=== PATIENT | female | born 1975 | race Caucasian/White ===

== ENCOUNTER → 2017-10-31 11:37 | Outpatient (CLI) | payer MEDICARE, SELFPAY ==
[2017-10-31 14:36] LABS: Anion Gap 8 (5-15); BUN 17 mg/dL (7-18); BUN/Creat Ratio 19.1 RATIO (10-20); Calcium,Total 8.6 mg/dL (8.5-10.1); Chloride 105 mmol/L (98-107); Creatinine, Serum 0.89 mg/dL (0.55-1.02); EST Glomerular Filtration Rate 73 mL/min (>60); Est Glom Filt Rate - Afr Amer 89 mL/min (>60); Glucose 98 mg/dL (74-106); Sodium Level 139 mmol/L (136-145)
[2017-11-01 08:33] LABS: Vitamin D,25 Hydroxy 52.5 ng/mL (29.95-100.01)
== END ==
PROVIDERS: Family Provider Family Medicine; PCP Family Medicine; Visit Provider Family Medicine
DX: I27.20 Pulmonary hypertension, unspecified (principal); E55.9 Vitamin D deficiency, unspecified
CPT/HCPCS: 36415; 80048; 82306

== ENCOUNTER → 2017-12-23 12:07 | Outpatient (CLI) | payer MEDICARE, SELFPAY ==
--- NOTE | 2017-12-23 09:00 | LES_PTH ---
PATIENT: ZAC LOCKHART LOC: [facility] U#:[id number] AGE/SX: 49/F ROOM: RE12/23/[address]: Dr. Ricky Augustin MD : 1975 BED: DIS: SPEC #: [id number] RECD: 12/23/17 11:50 STATUS: ADIA MIHIR #: [id number] KENZIE: 12/23/17 09:[address]: Ricky Augustin DEPT: SURGICAL PATHOLOGY RECD BY: Vitaliy Farias ENTERED: 12/25/17 10:36 SP TYPE: Lesion OTHR DR: Dr. Ed Barajas MD Tissues: A - Skin of arm B - Skin of arm C - Skin of arm Procedures: Surgery Specimen Level III HEADER OPERATION: Excision of subcutaneous lesions x3 PRE-OP DIAGNOSIS: Lesion of subcutaneous tissue L98.9 TISSUE SUBMITTED: A ? Subcutaneous lesion of right anterior arm, B - Subcutaneous lesion of right elbow, C - Subcutaneous lesion of left elbow MICROSCOPIC DIAGNOSIS A. Subcutaneous lesion, right anterior arm, biopsy: Mature adipose tissue, consistent with lipoma. B. Subcutaneous lesion, right elbow, biopsy: Mature adipose tissue, consistent with lipoma with focal area of angiolipoma and fibrolipoma. C. Subcutaneous lesion, left elbow, biopsy: Mature adipose tissue, consistent with lipoma. SJ:lisseth 12/26/17 MICROSCOPIC DESCRIPTION Slides are reviewed. GROSS DESCRIPTION A - Received in fixative is one container labeled with the patient's name and designated right posterior arm. The specimen consists of an irregular piece of adipose tissue measuring 6 x 5.5 x 3.5 cm. The external surface is inked. Sections reveal yellow adipose cut surfaces without areas of hemorrhage, necrosis or cystic degeneration. Fifth Grade Teacher sections are submitted in four cassettes. B - Received in fixative is one container labeled with the patient's name and designated right elbow. The specimen consists of two pieces of yellow adipose tissue measuring 3.5 x 3 x 2.5 cm and 3.5 x 3 x 2.5 cm. The external surface of one piece is inked black and other piece is inked blue. Sections reveal yellow adipose cut surfaces without areas of hemorrhage, necrosis or cystic degeneration. Fifth Grade Teacher sections are submitted in four cassettes as follows: 1 & 2 ? one piece, 3 & 4 ? second piece. C - Received in fixative is one container labeled with the patient's name and designated left elbow. The specimen consists of two pieces of yellow adipose tissue measuring 4 x 3 x 2 cm and 3.5 x 2.5 x 1.5 cm. The external surface of the larger piece is inked black and the smaller piece is inked blue. Sections reveal yellow adipose cut surfaces without areas of hemorrhage, necrosis or cystic degeneration. Fifth Grade Teacher sections are submitted in four cassettes as follows: 1 & 2 ? largest piece, 3 & 4 ? smaller piece. / SJ:lisseth 12/25/17 TC:1 CPT: 86124 x3
== END ==
PROVIDERS: Family Provider Family Medicine; PCP Family Medicine; Visit Provider Surgery
DX: L98.8 Other specified disorders of the skin and subcutaneous tissue (principal)
CPT/HCPCS: 88304; 88305

== ENCOUNTER → 2017-12-28 12:34 | Outpatient (CLI) | payer MEDICARE, SELFPAY | PROVIDERS: Family Provider Family Medicine; PCP Family Medicine; Visit Provider Nurse Practitioner Adult Health | DX: R10.9 Unspecified abdominal pain (principal) | CPT/HCPCS: 87086 ==

== ENCOUNTER 2019-05-16 05:42 | Day surgery (SDC) | payer MEDICARE, SELFPAY ==
--- NOTE | 2019-05-14 10:54 | HP.PCM_ITS ---
History and Physical Date of Admission: 05/16/19 Catalina Roach Physician ANGIOGRAPHY NURSE H&P Signed Encounter Date: 05/13/2019 Expand All Collapse All Hide copied text Abbi for details Mirta Diamond is a 43 year old female who presents for abnormal uterine bleeding. Patient recently saw me for abnormal uterine bleeding. Patient reports is still having light bleeding since last visit. Has endometrial polyp and submucosal fibroid. We discussed treatment options. Patient declines any hormonal intervention. Patient would like to proceed with a hysteroscopy, D&C, polypectomy and myomectomy with the symphion. Pt denies any chest pain, shortness of breath, dizziness. ? PAST?MEDICAL?HISTORY PAST MEDICAL HISTORY Diagnosis Date ? Abdominal pain, left lower quadrant ? ? Anemia, unspecified ? ? Blood in stool ? ? Depressive disorder, not elsewhere classified ? ? Diarrhea ? ? Fibromyalgia ? ? Hemorrhage of gastrointestinal tract, unspecified ? ? Left ovarian cyst 03/18/2011 ? Lupus erythematosus ? ? PAST?SURGICAL?HISTORY PAST SURGICAL HISTORY Procedure Laterality Date ? BUNIONECTOMY, LAPIDUS-TYPE ? 06/23 ? bilateral ? DELIVERY ONLY ? 1991 ? , low transverse ? COLONOSCOPY W/BX ? 02/21/11 ? LIGATE FALLOPIAN TUBE ? 1998 ? Tubal ligation ? PAST SURGICAL HISTORY OF ? 2007 ? torn patella tendon right knee ? PAST SURGICAL HISTORY OF ? 2008 ? right knee ? REMOVAL GALLBLADDER ? 2004 ? Cholecystectomy ? FAMILY?HISTORY FAMILY HISTORY Problem Relation Age of Onset ? other (Cancer, lung - heavy smoker) Father ? ? lung to brain ( at 68) ? Lipids Mother ? ? No Known Problems Brother ? ? in a car accident ? Diabetes Maternal Grandmother ? ? Colon Cancer Maternal Grandfather ? ? Diabetes Paternal Grandmother ? ? No Known Problems Paternal Grandfather ? ? Hypertension Brother ? ? No Known Problems Daughter ? ? No Known Problems Daughter ? ? No Known Problems Daughter ? ? No Known Problems Son ? ? 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 Social Needs Financial resource strain: Not on file Food insecurity: Worry: Not on file Inability: Not on file Transportation needs: Medical: Not on file Non-medical: Not on file Tobacco Use Smoking status: Former Smoker Smokeless tobacco: Never Used Substance and Sexual Activity Alcohol use: Yes Comment: rarely Drug use: Never Sexual activity: Yes Partners: Male control/protection: Tubal Ligation Lifestyle Physical activity: Days per week: Not on file Minutes per session: Not on file Stress: Not on file Relationships Social connections: Talks on phone: Not on file Gets together: Not on file Attends episcopalian service: Not on file Active member of club or organization: Not on file Attends meetings of clubs or organizations: Not on file Relationship status: Not on file Intimate partner violence: Fear of current or ex partner: Not on file Emotionally abused: Not on file Physically abused: Not on file Forced sexual activity: Not on file Other Topics Concerns: Not on file Social History Narrative Not on file ? CURRENT?MEDICATIONS ? Current Outpatient Medications: L.acidoph-B.lactis-B.longum (FLORAJEN3) 460 mg (7.5-6- 1.5 bill. cell) cap Take 1 capsule by mouth once daily. ranitidine (ZANTAC) 75 mg tablet Take 75 mg by mouth twice daily. METHOCARBAMOL ORAL Take by mouth as needed. PARoxetine (PAXIL) 20 mg tablet Take 20 mg by mouth once daily. gabapentin (NEURONTIN) 300 mg ORAL capsule Take 1 capsule by mouth four times daily. hydroxychloroquine (PLAQUENIL) 200 mg ORAL tablet Take 1 tablet by mouth twice daily. potassium chloride(K-DUR 10 MEQ TAB) Take one(1) tablet daily. FERROUS GLUCONATE 325 MG TAB 1 tab. three times daily ASPIRIN 325 MG TAB Take one(1) tablet daily. furosemide(LASIX 40 MG TAB) Take one(1) tablet daily. oxycodone hcl/acetaminophen(PERCOCET 7.5 MG-325 MG TAB) 1-2 tabs as needed meloxicam(MOBIC 15 MG TAB) Take one(1) tablet daily. multivitamins(DAILY MULTIVITAMIN TAB) Take one(1) tablet daily. mycophenolate mofetil(CELLCEPT 500 MG TAB) 1 tab. twice daily PREDNISONE 10 MG TAB Take one(1) tablet daily. ? No current facility-administered medications for this visit. Allergies As of Date: 05/13/2019 Allergen Noted Reaction CELEBREX [CELECOXIB] 10/28/2008 Swelling RED DYE 10/28/2008 Swelling ? Fully Assessed 05/13/2019 ? ? REVIEW OF SYSTEMS Abdomen: no pain. Bladder: no dysuria.. Expanded ROS: GENERAL: Negative for fever Allergies and current medication updated:Yes ? EXAM: BP 116/80 Ht 5' 1.5 (1.56m) Wt 185 lb (83.9kg) LMP 05/04/2019 BMI 34.39 kg/(m^2). ? GENERAL: pleasant, female in no apparent distress HEENT: Normocephalic and atraumatic NECK: Supple and full range of motion DERMATOLOGY: Normal, without lesions, non-icteric and non-hirsute CARDIAC: regular rate and rhythm CHEST: Clear to auscultation Normal inspiratory effort NEURO: alert and oriented x3,exam grossly non-focal EXTREMITIES: normal ? ASSESSMENT AND PLAN: Encounter Diagnosis ? ? ICD-10-CM ? 1. Abnormal uterine bleeding (AUB) N93.9 ? 2. Endometrial polyp N84.0 ? 3. Submucous uterine fibroid D25.0 ? ? 4. EMB- reviewed benign 5. Pt has been counseled on risks/benefits and alternatives of surgery including but not limited to anesthesia, bleeding, infection, uterine perforation with subsequent injury to pelvic structures including bowel, bladder, and vessels. Pt wishes to proceed with surgery at this time. 6. PRE OP meds reviewed- will take prednisone 7. Post op pain meds- has at home ? ? Catalina Ahn MD ?
[2019-05-16] VITALS (12 sets, daily range): BP systolic 95–134; BP diastolic 64–84; PULSE 51–66; RESP 16; TEMP 36.4–36.9; O2SAT 95–100; BMI 34.9
[2019-05-16 06:04] LABS: Internal QC Validated? YES +Cl - CLEAR BKGD
[2019-05-16 06:05] LABS: Pregnancy, Urine Negative Negative
[2019-05-16 06:10] LABS: Hematocrit 39.8 % (37-47); Hemoglobin 12.8 g/dL (12.0-15.0); Mean Corp Hgb Conc 32.2 g/dL (32-36); Mean Corpuscular Hgb 28.7 pg (27.0-32.0); Mean Corpuscular Volume 89.2 fL (81-99); Mean Platelet Vol. 10.2 fl (6.2-12.0); Platelet Count 386 K/mm3 (150-450); RBC Distribution Width CV 12.9 % (11.6-14.6); RBC Distribution Width SD 41.9 fl (35.1-43.9); Red Blood Count 4.46 M/mm3 (4.2-5.4); White Blood Count 6.9 K/mm3 (4.4-11.0)
[2019-05-16] MEDS: Lactated Ringers 1,000 ML 100 ML IV (06:16)
--- NOTE | 2019-05-16 07:30 | EMB_PTH ---
PATIENT: ZAC LOCKHART [place] [facility] [place][id number] AGE/SX: 43/F ROOM: RE05/16/[address]: Dr. Catalina Ahn, MDDOB: 1975 BED: DIS: 05/16/2019 SPEC #: [id number] RECD: 05/16/19 09:19 STATUS: ADIA MIHIR #: [id number] KENZIE: 05/16/19 07:[address]: Catalina Ahn DEPT: SURGICAL PATHOLOGY RECD BY: Jarrell Thurman ENTERED: 05/16/19 09:33 SP TYPE: ENDOM BX/C OTHR DR: Dr. Ed Barajas MD Tissues: Endometrium, NOS Procedures: Surgery Specimen Level IV HEADER OPERATION: Hysteroscopy, D & C with polypectomy and myomectomy PRE-OP DIAGNOSIS: Abnormal uterine bleeding; endometrial polyp; submucous uterine fibroid TISSUE SUBMITTED: Endometrial curettings, endometrial polyp, endometrial fibroid MICROSCOPIC DIAGNOSIS Endometrial curettings, endometrial polyp and endometrial fibroid, D & C: Dyschronous endometrium predominantly consists of mildly disordered proliferative endometrium with focal area of early secretory endometrium. Fragments of benign endocervical mucosa. Fragments of myometrium. YAZ:lisseth 05/17/19 MICROSCOPIC DESCRIPTION Slides are reviewed. GROSS DESCRIPTION Received in fixative is one container labeled with the patient's name and designated endometrial curettings, polyp and fibroid. The specimen consists of multiple fragments of hannah-pink to hemorrhagic soft tissue that in aggregate measure 5 x 3 x 0.6 cm. The entire specimen is submitted in four cassettes. / YAZ:lisseth 05/16/19 TC:5 CPT: 83612
--- NOTE | 2019-05-16 08:16 | OP.PCM_ITS ---
Problem List (1) Abnormal uterine bleeding (AUB) Status: Acute (2) Endometrial polyp Status: Acute (3) Submucous uterine fibroid Status: Acute Report of Operation Date of Procedure: 05/16/19 Pre-Operative Diagnosis: AUB, Endometrial Polyp, Submucosal fibroid Post-Operative Diagnosis: same Surgery/Procedure Performed:: Hysteroscopy, D&C, polypectomy, myomectomy Description of Surgical Findings:: Uterus sounded to approximately 10 cm. Endometrial cavity with multiple polypoid-like structures and a small submucosal fibroid located on the right lateral fundal aspect. operations lead: barbara RABAGO Type of Anesthesia:: MAC Specimen's removed: Endometrial curettings, Endometrial polyp, submucosal fibroid Drains: none Estimated Blood Loss (mL): 10 Fluids Replaced: 500 Description of Procedure: Informed consent was obtained the patient was taken the operating room she was placed in supine position. She was given anesthesia. She was then placed in the [facility] where she was prepped and draped in the normal sterile fashion. At this time the weighted speculum was placed in the posterior fornix of vagina. Single-tooth tenaculum was used to gently grasp the anterior lip the cervix. Bladder drained with a straight catheter approximately 40 cc of urine expelled. At this time the uterine cavity was sounded to approximately 10 cm. Gentle dilatation was performed once adequate dilatation of the cervix was achieved the hysteroscope using normal saline as a distention medium was placed. Endometrial polyps and submucosal fibroid visualized. Difficult distending the cavity due to size. Pressure of the symphion on infusion was set to 80. Otherwise no gross abnormalities. Resecting device used to remove the endometrial polyps as well as the submucosal fibroid. The fibroid was located on the right lateral fundal aspect of the uterus. Once completed appeared that the cavity was cleared of all tissue. A gentle sharp curettage was complete and minimal tissue obtained. Cavity remained intact. All tissue will be sent to pathology for evaluation. Procedure was deemed complete successful there are no complications. Anticipated normal postoperative course. Instrument lap count correct ?2. Fluid deficit approximately 400cc Vaginal Sweep was negative. Grafts/Implants Used: none - Complications none - Admit VTE Documentation VTE Present on Admission: Yes VTE Mechan Device Prophylaxis: SCD's VTE Pharm Prophylaxis ordered?: No
--- NOTE | 2019-05-16 08:22 | DCINST_ITS ---
Discharge Diet: No Restrictions Discharge Activity: Return to Normal Activity, May Shower, May Take a Tub Bath - in 2 weeks. Allergies/Adverse Reactions: Allergies celecoxib [From Celebrex] Allergy (Verified 05/16/19 06:08) Angioedema red (food color) Allergy (Verified 05/16/19 06:08) Angioedema Medications to take at Discharge aspirin 325 mg tablet 325 mg PO DAILY 11/08/17 ferrous gluconate 324 mg (36 mg iron) tablet 324 mg PO QDAY tab 11/08/17 furosemide 40 mg tablet 80 mg PO ONCE 11/08/17 gabapentin 300 mg capsule 300 mg PO BID 11/08/17 hydroxychloroquine 200 mg tablet 200 mg PO BID 11/08/17 meloxicam 15 mg tablet 15 mg PO QDAY 11/08/17 methocarbamol 750 mg tablet 750 mg PO Q6H 11/08/17 multivitamin tablet 1 tab PO QAM 11/08/17 oxycodone-acetaminophen 5 mg-325 mg tablet 1 tab PO PRN PRN 11/08/17 paroxetine 20 mg tablet 20 mg PO QAM 11/08/17 potassium chloride 20 mEq/15 mL oral liquid 10 meq PO QDAY 11/08/17 prasterone (dhea) 25 mg capsule 25 mg PO QDAY 11/08/17 prednisone 10 mg tablet 10 mg PO QDAY 11/08/17 Mycophenolate Mofetil [Cellcept] 500 mg PO BID 05/15/19 Ranitidine HCl [Acid Control] 75 mg PO DAILY 05/15/19 Primary Care Physician: Manny Barajas MD [Primary Care Provider] - Test Results: Test results from this visit will be discussed in further detail at your follow- up appointment, if applicable. Please Follow Up With: Catalina Ahn MD When: as scheduled
--- NOTE | 2019-05-16 08:32 | EKG12_ITS ---
Test Reason : T WAVE INVERSION Blood Pressure : / mmHG Vent. Rate : 065 BPM Atrial Rate : 065 BPM P-R Int : 142 ms QRS Dur : 090 ms QT Int : 460 ms P-R-T Axes : 015 020 -87 degrees QTc Int : 478 ms Normal sinus rhythm T wave abnormality, consider anterolateral ischemia Prolonged QT Abnormal ECG No previous ECGs available Confirmed by BERHANE TONG ([id number]), research editor IRAM CORDERO ([id number]) on 05/21/2019 1:32:22 PM Referred By: Catalina Ahn Confirmed By:BERHANE TONG
[2019-05-16 09:34] LABS: Anion Gap 7 (5-15); BUN 16 mg/dL (7-18); BUN/Creat Ratio 19.1 RATIO (10-20); Calcium,Total 8.3 mg/dL (8.5-10.1); Chloride 106 mmol/L (98-107); Creatinine, Serum 0.84 mg/dL (0.55-1.02); EST Glomerular Filtration Rate 79 mL/min (>60); Est Glom Filt Rate - Afr Amer 95 mL/min (>60); Estimated Creatinine Clearance 64.49 ml/min; Glucose 99 mg/dL (74-106); Potassium 3.7 mmol/L (3.5-5.1); Sodium Level 142 mmol/L (136-145); Thyroid Stim Hormone (TSH) 1.11 uIU/mL (0.358-3.74)
--- NOTE | 2019-05-16 09:55 | ECHOD_ITS ---
Reason For Study: Abnormal EKG in Surgery Procedure This was a 2D Doppler, Color Flow transthoracic echocardiogram. Exam performed in [employer]. Left Ventricle Normal size and thickness. The estimated ejection fraction is 60 %. No evidence for diastolic dysfunction. No regional wall motion abnormalities noted. Right Ventricle Normal RV size. Normal systolic function. Atria Normal left atrium. Normal right atrium. No doppler evidence for ASD. Mitral Valve There is no mitral valve stenosis. No mitral valve insufficiency. Tricuspid Valve There is no tricuspid stenosis. Unable to estimate RV systolic pressure due to inadequate jet, pulmonary artery pressure probably normal. Aortic Valve Trisinus/trileaflet aortic valve. There is no aortic stenosis. No aortic valve insufficiency. Pulmonic Valve There is no pulmonic valvular stenosis. No pulmonic valve insufficiency. Great Vessels Normal aortic root. Pericardium/Pleural No pericardial effusion. MMode/2D Measurements & Calculations LVIDd: 4.2 cm IVSd: 1.1 cm LA dimension: 2.9 cm LVIDs: 2.8 cm LVPWd: 1.1 cm FS: 33.3 % LAV(MOD-bp): 49.3 ml LA A4 area: 14.6 cm2 RA A4 area: 10.2 cm2 LAV(MOD-bp) Indexed: 26.9 ml/m2 LAV(MOD-sp2): 49.0 ml LAV(MOD-sp4): 38.2 ml Time Measurements MV dec time: 0.20 sec Doppler Measurements & Calculations MV E max jose angel: 82.7 cm/sec Med Peak E' Jose Angel: 9.7 cm/sec MV V2 max: 86.7 cm/sec MV A max jose angel: 60.8 cm/sec E/E' med: 8.5 MV max P.0 mmHg MV E/A: 1.4 MV V2 mean: 52.4 cm/sec MV mean P.2 mmHg MV V2 VTI: 27.9 cm MV P1/2t max jose angel: 84.7 cm/sec Ao V2 max: 103.0 cm/sec LV V1 max: 95.5 cm/sec MV P1/2t: 118.6 msec Ao max P.2 mmHg LV V1 max P.6 mmHg MV dec slope: 209.2 cm/sec2 MVA(P1/2t): 1.9 cm2 PA V2 max: 76.1 cm/sec TR max jose angel: 224.8 cm/sec TR max P.2 mmHg Interpretation Summary The estimated ejection fraction is 60 %. No evidence for diastolic dysfunction. Ordering Physician: Yefri Mcgrath Referring Physician: Catalina Ahn Performed By: Lopez Arvizu RCS
== END 2019-05-16 12:04 | disposition home or self-care (01) ==
LOC: SDC 05:43 → AC 05:44
PROVIDERS: Anesthesiology; Family Provider Family Medicine; PCP Family Medicine; Referring Provider Obstetrics & Gynecology; Visit Provider Obstetrics & Gynecology
PROC: 0UB98ZZ Excision of Uterus, Via Natural or Artificial Opening Endoscopic (ICD-10-PCS; CPT 58558; principal; 2019-05-16 07:15)
DX: N84.0 Polyp of corpus uteri (principal); D25.0 Submucous leiomyoma of uterus; N93.9 Abnormal uterine and vaginal bleeding, unspecified; D64.9 Anemia, unspecified; F32.9 Major depressive disorder, single episode, unspecified; M79.7 Fibromyalgia; K21.9 Gastro-esophageal reflux disease without esophagitis; Z79.52 Long term (current) use of systemic steroids; Z87.891 Personal history of nicotine dependence; Z79.82 Long term (current) use of aspirin; Z79.899 Other long term (current) drug therapy
CPT/HCPCS: 58558; 36415; 80048; 81025; 83735; 84443; 84484; 85027; 88305; 93005; 93306; J7120

== ENCOUNTER 2019-09-28 23:57 | Emergency (ER) | payer MEDICARE, SELFPAY ==
[2019-05-21 14:32] VITALS: BMI 34.5
[2019-09-28 23:58] VITALS: BP 158/93; PULSE 79; RESP 20; TEMP 36.3; O2SAT 95; BMI 35.3
--- NOTE | 2019-09-29 00:34 | RAD_ITS ---
HISTORY: cough; sob ADDITIONAL HISTORY: None provided. COMPARISON: 10/30/2010 TECHNIQUE: Frontal and lateral chest radiographs. Number of images including paperwork: 2 FINDINGS: LUNGS AND PLEURA: Airspace opacities in the right upper lobe and right middle lobe. Blunting of the right costophrenic angle suggesting small pleural effusion. CARDIAC SILHOUETTE: Unremarkable. MEDIASTINUM AND FARHEEN: Unremarkable. UPPER ABDOMEN: Right upper quadrant surgical clips. SKELETON AND SOFT TISSUES: No acute findings. Degenerative changes. OTHER DEVICES AND HARDWARE: None. RAD/Chest PA and Lateral IMPRESSION: Right upper lobe and right middle lobe infiltrates suggestive of pneumonia. at 0113 Reported and signed by: Sabrina Matta MD Electronically Signed: Sabrina Matta MD at 1:13 EST Tel , Service support ,
--- NOTE | 2019-09-29 00:34 | ED.VISSUMM ---
- ER Visit Summary Date of Service: 09/29/19 Chief Complaint: Cough History of Present Illness: The patient is a 44 F who presents with a cough that has been getting progressively worse over the past week. Patient saw her primary care physician earlier this week who prescribed her doxycycline. Patient states she has not had any improvement with this. Patient states her cough is better with a vaporizer and with a hot shower. Patient states she feels like she has tightness and crackling in her chest. Patient admits to some nasal congestion and sinus pressure. Patient also admits to a cough with some blood-tinged sputum. Patient admits to subjective fevers at home earlier this week but denies any fevers today. Physical Examination: Vital signs are stable. Patient is afebrile. Patient is in no acute distress. Oral mucosa is pink and moist. Neck is supple. Trachea is midline. There is no JVD. Heart was regular rate and rhythm. Lungs showed diffuse expiratory wheezing and rhonchi. There is good respiratory effort noted. Abdomen is soft. Bowel sounds are normal. There is no tenderness. Cranial nerves II through XII are intact. There are no focal motor or sensory deficits noted. Test Results: PA and lateral chest x-ray was obtained. There are right upper lobe and right middle lobe infiltrates. This was interpreted by the radiologist and reviewed by myself. Emergency Department Course and Treatment: Patient was given a DuoNeb here. Patient was given her first dose of Levaquin here. Patient was instructed to stop the doxycycline. Patient was given prescriptions for Levaquin and albuterol inhaler. Patient was instructed to follow-up with her primary care physician in 5 to 7 days. Patient understood and was agreeable with the plan. All questions answered. Disposition: Discharge home Impression: Community-acquired pneumonia This note was generated with [employer] dictation software. It may contain incorrect words, spelling, and punctuation that were not noted in review of the chart prior to signing ED Disposition - Plan for ED Patient: Disposition: Home or Assisted Living Diagnosis: Pneumonia Instructions: PNEUMONIA (Adult) Prescriptions: Levofloxacin [Levaquin] 750 mg PO DAILY #6 tab Prescription Printed Albuterol Inhaler [Ventolin Hfa] 1 - 2 puff INHALATION Q4H PRN PRN #1 inhaler PRN Reason: Wheezing Prescription Printed Referrals: Manny Barajas MD [Primary Care Provider] - 5-7 Days
[2019-09-29] MEDS: Ipratropium/Albuterol Sulfate 3 ML AMPUL.NEB INHALATION (00:44)
[2019-09-29 00:48] VITALS: PULSE 63; RESP 18
[2019-09-29 01:24] VITALS: PULSE 77; RESP 15; O2SAT 98
[2019-09-29] MEDS: levoFLOXacin 750 MG Tablet PO (01:29)
[2019-09-29 01:37] VITALS: O2SAT 95
== END 2019-09-29 01:39 | disposition home or self-care (01) ==
PROVIDERS: Emergency Provider Emergency Medicine; PCP Family Medicine
DX: J18.9 Pneumonia, unspecified organism (principal); E66.9 Obesity, unspecified
CPT/HCPCS: 71046; 94640; 99283

== ENCOUNTER → 2019-10-09 10:42 | Outpatient (CLI) | payer MEDICARE, SELFPAY ==
[2019-09-28 23:58] VITALS: BMI 35.3
--- NOTE | 2019-10-09 10:49 | RAD_ITS ---
STUDY: X-RAY CHEST REASON FOR EXAM: Female, 44 years old. Fever and cough TECHNIQUE: PA and lateral views of the chest. COMPARISON: 09/29/2019 FINDINGS: The lungs are clear and expanded. There is no demonstrated pleural abnormality. Normal size heart. Normal mediastinum and dawn. Normal visualized pulmonary arteries. Normal visualized aortic arch and descending thoracic aorta. Normal visualized thoracic spine. Normal visualized ribs, clavicles, and shoulders. There is no demonstrated abnormality of the visualized soft tissue structures of the upper abdomen. RAD/Chest PA and Lateral IMPRESSION: Normal x-ray examination of the chest. Electronically Signed: Joel Stanley MD at 12:59 EST , Service support ,
[2019-10-09 12:19] LABS: Absolute Lymphocyte Count 1.08 X10^3/uL (0.83-4.51); Basophil# 0.05 X10^3/uL; Basophil% 0.6 % (0-1); Eosinophil# 0.04 X10^3/uL; Eosinophils% 0.5 % (0-5); Hematocrit 41.2 % (37-47); Hemoglobin 13.6 g/dL (12.0-15.0); Lymphocyte # 1.08 X10^3/ul (4.0); Lymphocyte % 12.4 % (19-41); Mean Corpuscular Hgb 29.2 pg (27.0-32.0); Mean Corpuscular Volume 88.4 fL (81-99); Mean Platelet Vol. 10.3 fl (6.2-12.0); Monocyte# 0.51 X10^3/uL; Monocyte% 5.8 % (0-10); NRBC Flagged by Analyzer 0 % (0-5); Neutrophil # 6.98 X10^3/uL (2.7-7.7); Neutrophil % 79.8 % (47-70); Platelet Count 488 K/mm3 (150-450); RBC Distribution Width CV 13.4 % (11.6-14.6); RBC Distribution Width SD 43.2 fl (35.1-43.9); Red Blood Count 4.66 M/mm3 (4.2-5.4); White Blood Count 8.7 K/mm3 (4.4-11.0)
== END ==
PROVIDERS: PCP Family Medicine; Referring Provider Family Medicine; Visit Provider Family Medicine
DX: J18.9 Pneumonia, unspecified organism (principal)
CPT/HCPCS: 36415; 71046; 85025

== ENCOUNTER → 2020-01-09 | Outpatient (CLI) | payer MEDICARE, SELFPAY ==
[2019-12-31 10:26] VITALS: BMI 35.3
--- NOTE | 2020-01-09 12:07 | RAD_ITS ---
STUDY: X-RAY CHEST REASON FOR EXAM: Female, 44 years old. COUGH TECHNIQUE: PA and lateral views of the chest. COMPARISON: Comparison is made with prior examination dated October 09, 2019. FINDINGS: The lungs are clear and expanded. There is no demonstrated pleural abnormality. Normal size heart. Normal mediastinum and dawn. Normal visualized pulmonary arteries. Normal visualized aortic arch and descending thoracic aorta. Normal visualized thoracic spine. Normal visualized ribs, clavicles, and shoulders. There is no demonstrated abnormality of the visualized soft tissue structures of the upper abdomen. RAD/Chest PA and Lateral IMPRESSION: Normal x-ray examination of the chest. Electronically Signed: Paxton Hong, at 15:37 EDT , Service support ,
== END | disposition home or self-care (01) ==
LOC: MTLAB 12:04
PROVIDERS: PCP Family Medicine; Referring Provider Family Medicine; Visit Provider Family Medicine
DX: J20.9 Acute bronchitis, unspecified (principal)
CPT/HCPCS: 71046

== ENCOUNTER → 2020-07-16 06:54 | Outpatient (CLI) | payer MEDICARE, SELFPAY ==
[2020-06-29 13:31] VITALS: BMI 36.3
--- NOTE | 2020-07-16 14:58 | STRESSREP ---
Stress Test Report Date: 07/16/2020 Procedure: Exercise tolerance test/imaging study Indications: Chest pain Consent: Per the patient Procedure: The patient exercised on a Blake protocol for 3 minutes achieving a peak heart rate of 153 bpm (87% predicted maximal heart rate) with a peak blood pressure 158/90 mmHg and a peak MET capacity of 4.6 METs. The baseline ECG demonstrated sinus rhythm with nonspecific ST-T changes in the inferior and lateral leads. The peak exercise ECG demonstrated sinus tachycardia with about [address] depressions in the lateral leads and about 1 to 2 mm horizontal to downsloping ST depressions in the inferior leads. EKG during recovery revealed return of ST segments to baseline [There were no cardiac dysrhythmias pretest, during exercise, or recovery]. The functional capacity was considered significantly decreased for age. Patient had chest tightness with exertion that resolved in the recovery period. The examination was discontinued secondary to dyspnea, chest discomfort. Impression: 1. Technically adequate (percent predicted maximal heart rate greater than 85%) exercise tolerance test 2. Stress test is positive for exercise-induced EKG changes of ischemia 3. The test test is positive for exercise-induced chest pain 4. Functional capacity is significantly decreased 5. Nuclear images pending Myocardial perfusion imaging study: Technique: The patient was injected with 11.9 mCi of technetium 99m Cardiolite and subsequently rest SPECT Cardiolite nuclear imaging was obtained in the horizontal long, vertical long, and short axis views. The patient exercised on a Blake protocol. Please see above for details. The patient was injected with 33.3 mCi of technetium 99m Cardiolite and subsequently stress SPECT Cardiolite nuclear imaging was obtained in the horizontal long, vertical long, and short axis views. A gated Cardiolite study at peak stress was obtained. Interpretation: Rest and stress SPECT Cardiolite nuclear imaging status post realignment, normalization, and attenuation correction, demonstrates no evidence of significant ischemia or infarction. The gated Cardiolite study demonstrates no significant regional wall motion abnormalities. The reported LVEF is greater than 70%. Impression: 1. There is no evidence of significant ischemia or infarction on the nuclear portion of the test. Please see above for the EKG portion. 2. The gated Cardiolite study reports an LVEF of greater than 70%. This note was generated with [employer] software. It may contain incorrect words, spelling, and punctuation that were not noted in checking the note before signing.
== END ==
PROVIDERS: PCP Family Medicine; Referring Provider Specialist; Visit Provider Specialist
DX: R07.9 Chest pain, unspecified (principal); R00.2 Palpitations
CPT/HCPCS: 78452; 93017; 93225; 93226; A9500; A4216

== ENCOUNTER 2020-07-30 09:55 | Day surgery (SDC) | payer MEDICARE, SELFPAY ==
[2020-07-23 13:58] VITALS: BMI 36.0
[2020-07-23 15:53] LABS: Absolute Lymphocyte Count 1.67 X10^3/uL (0.83-4.51); Absolute Neutrophil Count 7.1 X10^3/uL (2.0-7.7); Basophil# 0.06 X10^3/uL; Basophil% 0.6 % (0-1); Eosinophil# 0.03 X10^3/uL; Eosinophils% 0.3 % (0-5); Hematocrit 42.8 % (37-47); Hemoglobin 14.2 g/dL (12.0-15.0); Lymphocyte # 1.67 X10^3/ul (4.0); Lymphocyte % 17.4 % (19-41); Mean Corp Hgb Conc 33.2 g/dL (32-36); Mean Corpuscular Hgb 29.6 pg (27.0-32.0); Mean Corpuscular Volume 89.2 fL (81-99); Mean Platelet Vol. 10.5 fl (6.2-12.0); Monocyte# 0.67 X10^3/uL; NRBC Flagged by Analyzer 0 % (0-5); Neutrophil # 7.13 X10^3/uL (2.7-7.7); Neutrophil % 74.4 % (47-70); Platelet Count 420 K/mm3 (150-450); RBC Distribution Width CV 13.1 % (11.6-14.6); RBC Distribution Width SD 42.7 fl (35.1-43.9); White Blood Count 9.6 K/mm3 (4.4-11.0)
[2020-07-23 16:04] LABS: Prothrombin Time (Protime)PT. 12.8 SECONDS (11.7-14.9)
[2020-07-23 16:18] LABS: Anion Gap 9 (5-15); BUN 17 mg/dL (7-18); BUN/Creat Ratio 18.5 RATIO (10-20); Calcium,Total 8.7 mg/dL (8.5-10.1); Chloride 106 mmol/L (98-107); Creatinine, Serum 0.92 mg/dL (0.55-1.02); EST Glomerular Filtration Rate 70 mL/min (>60); Est Glom Filt Rate - Afr Amer 85 mL/min (>60); Glucose 140 mg/dL (74-106); Potassium 3.3 mmol/L (3.5-5.1); Sodium Level 140 mmol/L (136-145)
[2020-07-29 08:12] VITALS: BMI 36.0
--- NOTE | 2020-07-30 06:00 | HP_ITS ---
HPI HPI History of Present Illness Details: 05/21/2019: 43-year-old female referred to our office after she was found to have an abnormal EKG done postoperatively after PULVERIZER TENDER procedure. EKG shows sinus rhythm with T wave inversions in the anterior and lateral leads. Patient does not have significant cardiac complaints. She denies any chest pain, orthopnea, PND, dizziness, syncope. She does have some dyspnea when she climbs stairs. There is is not anything new for her. 07/23/2020: Patient had a Holter which revealed no significant arrhythmias. Stress test revealed abnormal EKG changes and stress images chest pain but the nuclear portion was negative. Patient continues to have occasional chest pain. She has cut down on her caffeine use after the Holter monitoring. 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 Accompanied by: Is patient in pain?: Yes (chest) Pain scale (1-10): 1 Allergies acetaminophen [From Darvocet-N 100] Allergy (Intermediate, Verified 07/23/20 14:01) unknown propoxyphene [From Darvocet-N 100] Allergy (Intermediate, Verified 07/23/20 14:01) unknown celecoxib [From Celebrex] Allergy (Verified 07/23/20 14:01) Angioedema red (food color) Allergy (Verified 07/23/20 14:01) Angioedema Medications aspirin 325 mg tablet 325 mg PO DAILY 11/08/17 [History Confirmed 07/23/20] meloxicam 15 mg tablet 15 mg PO QDAY 11/08/17 [History Confirmed 07/23/20] multivitamin 1 tab PO QAM 11/08/17 [History Confirmed 07/23/20] paroxetine HCl 20 mg tablet 20 mg PO QAM 11/08/17 [History Confirmed 07/23/20] prasterone (dhea) 25 mg capsule 25 mg PO QDAY 11/08/17 [History Confirmed 07/23/20] prednisone 10 mg tablet 10 mg PO QDAY 11/08/17 [History Confirmed 07/23/20] Mycophenolate Mofetil [Cellcept] 500 mg PO BID 05/15/19 [History Confirmed 07/23/20] gabapentin 300 mg capsule 300 mg PO 4X/DAY cap 05/20/19 [History Confirmed 07/23/20] oxycodone-acetaminophen 5 mg-325 mg tablet 1 tab PO Q6H PRN tab 05/20/19 [History Confirmed 07/23/20] ferrous gluconate 324 mg (36 mg iron) tablet 324 mg PO TID tab 05/21/19 [History Confirmed 07/23/20] fluticasone propionate 50 mcg/actuation nasal spray,suspension 2 spray INTRANASAL DAILY PRN 05/21/19 [History Confirmed 07/23/20] methocarbamol 750 mg tablet 750 mg PO 4X/DAY PRN tab 05/21/19 [History Confirmed 07/23/20] potassium chloride 20 mEq tablet,extended release 20 meq PO DAILY 05/21/19 [History Confirmed 07/23/20] Albuterol Inhaler [Ventolin Hfa] 1 - 2 puff INHALATION Q4H PRN PRN #1 inhaler 09/29/19 [Rx Confirmed 07/23/20] esomeprazole magnesium 20 mg capsule,delayed release 20 mg PO DAILY PRN 06/29/20 [History Confirmed 07/23/20] furosemide 40 mg tablet 80 mg PO DAILY tab 06/29/20 [History Confirmed 07/23/20] Ejection fraction %: 60 to 64 PFSH Medical History Abnormal EKG (Acute) Essential hypertension (Chronic) Abnormal uterine bleeding (AUB) (Resolved) Endometrial polyp (Resolved) Submucous uterine fibroid (Resolved) Multiple lipomas (Chronic) Lupus (Chronic) Fibromyalgia (Chronic) Pulmonary hypertension (Chronic) Vitamin D deficiency (Chronic) Anemia (Resolved) Hypokalemia (Resolved) Surgical History History of uterine fibroid (Chronic 05/16/19) History of bilateral tubal ligation (Resolved) History of nasal surgery (Resolved) Previous section (Resolved) S/P bunionectomy (Resolved) S/P laparoscopic cholecystectomy (Resolved) S/P right knee surgery (Resolved) Family History Father Cancer lung Grandmother Diabetes Brother Hypertension Social History (Updated 07/23/20 @ 14:[address] Terra Johnston MD) Smoking Status: Former smoker how long ago did patient quit smokin years ago alcohol intake: never substance use type: does not use caffeine: Yes Type: carbonated beverages, coffee Number of servings: 6 ROS Const Const: Negative for fatigue, weakness, headache(s), frequent falls, difficulty sleeping or excessive sweating Eyes Eyes: Negative for loss of peripheral vision, transient loss of vision, blurry vision, double vision or tunnel vision ENT ENT: Negative for headache(s), dizziness, Nosebleed/epistaxis or balance problems Cardio Chest Pain: Yes Character: sharp, tightness Onset: other (randomly) Location: mid sternal, left chest Duration: brief Palpitations: Yes feels like its: thumping, irregular Edema: Bilateral Muscle aches with walking: None Resp Respiratory: Positive for SOB with activity and SOB at rest (Occasionally); negative for SOB orthopnea\SOB lying down, Cough or paroxysmal nocturnal dyspnea GI GI: Negative nausea, vomiting, heartburn or black,tarry stools : Negative for hematuria Musc Musc: Positive for muscle weakness and joint pain; negative for muscle aches/ myalgia or balance problems Skin Skin: Negative non-healing lesions, rash or unusual bruising Neuro Neuro: Positive for lightheadedness (Occasionally); negative for dizziness, near syncope, syncope, frequent falls, headache(s), weakness, blurry vision, double vision or lack of coordination Mark Hematologic/Lymphatic: Negative for easy bleeding or easy bruising Endo Endo: Negative for fatigue, excessive sweating or increased thirst/drinking Psych Psych: Negative for anxiety or depression Allergy Allergy/Immunology: Negative for hives, Negative for rash Cardiology Exam Const Appearance: cooperative; negative acute distress Nutritional Appearance: well nourished Head Head: normocephalic and atraumatic Ears: hearing grossly normal bilaterally Nose: external nose normal Face and Sinus: face symmetric Mouth: moist mucous membranes Teeth and gingiva: fair dentition Eyes General: appearance normal, both eyes and all related structures Eyelids: eyelids normal Conjunctivae: conjunctivae normal Neck Neck: trachea midline and no JVD Chest Chest inspection: symmetric chest movement; negative pursed lip breathing Auscultation: Bilateral: Clear to Auscultation Cardio Rate: regular rate Rhythm: regular rhythm Heart sounds: S1 normal and S2 normal No Murmurs GI GI: normal to inspection Neuro General: alert, awake and oriented x3 Gait: Negative ataxic Skin Skin: no rashes or lesions noted; negative atrophy or jaundice Extremities Pulses: Normal: Right Posterior Tibial Pulse, Left Posterior Tibial Pulse Lower Extremity Edema: None: Bilateral Musculoskel Musculoskeletal: No joint tenderness Psych Psychological: normal affect Assessment & Plan 1. Chest pain, unspecified type R07.9 Plan Stress test is abnormal. We will proceed with coronary angiography. Risks and benefits explained to the patient and her in detail. Orders Orders: Left Heart Cath/COR/LV Percut Today Basic Metabolic Profile (BMP) Today Prothrombin Time w/INR Today CBC W/Diff, Automated Today 2. Palpitations R00.2 Plan 48-hour Holter did not reveal significant arrhythmias. Patient is cutting down her caffeine intake. 3. Essential hypertension I10 Coding Level of Care Code Off vis,est,level 3 Diagnoses Chest pain, unspecified type R07.9 ??Chest pain type: unspecified Palpitations R00.2 Essential hypertension I10 Coding Level of Care Code Off vis,est,level 3 Diagnoses Chest pain, unspecified type R07.9 ??Chest pain type: unspecified Palpitations R00.2 Essential hypertension I10 Supplemental Info Supplemental Information Labs LDL Cholesterol 97 mg/dL (0-130) 08/30/17 HDL Cholesterol 62 mg/dL (40-) 08/30/17 Triglycerides 128 mg/dL (-199) 08/30/17 VLDL Cholesterol 26 mg/dL (5-40) 08/30/17 Diagnostics Electrocardiogram 05/16/19 Echocardiogram 05/16/19 Stress Test Nuclear Medicine 07/16/20 Stress Test 07/16/20 Chest X-Ray 01/09/20
[2020-07-30 10:19] LABS: Potassium 3.9 mmol/L (3.5-5.1)
[2020-07-30 10:21] LABS: Internal QC Validated? YES +Cl - CLEAR BKGD; Pregnancy, Serum, hCG Quali. NEGATIVE Negative
--- NOTE | 2020-07-31 17:16 | CL.D_ITS ---
Patient Name: ZAC LOCKHART Study Date: 07/30/2020 Performing: Lito Johnston MD Ht: 62 inches 157 cm : 1975 Wt: 196.5 lbs 89 kg Age: 44 Gender: female BSA: 1.89 PROCEDURE(S) PERFORMED [id number]-XPO/COR CLINICAL PROFILE AND INDICATIONS Indications: Worsening Angina Heart Failure: None Stress/Imaging Stress Test w/SPECT MPI: Yes Result: Positive Intermediate RiskStress Test with SP ECT MPI: Positive Intermediate Risk CAD Presentations: Unstable angina. CONCLUSIONS RECOMMENDATIONS No significant CAD. No significant DESCRIPTION OF PROCEDURE The patient arrived to the procedure lab. The risks and benefits of the procedure as well as a full d escription of our services here and current unavailability of surgical backup were fully explained to the patient and/or their significant other prior to the catheterization. The Timeout was completed, verifying the correct patient and procedure. The patient's procedural site was prepped and draped in the usual fashion. Local anesthetic was given subcutaneously to right radial region with Lidocaine 2% . Using a modified Seldinger technique, arterial access was obtained via the right radial artery, a 6 Fr sheath was inserted. Left Coronary Artery selective angiography was performed in multiple views u sing a 5 Fr. JL3.5 catheter. Right Coronary Artery selective angiography was then performed in multip le views using a 5 Fr. JR 4 catheter. Left Ventriculography was performed in CHENG projection using a 5 Fr. JR 4catheter, catheter pulled back to AO. LV to AO pullback pressures were then recorded.The arterial sheath was pulled and a TR Band was applied for hemostasis. 14cc of air CORONARY ANGIOGRAPHY DOMINANCE: Co- Dominant LEFT HEART ASSESSMENT LEFT MAIN: Angiographically normal CIRCUMFLEX ARTERY: Angiographically normal RIGHT CORONARY ARTERY: Angiographically normal VALVE FINDINGS: No Aortic Valve Stenosis COMPLICATIONS No Complications PROCEDURE MEDICATIONS Fentanyl 50 mcg IV Versed 1 mg IV Oxygen: 2 L/min via nasal cannula Heparin given IA 07/30/2020 12:12:02 Verapamil 2.5mg, Ntg 100mcgs, 3000 units of Heparin given IA 07/30/2020 12:12:02 SUMMARY OF HEMODYNAMIC DATA Time AIR REST ECG 10:25:36 AO 105/58 (82) SA 12:15:01 LV 120/6, 33 12:23:09 LV 123/7, 21 12:23:16 Signed By Lito Johnston MD On 07/31/2020 17:15:29 Lito Johnston MD
== END 2020-07-30 14:05 | disposition home or self-care (01) ==
LOC: CLSP 09:56
PROVIDERS: PCP Family Medicine; Referring Provider Specialist; Visit Provider Specialist
DX: I20.0 Unstable angina (principal); R07.9 Chest pain, unspecified; R00.2 Palpitations; I10 Essential (primary) hypertension; R94.31 Abnormal electrocardiogram [ECG] [EKG]; I27.20 Pulmonary hypertension, unspecified; Z79.899 Other long term (current) drug therapy; Z87.891 Personal history of nicotine dependence
CPT/HCPCS: 36415; 80048; 84132; 84703; 85025; 85610; 93454; 99152; 99153; J7040; Q9967; C1769; C1894

== ENCOUNTER → 2020-09-21 10:05 | Outpatient (CLI) | payer MEDICARE, SELFPAY ==
[2020-08-17 13:54] VITALS: BMI 36.6
--- NOTE | 2020-09-21 10:09 | RAD_ITS ---
STUDY: X-RAY CHEST REASON FOR EXAM: Female, 45 years old. Shortness of breath for months. Chest pain on inspiration. History of pneumonia last year. TECHNIQUE: PA and lateral views of the chest. COMPARISON: 01/09/2020. FINDINGS: The lungs are clear and expanded. There is no demonstrated pleural abnormality. Normal size heart. Normal mediastinum and dawn. Normal visualized pulmonary arteries. Normal visualized aortic arch and descending thoracic aorta. Normal visualized thoracic spine. Normal visualized ribs, clavicles, and shoulders. There is no demonstrated abnormality of the visualized soft tissue structures of the upper abdomen. RAD/Chest PA and Lateral IMPRESSION: No acute cardiopulmonary disease or major interval change. Electronically Signed: Willie Arguelles DO at 23:58 EST Tel [phone], Service support ,
[2020-09-21 12:31] LABS: Erythrocyte Sedimentation Rate 15 mm/hr (0-30)
[2020-09-21 12:45] LABS: Vitamin B12 754 pg/mL (211-911); Vitamin D,25 Hydroxy 25.2 ng/mL
[2020-09-21 12:46] LABS: Anion Gap 9 (5-15); BUN 18 mg/dL (7-18); Calcium,Total 8.7 mg/dL (8.5-10.1); Chloride 107 mmol/L (98-107); EST Glomerular Filtration Rate 72 mL/min (>60); Est Glom Filt Rate - Afr Amer 87 mL/min (>60); Glucose 115 mg/dL (74-106); Iron 74 ug/dL (50-170); Potassium 3.8 mmol/L (3.5-5.1); Sodium Level 138 mmol/L (136-145); Thyroid Stim Hormone (TSH) 0.78 uIU/mL (0.358-3.74)
== END ==
PROVIDERS: PCP Family Medicine; Referring Provider Family Medicine; Visit Provider Family Medicine
DX: M79.7 Fibromyalgia (principal); E87.6 Hypokalemia; R53.83 Other fatigue; L93.0 Discoid lupus erythematosus; R06.02 Shortness of breath
CPT/HCPCS: 36415; 71046; 80048; 82306; 82607; 83540; 84443; 85652

== ENCOUNTER → 2020-10-06 06:57 | Outpatient (CLI) | payer MEDICARE, SELFPAY ==
[2020-08-17 13:54] VITALS: BMI 36.6
--- NOTE | 2020-10-07 13:33 | PFT ---
INTRODUCTION: The patient is a 45-year-old female that presents for pulmonary function studies secondary to a diagnosis of pneumonia. Respiratory therapy reports good patient effort. Bronchodilators were used during testing. INTERPRETATION: Forced expiration spirometry demonstrates no evidence of a large airways obstructive ventilatory defect. There was no significant response to aerosolized bronchodilators. Spirograms are of good quality and plateau normally. The respiratory flow volume loop appears normal. Body plethysmography was performed and reveals lung volumes to be within normal limits. Diffusing capacity by single breath CO was also within normal limits. IMPRESSION: Grossly normal pulmonary function studies.
== END ==
PROVIDERS: PCP Family Medicine; Referring Provider Family Medicine; Visit Provider Family Medicine
DX: Z87.01 Personal history of pneumonia (recurrent) (principal)
CPT/HCPCS: 94060; 94726; 94729

== ENCOUNTER → 2020-11-03 10:14 | Outpatient (CLI) | payer MEDICARE, SELFPAY ==
[2020-08-17 13:54] VITALS: BMI 36.6
--- NOTE | 2020-11-03 10:27 | BD_ITS ---
STUDY: DUAL ENERGY X-RAY ABSORPTIOMETRY / DXA REASON FOR EXAM: Female, 45 years old. Z79.52 TECHNIQUE: Bone Mineral Density (BMD) measurements of lumbar spine and bilateral hips were obtained. COMPARISON: Comparison is made with prior study dated 06/27/2017 FINDINGS: Lumbar Spine (L1-L4): g/cm2 (1.061) / T-score (-1.0) / Z-score (-0.9) Findings are suggestive of normal bone density with a low fracture risk. Left Femur Total: g/cm2 (0.952) / T-score (-0.4) / Z-score (-0.1) Left Femoral Neck: g/cm2 (0.922) / T-score (-0.8) / Z-score (-0.2) Right Femur Total: g/cm2 (0.994) / T-score (-0.1) / Z-score (0.2) Right Femoral Neck: g/cm2 (0.928) / T-score (-0.8) / Z-score (-0.2) The T-Scores on the most recent prior examination were: Lumbar Spine (L1-L4): There has been improvement of bone density since the previous examination. Left Femur Total: which represents a worsening of 2.8%. Right Femur Total: which represents a worsening of 1.6%. BD/Dexa Bone Density Study IMPRESSION: The patient is considered normal as outlined below according to World Ayan Organization (WHO) criteria with a low fracture risk. There has been worsening of bone density since the previous examination. Reference Information: The T-score is the number of standard deviations above or below the standard which is normal for young adults at their peak bone mineral density. The World Health Organization (WHO) interprets the T-scores as follows: Above -1 Normal bone density Between -1 and -2.5 Osteopenia Equal to / or below -2.5 Osteoporosis As a practical clinical guideline, osteopenia may be graded as follows: Mild -1 through -1.5 Moderate -1.6 through -2.0 Severe -2.1 through -2.4 The Z-score is the number of standard deviations above or below age-matched controls. A Z-score of less than -1.5 would be considered abnormal. References: 1. NIH Osteoporosis and Related Bone Diseases www osteo.org 2. International Society for Clinical Densitometry www iscd.org 3. National Osteoporosis Foundation www nof.org Electronically Signed: Paxton Hong MD at 14:37 EDT , Service support ,
== END ==
PROVIDERS: PCP Family Medicine; Referring Provider Family Medicine; Visit Provider Family Medicine
DX: L93.0 Discoid lupus erythematosus (principal); Z79.52 Long term (current) use of systemic steroids
CPT/HCPCS: 77080

== ENCOUNTER 2021-03-04 07:54 | Inpatient (IN) | payer MEDICARE, SELFPAY ==
[2020-08-17 13:54] VITALS: BMI 36.6
[2021-03-04 07:56] VITALS: BP 130/75; PULSE 99; RESP 17; TEMP 37.4; O2SAT 99; BMI 34.9
--- NOTE | 2021-03-04 08:24 | CT_ITS ---
STUDY: CT ABDOMEN AND PELVIS WITH CONTRAST REASON FOR EXAM: Female, 45 years old. Diffuse abdominal pain. History of lupus. RADIATION DOSAGE (If Supplied By Facility): CTDIvol = ( 13.97 ) mGy, DLP = ( 1101 ) mGycm TECHNIQUE: Transaxial images were obtained from the dome of the diaphragm to the symphysis pubis without oral contrast. IV 100mL Isovue-300 was administered. Sagittal and coronal images were reconstructed. Individualized dose optimization techniques were used for this CT. COMPARISON: Comparison is made with prior study dated 03/07/2017. FINDINGS: The visualized lung bases are unremarkable. The visualized portions of the heart are within normal limits. There is decreased attenuation of the liver consistent with steatosis. There is a 3 cm x 2.3 cm hypodensity in the tip of the right lobe of the liver. This may represent an hemangioma. This is essentially unchanged. There are surgical clips in the gallbladder fossa consistent with a prior cholecystectomy. Normal spleen. Normal pancreas. Normal bilateral adrenal glands. Normal right kidney. Tiny calculus in the midpole calyx of the left kidney. Normal visualized stomach. Questionable inflammatory changes in the terminal and distal ileum. Normal colon. Mild degree of inflammatory changes are seen in the right lower quadrant and right hemipelvis. Normal abdominal aorta. Normal inferior vena cava. Normal retroperitoneum. Normal urinary bladder. There is a 2 cm x 1.9 cm cyst in the left ovary. Fibroid uterus. There is a small umbilical hernia containing fat. Normal osseous structures. CT/Abdomen/Pelvis W IV Cont ONLY IMPRESSION: Findings suggestive of inflammatory changes in the terminal and distal ileum. The appendix is not identified. Findings suggestive of a 3 cm x 2.3 cm hemangioma at the tip of the right lobe of the liver. Punctate calculus in the left kidney. Electronically Signed: Paxton Hong MD at 10:04 EDT , Service support ,
--- NOTE | 2021-03-04 08:25 | EDS_ITS ---
HPI History of Present Illness Chief Complaint: Abd Pain Narrative Narrative: Patient presents with abdominal pain for the past 3 days, it was gradual onset with decreased stool output. She has nausea but no vomiting. The pain is diffuse throughout the entire abdomen. It is severe. [facility] Medical History (Updated 03/04/21 @ 14:[address] Randy Posadas MD) Abnormal EKG Abnormal uterine bleeding (AUB) Anemia Endometrial polyp Essential hypertension Fibromyalgia Hypokalemia Lupus Multiple lipomas Pulmonary hypertension Submucous uterine fibroid Vitamin D deficiency Home Medications aspirin 325 mg tablet 325 mg PO DAILY 11/08/17 [History Last Taken 07/30/20] meloxicam 15 mg tablet 15 mg PO QDAY 11/08/17 [History Last Taken Unknown] multivitamin 1 tab PO QAM 11/08/17 [History Last Taken Unknown] paroxetine HCl 20 mg tablet 20 mg PO QAM 11/08/17 [History Last Taken Unknown] prasterone (dhea) 25 mg capsule 25 mg PO QDAY 11/08/17 [History Last Taken Unknown] prednisone 10 mg tablet 10 mg PO QDAY 11/08/17 [History Last Taken 07/30/20] mycophenolate mofetil 500 mg PO BID 05/15/19 [History Last Taken 07/30/20] gabapentin 300 mg capsule 300 mg PO 4X/DAY cap 05/20/19 [History Last Taken 07/30/20] oxycodone-acetaminophen 5 mg-325 mg tablet 1 tab PO Q6H PRN tab 05/20/19 [History Last Taken Unknown] ferrous gluconate 324 mg (36 mg iron) tablet 324 mg PO TID tab 05/21/19 [History Last Taken Unknown] fluticasone propionate 50 mcg/actuation nasal spray,suspension 2 spray INTRANASAL DAILY PRN 05/21/19 [History Last Taken Unknown] methocarbamol 750 mg tablet 750 mg PO 4X/DAY PRN tab 05/21/19 [History Last Taken Unknown] albuterol sulfate 1 - 2 puff INHALATION Q4H PRN PRN #1 inhaler 09/29/19 [Rx Last Taken Unknown] esomeprazole magnesium 20 mg capsule,delayed release 20 mg PO DAILY PRN 06/29/20 [History Last Taken Unknown] furosemide 40 mg tablet 80 mg PO DAILY tab 06/29/20 [History Last Taken Unknown] potassium chloride 20 mEq tablet,extended release 40 meq PO DAILY tab 07/24/20 [History Last Taken Unknown] Allergy/AdvReac Type Severity Reaction Status Date / Time acetaminophen Allergy Intermediate unknown Verified 03/04/21 07:55 [From Darvocet-N 100] propoxyphene Allergy Intermediate unknown Verified 03/04/21 07:55 [From Darvocet-N 100] celecoxib [From Celebrex] Allergy Angioedema Verified 03/04/21 07:55 red (food color) Allergy Angioedema Verified 03/04/21 07:55 Family History Father Cancer lung Grandmother Diabetes Brother Hypertension Surgical History History of bilateral tubal ligation History of left heart catheterization (07/30/20) History of nasal surgery History of uterine fibroid (05/16/19) Previous section S/P bunionectomy S/P laparoscopic cholecystectomy S/P right knee surgery Social History (Updated 08/17/20 @ 14:49 by Whitney BARDALES, PA) Smoking Status: Former smoker how long ago did patient quit smokin years ago alcohol intake: never substance use type: does not use caffeine: Yes Type: carbonated beverages and coffee Number of servings: 6 ROS ROS ED ROS Narrative Past medical history: Reviewed, includes fibromyalgia, hypertension, lupus, prior abdominal surgery including section and cholecystectomy. Medications: Reviewed Social history: Noncontributory Review of systems: All systems negative except as indicated General: No fever Eyes: No visual changes ENT: No upper airway congestion, normal voice Neck: No neck pain Cardiovascular: No chest pain Respiratory: No shortness of breath or cough Gastrointestinal: Abdominal pain as in HPI. Decreased BM Genitourinary: No dysuria Musculoskeletal: Denies myalgias no difficulty with ambulation Skin: No rash Neurological: No memory loss, confusion or any focal weakness Psych: No recent behavioral changes Hematologic: No easy bleeding or easy bruising EXAM Physical Exam Narrative Exam Narrative: Physical exam General: Patient appears chronically ill she appears in some distress. Head: Normocephalic, Atraumatic Eyes: Conjunctiva not pale ENT: Slightly dry mucous membranes Neck: Supple, Nontender, No lymphadenopathy Cardiovascular: Regular rate, Regular rhythm Respiratory: No distress, CTA bilaterally Abdomen: Soft, it is quite tender throughout the entire abdomen with some guarding but no rebound. No obvious distention or fluid wave. The pain is not specific to any quadrant and it is diffusely tender. Back: Nontender, Normal Inspection. Negative for: CVA tenderness Extremities: Nontender, No edema Skin: Normal color, No rash Neurological: Alert, Normal Strength, Normal Sensation Psychological: Anxious Const Vital Signs: 03/04/21 07:56 Temperature 99.3 F H Temperature Source Temporal Pulse Rate 99 Respiratory Rate 17 Blood Pressure 130/75 H Blood Pressure Mean 93 Pulse Ox 99 Oxygen Delivery Method Room Air MDM MDM MDM Narrative Medical decision making narrative: CT is consistent with colitis, I discussed with surgery who wanted p.o. contrast, this is concerning for inflammatory bowel disease. I will start the patient on antibiotics, give her steroids. Patient will be admitted. Lab Data Labs: Laboratory Results - last 24 hr 03/04/21 03/04/21 03/04/21 09:00 09:00 09:00 WBC 14.0 H RBC 4.52 Hgb 12.8 Hct 40.3 MCV 89.2 MCH 28.3 MCHC 31.8 L RDW Std Deviation 43.1 RDW Coeff of Kristin 13.1 Plt Count 322 MPV 10.4 Immature Gran % (Auto) 0.500 Neut % (Auto) 88.6 H Lymph % (Auto) 5.7 L [place] % (Auto) 4.8 Eos % (Auto) 0.2 Baso % (Auto) 0.2 Absolute Neuts (auto) 12.4 H Absolute Lymphs (auto) 0.80 L Nucleated RBC % 0 PT 15.7 H INR 1.3 Sodium 139 Potassium 3.1 L Chloride 104 Carbon Dioxide 25.0 Anion Gap 10 BUN 14 Creatinine 0.87 Estim Creat Clear Calc 63.90 Est GFR (MDRD) Af Amer 90 Est GFR (MDRD) Non-Af 75 BUN/Creatinine Ratio 16.1 Glucose 86 Lactic Acid Calcium 8.5 Total Bilirubin 0.70 AST 12 L ALT 21 Alkaline Phosphatase 64 Total Protein 6.9 Albumin 3.1 L Globulin 3.8 Albumin/Globulin Ratio 0.8 L Lipase 48 L Urine Color Urine Clarity Urine pH Ur Specific [place] Urine Protein Urine Glucose (UA) Urine Ketones Urine Occult Blood Urine Nitrite Urine Bilirubin Urine Urobilinogen Ur Leukocyte Esterase Urine RBC Urine WBC Ur Squamous Epith Cells Urine Bacteria Urine Mucus 03/04/21 03/04/21 09:00 11:30 WBC RBC Hgb Hct MCV MCH MCHC RDW Std Deviation RDW Coeff of Kristin Plt Count MPV Immature Gran % (Auto) Neut % (Auto) Lymph % (Auto) [place] % (Auto) Eos % (Auto) Baso % (Auto) Absolute Neuts (auto) Absolute Lymphs (auto) Nucleated RBC % PT INR Sodium Potassium Chloride Carbon Dioxide Anion Gap BUN Creatinine Estim Creat Clear Calc Est GFR (MDRD) Af Amer Est GFR (MDRD) Non-Af BUN/Creatinine Ratio Glucose Lactic Acid 1.0 Calcium Total Bilirubin AST ALT Alkaline Phosphatase Total Protein Albumin Globulin Albumin/Globulin Ratio Lipase Urine Color Yellow Urine Clarity Sl. Cloudy Urine pH 7.0 Ur Specific [place] 1.005 Urine Protein 15 H Urine Glucose (UA) Normal Urine Ketones 50 H Urine Occult Blood 10 H Urine Nitrite Positive H Urine Bilirubin Negative Urine Urobilinogen 1 H Ur Leukocyte Esterase 100 H Urine RBC 0 SEEN Urine WBC 5-10 SEEN Ur Squamous Epith Cells 0-5 SEEN Urine Bacteria 2+ Urine Mucus 0 SEEN Radiography Diagnostic Testing: Radiology Impression Abdomen/Pelvis CT 03/04/21 08:24 IMPRESSION: Findings suggestive of inflammatory changes in the terminal and distal ileum. The appendix is not identified. Findings suggestive of a 3 cm x 2.3 cm hemangioma at the tip of the right lobe of the liver. Punctate calculus in the left kidney. Electronically Signed: Paxton Hong MD at 10:04 EDT , Service support , Abdomen CT 03/04/21 10:43 IMPRESSION: Findings suggestive of inflammatory bowel disease involving the distal and terminal ileum. Findings suggest a phlegmon. Electronically Signed: Paxton Hong MD at 13:26 EDT , Service support , Discharge Plan Triage Chief Complaint: Abd Pain ED Provider: Randy Posadas Dx/Rx/DC Orders Clinical Impression: Colitis Prescriptions: No Action prasterone (dhea) [DHEA] 25 mg capsule 25 mg PO QDAY RF: 0 aspirin 325 mg tablet 325 mg PO DAILY RF: 0 multivitamin tablet 1 tab PO QAM RF: 0 prednisone 10 mg tablet 10 mg PO QDAY RF: 0 meloxicam 15 mg tablet 15 mg PO QDAY RF: 0 paroxetine HCl 20 mg tablet 20 mg PO QAM RF: 0 gabapentin [Neurontin] 300 mg capsule 300 mg PO 4X/DAY RF: 0 oxycodone-acetaminophen 5-325 mg tablet 1 tab PO Q6H PRN (Reason: Pain Score 1-10/10) RF: 0 ferrous gluconate 324 mg (36 mg iron) tablet 324 mg (36 mg iron) tablet 324 mg PO TID RF: 0 methocarbamol 750 mg tablet 750 mg PO 4X/DAY PRN (Reason: Pain/Inflammation) RF: 0 furosemide [Lasix] 40 mg tablet 80 mg PO DAILY RF: 0 esomeprazole magnesium [Nexium 24HR] 20 mg capsule,delayed release(DR/EC) 20 mg PO DAILY PRN (Reason: Heartburn Or Indigestion) RF: 0 fluticasone propionate [Allergy Relief (fluticasone)] 50 mcg/actuation spray,suspension 2 spray INTRANASAL DAILY PRN (Reason: Allergies) RF: 0 mycophenolate mofetil 500 MG tablet 500 mg PO BID RF: 0 albuterol sulfate 1 INHALER inhaler 1 - 2 puff INHALATION Q4H PRN PRN (Reason: Wheezing) Qty: 1 RF: 0 potassium chloride 20 mEq tablet extended release 40 meq PO DAILY RF: 0 Primary Care Provider: Manny Barajas Referrals: Manny Barajas MD [Primary Care Provider] - 2 Days Disposition Disposition: Acute Care Hospital [facility]
[2021-03-04] MEDS: Morphine 4 MG/ML Syringe IV (09:07)
[2021-03-04] MEDS: Ondansetron 4 MG/2 ML Vial IV (09:08)
[2021-03-04 09:12] LABS: Absolute Neutrophil Count 12.4 X10^3/uL (2.0-7.7); Basophil# 0.03 X10^3/uL; Basophil% 0.2 % (0-1); Eosinophil# 0.03 X10^3/uL; Eosinophils% 0.2 % (0-5); Hematocrit 40.3 % (37-47); Hemoglobin 12.8 g/dL (12.0-15.0); Lymphocyte % 5.7 % (19-41); Mean Corp Hgb Conc 31.8 g/dL (32-36); Mean Corpuscular Hgb 28.3 pg (27.0-32.0); Mean Corpuscular Volume 89.2 fL (81-99); Mean Platelet Vol. 10.4 fl (6.2-12.0); Monocyte# 0.67 X10^3/uL; Monocyte% 4.8 % (0-10); NRBC Flagged by Analyzer 0 % (0-5); Neutrophil # 12.41 X10^3/uL (2.7-7.7); Neutrophil % 88.6 % (47-70); Platelet Count 322 K/mm3 (150-450); RBC Distribution Width CV 13.1 % (11.6-14.6); RBC Distribution Width SD 43.1 fl (35.1-43.9); Red Blood Count 4.52 M/mm3 (4.2-5.4)
[2021-03-04 09:24] LABS: ALB/GLOB Ratio 0.8 RATIO (0.9-2.4); AST(SGOT) 12 U/L (15-37); Alanine Aminotransfer ALT/SGPT 21 U/L (13-56); Albumin, Serum 3.1 g/dL (3.2-5.0); Alkaline Phosphatase 64 U/L (45-117); Anion Gap 10 (5-15); BUN 14 mg/dL (7-18); BUN/Creat Ratio 16.1 RATIO (10-20); Calcium,Total 8.5 mg/dL (8.5-10.1); Chloride 104 mmol/L (98-107); Creatinine, Serum 0.87 mg/dL (0.55-1.02); EST Glomerular Filtration Rate 75 mL/min (>60); Est Glom Filt Rate - Afr Amer 90 mL/min (>60); Globulin 3.8 g/dL (2.2-4.2); Glucose 86 mg/dL (74-106); Lipase 48 U/L (73-393); Potassium 3.1 mmol/L (3.5-5.1); Protein, Total 6.9 g/dL (6.4-8.2); Sodium Level 139 mmol/L (136-145)
[2021-03-04 09:26] LABS: International Normalized Ratio 1.3; Prothrombin Time (Protime)PT. 15.7 SECONDS (11.7-14.9)
--- NOTE | 2021-03-04 10:43 | CT_ITS ---
STUDY: CT ABDOMEN AND PELVIS WITHOUT CONTRAST REASON FOR EXAM: Female, 45 years old. Abdominal pain RADIATION DOSAGE (If Supplied By Facility): CTDIvol = ( 14.51 ) mGy, DLP = ( 724.84 ) mGycm TECHNIQUE: Transaxial images were obtained from the dome of the diaphragm to the symphysis pubis without oral contrast, and without intravenous contrast. Sagittal and coronal images were reconstructed. Individualized dose optimization techniques were used for this CT. COMPARISON: Comparison is made with prior examination done earlier in the day. FINDINGS: The visualized lung bases are unremarkable. The visualized portions of the heart are within normal limits. The previously seen hypodensity in the inferior tip of the right lobe of the liver is now isodense with the liver suggestive of a benign hemangioma. Normal gallbladder and extrahepatic biliary system. Normal spleen. Normal pancreas. Normal bilateral adrenal glands. Normal right kidney. Normal left kidney. Normal visualized stomach. Abnormal appearance with soft tissue density and narrowing of the distal and terminal ileum. Inflammatory bowel disease should be ruled out. Normal colon. There is non-visualization of the appendix. Normal abdominal aorta. Normal inferior vena cava. Normal retroperitoneum. Normal urinary bladder. Normal abdominal wall. Normal osseous structures. CT/Abdomen/Pel W ORAL Cont Only IMPRESSION: Findings suggestive of inflammatory bowel disease involving the distal and terminal ileum. Findings suggest a phlegmon. Electronically Signed: Paxton Hong MD at 13:26 EDT , Service support ,
[2021-03-04 11:35] LABS: Mucous, Urine 0 SEEN /hpf (<or=2+); Red Blood Cells-Urine 0 SEEN /hpf (0-5)
[2021-03-04 11:37] LABS: Color, Urine Yellow (Yellow); Glucose, Dipstick Normal (Normal); Ketone-Dipstick 50 mg/dl (Negative); Leukocyte Esterase-Dipstick 100 /ul (Negative); Nitrite-Dipstick Positive (Negative); Occult Blood-Urine 10 /ul (Negative); Protein-Dipstick 15 mg/dl (Negative); Specific Gravity, Urine 1.005 (1.002-1.030); Urine Bilirubin Dipstick Negative (Negative); Urine Clarity Sl. Cloudy (Clear); Urine Urobilinogen 1 mg/dl (Normal)
[2021-03-04 11:44] LABS: Bacteria 2+ /hpf (None Seen); Squamous Epithelial Cells - UA 0-5 SEEN /hpf (5-10); White Blood Cells 5-10 SEEN /hpf (0-5)
[2021-03-04 15:00] VITALS: BP 121/78; PULSE 101; RESP 18; O2SAT 100
[2021-03-04] MEDS: MethylPREDNISolone 125 MG/2 ML Vial IV (15:10)
[2021-03-04] MEDS: metroNIDAZOLE 500 MG/100 ML BAG 100 MG IV (15:10)
[2021-03-04] MEDS: HYDROmorphone 0.5 MG/0.5 ML SYRINGE IV ×2 (15:10→21:27)
[2021-03-04 15:15] VITALS: BP 121/78; PULSE 104; RESP 18; TEMP 37.7; O2SAT 100
[2021-03-04 15:49] VITALS: BMI 35.5
[2021-03-04 15:51] VITALS: BP 120/80; PULSE 105; RESP 18; TEMP 38; O2SAT 98
--- NOTE | 2021-03-04 15:58 | EX.PCM.CON.S ---
Assessment & Plan Assessment/Plan (1) Ileitis: PLAN: Continue sips/ice chips, IVF, IV abx--will plan to advance to clears when pain is improved. d/w pt that would recommend colonoscopy in the future to take a look at the terminal ileum once inflammation has improved. Cherise Horowitz M.D. Pager: [phone] [facility] [address] [place] [address], [facility] [address] [place] [address] Office: [phone] HPI Consult Data Date of Consult: 03/08/21 HPI Narrative HPI Narrative: ZAC LOCKHART, is a 45 F who presents to the ER due to diffuse abdominal pain. Patient states the pain started Monday after lunch continued and patient also admits to having a fever during this time. Patient was able to eat small amounts of chicken noodle soup and an egg and some toast however this time. Patient denies any vomiting did have some nausea due to the increased pain. Patient does also have a history of fibromyalgia as well as lupus. Patient states that her fibromyalgia typically affects more of her neck and not really her abdomen. Patient states maybe about 10 years ago she did have a colonoscopy at [facility] states it was negative unsure who she saw for this. Patient states her last normal bowel movement was on Monday and she has been having a little bit of diarrhea Monday and today and has had some bleeding possibly from hemorrhoids with the stool. Patient CT abdomen pelvis was done which showed some inflammation at the terminal ileum and patient a white blood cell count on admit of 14. Patient is currently on IV antibiotics [facility] Medical History Abnormal EKG Abnormal uterine bleeding (AUB) Anemia Depression Endometrial polyp Essential hypertension Fibromyalgia Hypokalemia Kidney stones Lupus Multiple lipomas Pulmonary hypertension Submucous uterine fibroid Vitamin D deficiency Home Medications multivitamin 1 tab PO DAILY 11/08/17 [History Last Taken 03/03/21] paroxetine HCl 20 mg tablet 20 mg PO DAILY 11/08/17 [History Last Taken 03/03/21] prasterone (dhea) 25 mg capsule 25 mg PO DAILY 11/08/17 [History Last Taken 03/03/21] mycophenolate mofetil 500 mg PO BID 05/15/19 [History Last Taken 03/03/21] gabapentin 300 mg capsule 300 mg PO 4X/DAY cap 05/20/19 [History Last Taken 03/03/21] oxycodone-acetaminophen 5 mg-325 mg tablet 1 tab PO Q6H PRN tab 05/20/19 [History Last Taken 03/02/21] fluticasone propionate 50 mcg/actuation nasal spray,suspension 2 spray INTRANASAL DAILY PRN 05/21/19 [History Last Taken Unknown] methocarbamol 750 mg tablet 750 mg PO 4X/DAY PRN tab 05/21/19 [History Last Taken 03/03/21] albuterol sulfate 1 - 2 puff INHALATION Q4H PRN PRN #1 inhaler 09/29/19 [Rx Last Taken Unknown] esomeprazole magnesium 20 mg capsule,delayed release 20 mg PO DAILY PRN 06/29/20 [History Last Taken Unknown] furosemide 40 mg tablet 80 mg PO DAILY tab 06/29/20 [History Last Taken 03/03/21] potassium chloride 20 mEq tablet,extended release 40 meq PO DAILY tab 07/24/20 [History Last Taken 03/03/21] cholecalciferol (vitamin D3) 50 mcg PO DAILY 03/04/21 [History Last Taken 03/03/21] ferrous gluconate 324 mg PO BID 03/04/21 [History Last Taken 03/03/21] ciprofloxacin HCl [Cipro] 500 mg PO BID #10 tab 03/07/21 [Rx Last Taken Unknown] metronidazole [Flagyl] 500 mg PO TID #15 tab 03/07/21 [Rx Last Taken Unknown] prednisone See Taper PO DAILY #30 tab 03/07/21 [Rx Last Taken Unknown] Allergy/AdvReac Type Severity Reaction Status Date / Time acetaminophen Allergy Intermediate unknown Verified 03/04/21 07:55 [From Darvocet-N 100] propoxyphene Allergy Intermediate unknown Verified 03/04/21 07:55 [From Darvocet-N 100] celecoxib [From Celebrex] Allergy Angioedema Verified 03/04/21 07:55 red (food color) Allergy Angioedema Verified 03/04/21 07:55 Family History Father Cancer lung Grandmother Diabetes Brother Hypertension Surgical History History of bilateral tubal ligation History of left heart catheterization (07/30/20) History of nasal surgery History of uterine fibroid (05/16/19) Previous section S/P bunionectomy S/P laparoscopic cholecystectomy S/P right knee surgery Social History Smoking Status: Former smoker how long ago did patient quit smokin years ago alcohol intake: never substance use type: does not use caffeine: Yes Type: carbonated beverages and coffee Number of servings: 6 ROS Constitutional Constitutional: Reports anorexia, fever(s) and weakness; Denies chills Eyes Eyes: Denies blurry vision ENT HEENT: Denies abnormal hearing Cardiovascular Cardiovascular: Denies chest pain Respiratory/Chest Respiratory/Chest: Denies cough Gastrointestinal Gastrointestinal: Reports abdominal pain, constipation, diarrhea, hematochezia and nausea; Denies melena or vomiting Genitourinary Genitourinary: Reports dysuria Musculoskeletal Musculoskeletal: Reports back pain and joint pain Neurologic Neurologic: Denies abnormal speech Psychiatric Psychiatric: Reports anxiety and depression; Denies suicidal ideation Endocrine Endocrinology: Denies cold intolerance Hematologic/Lymphatic Hematologic/Lymphatic: Denies easy bleeding or easy bruising Allergic/Immunologic Allergic/Immunologic: Denies asthma Physical Exam Const alert and oriented x3 General Appearance: cooperative HEENT normocephalic and head/scalp atraumatic Resp normal respiratory effort Cardio regular rate GI soft to palpation and non-distended Palpation: tender other (diffuse, greatest in RLQ/mid abd, equivol rebound, voluntary guarding); Negative for guarding Extremity no clubbing, cyanosis or edema Neuro CN's II-XII intact bilaterally Psych mental status grossly normal Lab / Micro Data Result Diagrams: 03/07/21 05:57 03/07/21 05:57 Labs: Laboratory Results - last 24 hr 03/04/21 09:00: WBC 14.0 H, RBC 4.52, Hgb 12.8, Hct 40.3, MCV 89.2, MCH 28.3, MCHC 31.8 L, RDW Std Deviation 43.1, RDW Coeff of Kristin 13.1, Plt Count 322, MPV 10.4, Immature Gran % (Auto) 0.500, Neut % (Auto) 88.6 H, Lymph % (Auto) 5.7 L, [place] % (Auto) 4.8, Eos % (Auto) 0.2, Baso % (Auto) 0.2, Absolute Neuts (auto) 12.4 H, Absolute Lymphs (auto) 0.80 L, Nucleated RBC % 0 03/04/21 09:00: PT 15.7 H, INR 1.3 03/04/21 09:00: Sodium 139, Potassium 3.1 L, Chloride 104, Carbon Dioxide 25.0, Anion Gap 10, BUN 14, Creatinine 0.87, Estim Creat Clear Calc 63.90, Est GFR (MDRD) Af Amer 90, Est GFR (MDRD) Non-Af 75, BUN/Creatinine Ratio 16.1, Glucose 86, Calcium 8.5, Total Bilirubin 0.70, AST 12 L, ALT 21, Alkaline Phosphatase 64, Total Protein 6.9, Albumin 3.1 L, Globulin 3.8, Albumin/Globulin Ratio 0.8 L, Lipase 48 L 03/04/21 09:00: Lactic Acid 1.0 03/04/21 11:30: Urine Color Yellow, Urine Clarity Sl. Cloudy, Urine pH 7.0, Ur Specific [place] 1.005, Urine Protein 15 H, Urine Glucose (UA) Normal, Urine Ketones 50 H, Urine Occult Blood 10 H, Urine Nitrite Positive H, Urine Bilirubin Negative, Urine Urobilinogen 1 H, Ur Leukocyte Esterase 100 H, Urine RBC 0 SEEN, Urine WBC 5-10 SEEN, Ur Squamous Epith Cells 0-5 SEEN, Urine Bacteria 2+, Urine Mucus 0 SEEN Radiology Impression Abdomen/Pelvis CT 03/04/21 08:24 IMPRESSION: Findings suggestive of inflammatory changes in the terminal and distal ileum. The appendix is not identified. Findings suggestive of a 3 cm x 2.3 cm hemangioma at the tip of the right lobe of the liver. Punctate calculus in the left kidney. Electronically Signed: Paxton Hong MD at 10:04 EDT , Service support , Abdomen CT 03/04/21 10:43 IMPRESSION: Findings suggestive of inflammatory bowel disease involving the distal and terminal ileum. Findings suggest a phlegmon. Electronically Signed: Paxton Hong MD at 13:26 EDT , Service support , Charges/Coding Visit Charges Inpatient E&M: 32803 Init Hosp L3
--- NOTE | 2021-03-04 16:30 | HP.PCM.HOS_ITS ---
HPI - General General Date of Admission: 03/04/21 Date of Service: 03/04/21 Chief Complaint: Abdominal pain HPI Narrative ZAC LOCKHART, is a 45 F who presented to the emergency department [facility] on 03/04/2021 with persistent abdominal pain. She states her symptoms started at 1 PM on Monday afternoon and she also was noted to have a fever at that time of 102 degrees. She states she took some Tylenol and her fe arden went away but her abdominal pain persisted. She states it is gradually gotten worse. She has had decreased stool output and has nausea but no vomiting. She states the pain is diffuse and nothing makes it better or worse. She states initially thought she was just constipated so she took extra stool softeners. She also had a bout of hematochezia while in the emergency department after drinking her contrast for her CT. She is not had any issues with blood or dark tarry stools at home. She states she is had a colonoscopy at some point time but was unable to remember when, where, or who performed the scope. Show a temperature of 100 degrees, she is tachycardic with a heart rate of 100-110. Her blood pressures are normotensive, her respiratory rate is normal and she satting 98 to 100% on room air. Her CBC shows a leukocytosis with a white count of 14 but is otherwise normal. Her BMP shows hypokalemia with potassium of 3.1, LFTs are within normal limits, alk phos is normal. Her lactic acid was 1.0. Her lipase was 48. A UA was done and shows nitrites, leuk esterase, white cells and 2+ bacteria. Culture was sent. A CT of her abdomen and pelvis was performed and showed distal and terminal ileitis with possible phlegmon. Dr. Rizvi was notified of the case by the emergency department. She was started on Cipro and Flagyl and given 1 dose of 125 mg of Solu-Medrol. She will be admitted to the medical surgical floor for further care. [facility] Medical History Abnormal EKG Abnormal uterine bleeding (AUB) Anemia Depression Endometrial polyp Essential hypertension Fibromyalgia Hypokalemia Kidney stones Lupus Multiple lipomas Pulmonary hypertension Submucous uterine fibroid Vitamin D deficiency Home Medications aspirin 325 mg tablet 325 mg PO DAILY 11/08/17 [History Last Taken 03/03/21] meloxicam 15 mg tablet 15 mg PO DAILY 11/08/17 [History Last Taken 03/03/21] multivitamin 1 tab PO DAILY 11/08/17 [History Last Taken 03/03/21] paroxetine HCl 20 mg tablet 20 mg PO DAILY 11/08/17 [History Last Taken 1] prasterone (dhea) 25 mg capsule 25 mg PO DAILY 11/08/17 [History Last Taken 03/03/21] prednisone 10 mg tablet 10 mg PO DAILY 11/08/17 [History Last Taken 03/03/21] mycophenolate mofetil 500 mg PO BID 05/15/19 [History Last Taken 03/03/21] gabapentin 300 mg capsule 300 mg PO 4X/DAY cap 05/20/19 [History Last Taken 03/03/21] oxycodone-acetaminophen 5 mg-325 mg tablet 1 tab PO Q6H PRN tab 05/20/19 [History Last Taken 03/02/21] fluticasone propionate 50 mcg/actuation nasal spray,suspension 2 spray INTRANASAL DAILY PRN 05/21/19 [History Last Taken Unknown] methocarbamol 750 mg tablet 750 mg PO 4X/DAY PRN tab 05/21/19 [History Last Taken 03/03/21] albuterol sulfate 1 - 2 puff INHALATION Q4H PRN PRN #1 inhaler 09/29/19 [Rx Last Taken Unknown] esomeprazole magnesium 20 mg capsule,delayed release 20 mg PO DAILY PRN 06/29/20 [History Last Taken Unknown] furosemide 40 mg tablet 80 mg PO DAILY tab 06/29/20 [History Last Taken 03/03/21] potassium chloride 20 mEq tablet,extended release 40 meq PO DAILY tab 07/24/20 [History Last Taken 03/03/21] cholecalciferol (vitamin D3) 50 mcg PO DAILY 03/04/21 [History Last Taken 03/03/21] ferrous gluconate 324 mg PO BID 03/04/21 [History Last Taken 03/03/21] Allergy/AdvReac Type Severity Reaction Status Date / Time acetaminophen Allergy Intermediate unknown Verified 03/04/21 07:55 [From Darvocet-N 100] propoxyphene Allergy Intermediate unknown Verified 03/04/21 07:55 [From Darvocet-N 100] celecoxib [From Celebrex] Allergy Angioedema Verified 03/04/21 07:55 red (food color) Allergy Angioedema Verified 03/04/21 07:55 Family History Father Cancer lung Grandmother Diabetes Brother Hypertension Surgical History History of bilateral tubal ligation History of left heart catheterization (07/30/20) History of nasal surgery History of uterine fibroid (05/16/19) Previous section S/P bunionectomy S/P laparoscopic cholecystectomy S/P right knee surgery Social History Smoking Status: Former smoker how long ago did patient quit smokin years ago alcohol intake: never substance use type: does not use caffeine: Yes Type: carbonated beverages and coffee Number of servings: 6 ROS Review of Systems ROS Unobtainable: Denies due to encephalopathy, due to endotracheal tube, due to mental condition, due to mental status or other Constitutional Constitutional: Reports anorexia, fever(s), malaise and weakness; Denies change in weight, chills, fatigue, night sweats or other Eyes Eyes: Denies blurry vision, change in eye color, change in vision, discharge from eye(s), double vision, erythema, eye pain, loss of vision or other ENT HEENT: Denies abnormal hearing, dysphagia, ear pain, epistaxis, headache(s), hearing loss, nasal congestion, nasal discharge, post nasal drip, sinus pressure, sore throat or other Cardiovascular Cardiovascular: Denies chest pain, claudication, dyspnea on exertion, edema, lightheadedness, orthopnea, palpitations, paroxysmal nocturnal dyspnea, rapid heart rate, syncope or other Respiratory/Chest Respiratory/Chest: Denies cough, dyspnea, excessive phlegm production, hemoptysis, productive cough, shortness of breath at rest, shortness of breath with exertion, wheezing or other Gastrointestinal Gastrointestinal: Reports abdominal pain, constipation, diarrhea, hematochezia and nausea; Denies coffee ground emesis, dyspepsia, hematemesis, loose stools, melena or vomiting Genitourinary Genitourinary: Reports burning urination and dysuria; Denies difficulty urinating, hematuria, nocturia, urinary frequency, urinary hesitancy, urinary incontinence, urinary urgency or other Musculoskeletal Musculoskeletal: Reports arthralgias, back pain, joint pain, joint stiffness, joint swelling, myalgias and neck pain Neurologic Neurologic: Denies abnormal gait, abnormal speech, confusion, disequilibrium, dizziness, focal weakness, headache(s), numbness, paresthesias, seizure-like activity, seizures, syncope, tingling, tremor(s) or other Psychiatric Psychiatric: Reports anxiety and depression; Denies homicidal ideation, suicidal ideation or other Endocrine Endocrinology: Denies change in body appearance, cold intolerance, excessive sweating, heat intolerance, polydipsia, polyuria or other Hematologic/Lymphatic Hematologic/Lymphatic: Denies anemia, easy bleeding, easy bruising, lymphadenopathy or other Allergic/Immunologic Allergic/Immunologic: Denies rhinitis, hives, eczemia, asthma or other Vital Signs Vital Signs Vital Signs: 03/04/21 07:56 03/04/21 15:00 03/04/21 15:15 Temperature 99.3 F H 100 F H Temperature Source Temporal Oral Pulse Rate 99 101 H 104 H Respiratory Rate 17 18 18 Respiratory Effort Respiratory Depth Respiratory Pattern Blood Pressure 130/75 H 121/78 H 121/78 H Blood Pressure Mean 93 92 92 Blood Pressure Source Blood Pressure Position Blood Pressure Location Pulse Ox 99 100 100 Oxygen Delivery Method Room Air Room Air Room Air 03/04/21 15:51 Temperature 100.4 F H Temperature Source Oral Pulse Rate 105 H Respiratory Rate 18 Respiratory Effort Normal Respiratory Depth Normal Respiratory Pattern Normal Blood Pressure 120/80 Blood Pressure Mean 93 Blood Pressure Source Monitor Blood Pressure Position Semi-Fowlers Blood Pressure Location Left Arm Pulse Ox 98 Oxygen Delivery Method Room Air Weight Weight: 88.1 kg Body Mass Index (BMI) 35.5 Physical Exam Const alert, oriented x3 and no apparent distress Constitutional Narrative: White, obese, middle-aged female lying in bed, appears nontoxic but uncomfortable General Appearance: cooperative HEENT normocephalic, head/scalp atraumatic and hearing grossly normal bilaterally HEENT Narrative: Dry mucous membranes, no thrush, Mallampati 3 Eyes PERRL, EOMs intact bilaterally and conjunctivae normal Neck no lymphadenopathy, supple, no JVD and no carotid bruits Neck Narrative: Trachea midline Resp normal respiratory effort, no retractions, no use of accessory muscles and clear to auscultation bilaterally Auscultation: Negative for crackles, rales, rhonchi or wheezes Cardio regular rate, regular rhythm, S1 normal heart sound, S2 normal heart sound, no murmurs, no rub, no gallops, no clicks and no JVD GI normal to inspection, nondistended, normoactive bowel sounds, soft to palpation and non-distended Palpation: tender other (Diffuse) and guarding other (Diffuse) Extremity normal to inspection, full ROM and no clubbing, cyanosis or edema Peripheral Pulses: Yes pulses 2+ throughout Skin no rashes or lesions noted, no wounds, skin turgor normal, no jaundice, no petechiae and no mottling Neuro oriented x3, CN's II-XII intact bilaterally, moves all extremities and no focal motor deficits Sensorium / Orientation: awake, alert, oriented to person, oriented to place and oriented to time Speech: speech normal Psych Psych Narrative: Anxious with flat affect Mood & Affect: anxious Results Lab / Micro Data Attestation: I reviewed the patient's lab results. Result Diagrams: 03/04/21 09:00 03/04/21 09:00 Labs: Laboratory Results - last 24 hr 03/04/21 09:00: WBC 14.0 H, RBC 4.52, Hgb 12.8, Hct 40.3, MCV 89.2, MCH 28.3, MCHC 31.8 L, RDW Std Deviation 43.1, RDW Coeff of Kristin 13.1, Plt Count 322, MPV 10.4, Immature Gran % (Auto) 0.500, Neut % (Auto) 88.6 H, Lymph % (Auto) 5.7 L, [place] % (Auto) 4.8, Eos % (Auto) 0.2, Baso % (Auto) 0.2, Absolute Neuts (auto) 12.4 H, Absolute Lymphs (auto) 0.80 L, Nucleated RBC % 0 03/04/21 09:00: PT 15.7 H, INR 1.3 03/04/21 09:00: Sodium 139, Potassium 3.1 L, Chloride 104, Carbon Dioxide 25.0, Anion Gap 10, BUN 14, Creatinine 0.87, Estim Creat Clear Calc 63.90, Est GFR (MDRD) Af Amer 90, Est GFR (MDRD) Non-Af 75, BUN/Creatinine Ratio 16.1, Glucose 86, Calcium 8.5, Total Bilirubin 0.70, AST 12 L, ALT 21, Alkaline Phosphatase 64, Total Protein 6.9, Albumin 3.1 L, Globulin 3.8, Albumin/Globulin Ratio 0.8 L , Lipase 48 L 03/04/21 09:00: Lactic Acid 1.0 03/04/21 11:30: Urine Color Yellow, Urine Clarity Sl. Cloudy, Urine pH 7.0, Ur Specific [place] 1.005, Urine Protein 15 H, Urine Glucose (UA) Normal, Urine Ketones 50 H, Urine Occult Blood 10 H, Urine Nitrite Positive H, Urine Bilirubin Negative, Urine Urobilinogen 1 H, Ur Leukocyte Esterase 100 H, Urine RBC 0 SEEN, Urine WBC 5-10 SEEN, Ur Squamous Epith Cells 0-5 SEEN, Urine Bacteria 2+, Urine Mucus 0 SEEN Radiology Impression Abdomen/Pelvis CT 03/04/21 08:24 IMPRESSION: Findings suggestive of inflammatory changes in the terminal and distal ileum. The appendix is not identified. Findings suggestive of a 3 cm x 2.3 cm hemangioma at the tip of the right lobe of the liver. Punctate calculus in the left kidney. Electronically Signed: Paxton Hong MD at 10:04 EDT , Service support , Abdomen CT 03/04/21 10:43 IMPRESSION: Findings suggestive of inflammatory bowel disease involving the distal and terminal ileum. Findings suggest a phlegmon. Electronically Signed: Paxton Hong MD at 13:26 EDT , Service support , Assessment & Plan Assessment/Plan (1) Colitis: (2) Leukocytosis: (3) Hypokalemia: PLAN: Sepsis secondary to acute ileitis of the distal and terminal ileum -Patient febrile with tachycardia and low-grade temp -CT done on 03/04/2021 notes that this is suggestive of inflammatory bowel disease and findings are suggestive of possible phlegmon -Case discussed by ER with Dr. Rizvi--> consultation to general surgery -Start Cipro/Flagyl -Start Solu-Medrol 60 mg daily -Patient takes prednisone grams daily at baseline -Hold -IV fluids -Hold home Lasix for now -Pain medications -Clear liquid diet -Bowel regimen -will need outpatient colonoscopy with biopsies once clinically improved Hematochezia -Repeat hemoglobin this evening -General surgery is following -Hold home aspirin -Hold meloxicam Leukocytosis -See above -Repeat CBC in a.m. Hypokalemia -Patient is on chronic potassium supplementation at home therefore this is likely acute on chronic -We will give 40 mEq today -Repeat BMP in a.m. Possible UTI -Urinalysis is suggestive of UTI -Urine culture pending -Empiric Cipro Asthma/allergies -Continue home inhalers Lupus -Hold home steroids -Continue CellCept Fibromyalgia -Continue home medication GERD -Continue PPI Depression -Continue paroxetine Obesity -BMI 35.5 -Would recommend weight loss -Complicates treatment, prognosis, outcomes DVT prophylaxis -Heparin 3 times daily -Will discontinue if hemoglobin drops -SCDs CODE STATUS -Full code Charges/Coding Visit Charges Inpatient E&M: 43396 Init Hosp L3
[2021-03-04] MEDS: 0.9% Normal Saline 1,000 ML 125 ML IV (16:51)
[2021-03-04] MEDS: Potassium Chloride Oral Tablet 20 MEQ PO (16:55)
[2021-03-04] MEDS: Ferrous Gluconate 324 MG Tablet PO (16:56)
[2021-03-04] MEDS: Gabapentin 300 MG Capsule PO ×2 (16:56→21:26)
[2021-03-04 17:17] LABS: Hematocrit 37.2 % (37-47); Hemoglobin 12.1 g/dL (12.0-15.0)
[2021-03-04] MEDS: Ciprofloxacin 400 MG/200 ML BAG 200 MG IV (17:28)
[2021-03-04 21:14] VITALS: BP 109/60; PULSE 66; RESP 16; TEMP 37.2; O2SAT 94
[2021-03-04] MEDS: Heparin Injection (Vial) 5,000 UNIT/ML VIAL 5000 UNIT SC (21:27)
[2021-03-04] MEDS: Mycophenolate Mofetil 250 MG Capsule 500 MG PO (21:27)
[2021-03-05] MEDS: 0.9% Normal Saline 1,000 ML 125 ML IV ×3 (01:44→19:57)
--- NOTE | 2021-03-05 02:17 | NURSING ---
Clarified acetaminophen allergy with pt. She states it is the red dye in the lettering on tylenol that she is allergic to, not the acetaminophen itself. Verified with pharmacy that we have acetaminophen tablets without lettering or red dye, pharmacist states this dose comes in 500mg tablets. Obtained order from hospitalist for this medication.
[2021-03-05 02:29] VITALS: BP 104/66; PULSE 65; RESP 15; TEMP 36.5; O2SAT 99
[2021-03-05] MEDS: Acetaminophen 500 MG Tablet PO (02:29)
[2021-03-05] MEDS: Heparin Injection (Vial) 5,000 UNIT/ML VIAL 5000 UNIT SC ×3 (06:44→22:45)
[2021-03-05 06:49] LABS: Absolute Lymphocyte Count 0.41 X10^3/uL (0.83-4.51); Absolute Neutrophil Count 11.9 X10^3/uL (2.0-7.7); Basophil# 0.01 X10^3/uL; Basophil% 0.1 % (0-1); Hematocrit 37.3 % (37-47); Hemoglobin 11.8 g/dL (12.0-15.0); Lymphocyte # 0.41 X10^3/ul (0.83-4.51); Lymphocyte % 3.3 % (19-41); Mean Corp Hgb Conc 31.6 g/dL (32-36); Mean Corpuscular Hgb 28.2 pg (27.0-32.0); Mean Corpuscular Volume 89.2 fL (81-99); Mean Platelet Vol. 10.7 fl (6.2-12.0); Monocyte# 0.21 X10^3/uL; Monocyte% 1.7 % (0-10); NRBC Flagged by Analyzer 0 % (0-5); Neutrophil # 11.88 X10^3/uL (2.7-7.7); Neutrophil % 94.3 % (47-70); POSITIVE DIFFERENTIAL YES; Platelet Count 295 K/mm3 (150-450); RBC Distribution Width CV 13.1 % (11.6-14.6); Red Blood Count 4.18 M/mm3 (4.2-5.4); White Blood Count 12.6 K/mm3 (4.4-11.0)
[2021-03-05 06:55] LABS: Differential Indicated SCAN CRITERIA MET
[2021-03-05 07:13] LABS: Differential Comment SCANNED
[2021-03-05 07:28] LABS: ALB/GLOB Ratio 0.7 RATIO (0.9-2.4); AST(SGOT) 22 U/L (15-37); Alanine Aminotransfer ALT/SGPT 44 U/L (13-56); Albumin, Serum 2.6 g/dL (3.2-5.0); Alkaline Phosphatase 134 U/L (45-117); Anion Gap 11 (5-15); BUN 11 mg/dL (7-18); BUN/Creat Ratio 16.1 RATIO (10-20); Calcium,Total 7.8 mg/dL (8.5-10.1); Chloride 106 mmol/L (98-107); Creatinine, Serum 0.68 mg/dL (0.55-1.02); EST Glomerular Filtration Rate 98 mL/min (>60); Est Glom Filt Rate - Afr Amer 119 mL/min (>60); Estimated Creatinine Clearance 81.76 ml/min; Globulin 3.8 g/dL (2.2-4.2); Glucose 127 mg/dL (74-106); Magnesium 2.3 mg/dL (1.6-2.6); Potassium 3.7 mmol/L (3.5-5.1); Protein, Total 6.4 g/dL (6.4-8.2); Sodium Level 139 mmol/L (136-145); Thyroid Stim Hormone (TSH) 0.31 uIU/mL (0.358-3.74)
[2021-03-05 07:44] LABS: Phosphorus 2.6 mg/dL (2.5-4.9)
[2021-03-05 08:04] VITALS: BP 102/57; PULSE 54; RESP 16; TEMP 36.4; O2SAT 100
[2021-03-05] MEDS: Cholecalciferol (VIT D3) 25 MCG TABLET (1,000 UNITS) 50 MCG PO (08:10)
[2021-03-05] MEDS: Gabapentin 300 MG Capsule PO ×4 (08:10→20:59)
[2021-03-05] MEDS: Potassium Chloride Oral Tablet 20 MEQ 40 MEQ PO (08:10)
[2021-03-05] MEDS: Mycophenolate Mofetil 250 MG Capsule 500 MG PO ×2 (08:10→20:59)
--- NOTE | 2021-03-05 09:34 | PCM.PN.SRG ---
Subjective Subjective Patient states abdominal pain is improved. But still there tolerating clears Objective Data Objective Data Vital Signs: Vital Signs Temp Pulse Resp BP Pulse Ox 97.5 F L 54 L 16 102/57 L 100 03/05/21 08:04 03/05/21 08:04 03/05/21 08:04 03/05/21 08:04 03/05/21 08:04 Oxygen Delivery Method Room Air Weight: 194 lb 3.636 oz Body Mass Index (BMI) 35.5 Intake & Output: Intake and Output for Last 24 Hours 03/03/21 03/04/21 03/05/21 23:59 23:59 23:59 Intake Total 1279.17 / 1279.17 1700 / 1700 Output Total 200 / 200 Balance 1079.17 / 1079.17 1700 / 1700 Lab / Micro Data Result Diagrams: 03/05/21 05:55 03/05/21 05:55 Labs: Laboratory Results - last 24 hr 03/04/21 11:30: Urine Color Yellow, Urine Clarity Sl. Cloudy, Urine pH 7.0, Ur Specific [place] 1.005, Urine Protein 15 H, Urine Glucose (UA) Normal, Urine Ketones 50 H, Urine Occult Blood 10 H, Urine Nitrite Positive H, Urine Bilirubin Negative, Urine Urobilinogen 1 H, Ur Leukocyte Esterase 100 H, Urine RBC 0 SEEN, Urine WBC 5-10 SEEN, Ur Squamous Epith Cells 0-5 SEEN, Urine Bacteria 2+, Urine Mucus 0 SEEN 03/04/21 17:00: Hgb 12.1, Hct 37.2 03/05/21 05:55: WBC 12.6 H, RBC 4.18 L, Hgb 11.8 L, Hct 37.3, MCV 89.2, MCH 28.2, MCHC 31.6 L, RDW Std Deviation 43.0, RDW Coeff of Kristin 13.1, Plt Count 295, MPV 10.7, Immature Gran % (Auto) 0.600, Neut % (Auto) 94.3 H, Lymph % (Auto) 3.3 L, [place] % (Auto) 1.7, Eos % (Auto) 0.0, Baso % (Auto) 0.1, Absolute Neuts (auto) 11.9 H, Absolute Lymphs (auto) 0.41 L, Nucleated RBC % 0, Differential Comment SCANNED 03/05/21 05:55: Sodium 139, Potassium 3.7, Chloride 106, Carbon Dioxide 22.0, Anion Gap 11, BUN 11, Creatinine 0.68, Estim Creat Clear Calc 81.76, Est GFR (MDRD) Af Amer 119, Est GFR (MDRD) Non-Af 98, BUN/Creatinine Ratio 16.1, Glucose 127 H, Calcium 7.8 L, Magnesium 2.3, Total Bilirubin 0.40, AST 22, ALT 44, Alkaline Phosphatase 134 H, Total Protein 6.4, Albumin 2.6 L, Globulin 3.8, Albumin/Globulin Ratio 0.7 L, TSH 0.31 L 03/05/21 05:55: Phosphorus 2.6 Micro: Microbiology 03/04/21 17:45 Stool Stool Lactoferrin - Final Radiography Diagnostic Testing: Radiology Impression Abdomen/Pelvis CT 03/04/21 08:24 IMPRESSION: Findings suggestive of inflammatory changes in the terminal and distal ileum. The appendix is not identified. Findings suggestive of a 3 cm x 2.3 cm hemangioma at the tip of the right lobe of the liver. Punctate calculus in the left kidney. Electronically Signed: Paxton Hong MD at 10:04 EDT , Service support , Abdomen CT 03/04/21 10:43 IMPRESSION: Findings suggestive of inflammatory bowel disease involving the distal and terminal ileum. Findings suggest a phlegmon. Electronically Signed: Paxton Hong MD at 13:26 EDT , Service support , Physical Exam Const alert and oriented x3 General Appearance: cooperative HEENT normocephalic and head/scalp atraumatic Resp normal respiratory effort Cardio regular rate GI soft to palpation and non-distended Palpation: tender epigastric, RUQ and other; Negative for guarding Extremity no clubbing, cyanosis or edema Neuro CN's II-XII intact bilaterally Psych mental status grossly normal Assessment & Plan Assessment/Plan (1) Ileitis: PLAN: Continue clears-advance as abdominal pain improves, IV abx. Recommend outpatient colonoscopy once inflammation has improved in the future. Dr. Augustin will be rounding this weekend Cherise Horowitz M.D. Pager: [phone] [facility] [address] [place] [address], [facility], [address] [place] [address] Office: [phone] Charges/Coding Visit Charges Inpatient E&M: 28112 Subs Hosp L2
[2021-03-05] MEDS: HYDROmorphone 0.5 MG/0.5 ML SYRINGE IV ×3 (09:45→22:45)
[2021-03-05] MEDS: 0.9% Saline Lock 10 ML Syringe IV ×2 (09:45→18:29)
[2021-03-05] MEDS: MethylPREDNISolone 125 MG/2 ML Vial 60 MG IV (09:47)
--- NOTE | 2021-03-05 10:12 | PN.HOSP_ITS ---
Subjective Subjective Patient was seen and examined. She has had multiple bowel movement. Denies fever or chills. Denied any bloody stools. Objective Data Objective Data Vital Signs: Vital Signs Temp Pulse Resp BP Pulse Ox 97.5 F L 54 L 16 102/57 L 100 03/05/21 08:04 03/05/21 08:04 03/05/21 08:04 03/05/21 08:04 03/05/21 08:04 Oxygen Delivery Method Room Air Weight: 88.1 kg Body Mass Index (BMI) 35.5 Intake & Output: Intake and Output for Last 24 Hours 03/03/21 03/04/21 03/05/21 23:59 23:59 23:59 Intake Total 1279.17 / 1279.17 2700 / 2700 Output Total 200 / 200 Balance 1079.17 / 1079.17 2700 / 2700 Lab / Micro Data Result Diagrams: 03/05/21 05:55 03/05/21 05:55 Labs: Laboratory Results - last 24 hr 03/04/21 11:30: Urine Color Yellow, Urine Clarity Sl. Cloudy, Urine pH 7.0, Ur Specific [place] 1.005, Urine Protein 15 H, Urine Glucose (UA) Normal, Urine Ketones 50 H, Urine Occult Blood 10 H, Urine Nitrite Positive H, Urine Bilirubin Negative, Urine Urobilinogen 1 H, Ur Leukocyte Esterase 100 H, Urine RBC 0 SEEN, Urine WBC 5-10 SEEN, Ur Squamous Epith Cells 0-5 SEEN, Urine Bacteria 2+, Urine Mucus 0 SEEN 03/04/21 17:00: Hgb 12.1, Hct 37.2 03/05/21 05:55: WBC 12.6 H, RBC 4.18 L, Hgb 11.8 L, Hct 37.3, MCV 89.2, MCH 28.2, MCHC 31.6 L, RDW Std Deviation 43.0, RDW Coeff of Kristin 13.1, Plt Count 295, MPV 10.7, Immature Gran % (Auto) 0.600, Neut % (Auto) 94.3 H, Lymph % (Auto) 3.3 L, [place] % (Auto) 1.7, Eos % (Auto) 0.0, Baso % (Auto) 0.1, Absolute Neuts (auto) 11.9 H, Absolute Lymphs (auto) 0.41 L, Nucleated RBC % 0, Differential Comment SCANNED 03/05/21 05:55: Sodium 139, Potassium 3.7, Chloride 106, Carbon Dioxide 22.0, Anion Gap 11, BUN 11, Creatinine 0.68, Estim Creat Clear Calc 81.76, Est GFR (MDRD) Af Amer 119, Est GFR (MDRD) Non-Af 98, BUN/Creatinine Ratio 16.1, Glucose 127 H, Calcium 7.8 L, Magnesium 2.3, Total Bilirubin 0.40, AST 22, ALT 44, Alkaline Phosphatase 134 H, Total Protein 6.4, Albumin 2.6 L, Globulin 3.8, Albumin/Globulin Ratio 0.7 L, TSH 0.31 L 03/05/21 05:55: Phosphorus 2.6 Micro: Microbiology 03/04/21 17:45 Stool Stool Lactoferrin - Final Radiography Diagnostic Testing: Radiology Impression Abdomen CT 03/04/21 10:43 IMPRESSION: Findings suggestive of inflammatory bowel disease involving the distal and terminal ileum. Findings suggest a phlegmon. Electronically Signed: Paxton Hong MD at 13:26 EDT , Service support , Physical Exam Narrative Physical exam: General: Alert, Oriented x3, Cooperative, No apparent distress, Well developed, in mild discomfort HEENT: Atraumatic Oral: Moist Mucosa Neck: Supple Lungs: Clear to auscultation Cardiovascular: HS I+II, regular, no murmurs Abdomen: Bowel Sounds Present, Soft, slight generalized tenderness in the epigastric and right lower quadrant, no guarding no rebound tenderness Extremities: No edema Skin: No rashes, No breakdown Neurological: Grossly intact Psych/Mental Status: Appropriate Assessment & Plan Assessment/Plan (1) Ileitis: (2) Colitis: (3) Sepsis: QUALIFIERS: Sepsis type: sepsis due to unspecified organism Sepsis acute organ dysfunction status: without acute organ dysfunction Qualified Code(s): A41.9 - Sepsis, unspecified organism (4) Hypokalemia: PLAN: 1. Sepsis secondary to acute ileitis of the distal and terminal il eum with possible phlegmon, the differential of possible inflammatory bowel disease Patient is improving, continue gentle IV fluids, IV Cipro and Flagyl as well as Solu-Medrol Continue on clear liquid diet, general surgery following 2. Hypokalemia, resolved 3. Asymptomatic bacteriuria, patient denies any acute UTI We will continue to monitor on antibiotics 4. Rest of her chronic medical conditions appear stable Charges/Coding Visit Charges Inpatient E&M: 83624 Subs Hosp L2
--- NOTE | 2021-03-05 10:45 | CASEMGMT ---
JARAD HARVEY Assessment: Face to Face with pt for initial transition planning/care coordination assessment. RN CANDICE introduced self and role at [facility], pt voices understanding and consents to assessment. Pt is A/O x4 and answers all questions appropriately at this time. Pt lying in bed in no distress. Care providers, pharmacy, and demographics verified/updated. Admitting Dx: colitis PCP: Jenn Specialists: Ny, for lupus; Jessica, chiro; Marley, MARKETING SALES MANAGER; Vickie, cardio; Dena, podiatry Preferred [facility]acy: [facility] Insurance: [employer] MCR Prescription Benefit: yes LW/HPOA: Pt denies having LW/DPOA LNOK: Vitaliy Diamond, Living Arrangements: Pt lives in a single story house with with 5 steps to enter with rail. Pt is I in ADL's and denies concerns at home. Transportation: Pt drives self and denies concerns with transportation. DME/HHC/SNF: Pt has a walker and shower chair at home. Denies any hx of HHC or SNF stays. Pt states no concerns with going home at time of dc. Pt states no further concerns/needs. CM to follow. Advised pt to ask CM if any further question/concerns/needs arise, voices understanding. Pt Goal: Home Plan: Home
[2021-03-05] MEDS: Ciprofloxacin 400 MG/200 ML BAG 200 MG IV ×2 (11:12→20:57)
[2021-03-05] MEDS: metroNIDAZOLE 500 MG/100 ML BAG 100 MG IV ×2 (12:19→22:40)
[2021-03-05] MEDS: Ferrous Gluconate 324 MG Tablet PO ×2 (12:20→16:43)
[2021-03-05 14:00] VITALS: BP 107/64; PULSE 58; RESP 16; TEMP 36.4; O2SAT 99
[2021-03-05 20:00] VITALS: BP 108/64; PULSE 61; RESP 16; TEMP 36.5; O2SAT 100
[2021-03-05] MEDS: Paroxetine 20 MG Tablet PO (20:59)
[2021-03-06 02:41] VITALS: BP 104/63; PULSE 61; RESP 16; TEMP 36.6; O2SAT 98
[2021-03-06] MEDS: 0.9% Normal Saline 1,000 ML 125 ML IV (06:07)
[2021-03-06] MEDS: Heparin Injection (Vial) 5,000 UNIT/ML VIAL 5000 UNIT SC ×3 (06:09→21:16)
[2021-03-06] MEDS: metroNIDAZOLE 500 MG/100 ML BAG 100 MG IV ×3 (06:20→22:20)
[2021-03-06] MEDS: Acetaminophen 500 MG Tablet PO ×2 (06:22→13:46)
[2021-03-06] MEDS: Gabapentin 300 MG Capsule PO ×4 (09:46→21:16)
[2021-03-06] MEDS: Ciprofloxacin 400 MG/200 ML BAG 200 MG IV ×2 (09:57→23:54)
[2021-03-06] MEDS: MethylPREDNISolone 125 MG/2 ML Vial 60 MG IV (09:58)
[2021-03-06] MEDS: Cholecalciferol (VIT D3) 25 MCG TABLET (1,000 UNITS) 50 MCG PO (09:58)
[2021-03-06] MEDS: Potassium Chloride Oral Tablet 20 MEQ 40 MEQ PO (09:59)
[2021-03-06] MEDS: Mycophenolate Mofetil 250 MG Capsule 500 MG PO ×2 (09:59→21:16)
[2021-03-06 10:02] VITALS: BP 109/63; PULSE 53; RESP 18; TEMP 36.8; O2SAT 100
--- NOTE | 2021-03-06 10:24 | PCM.PN.SRG ---
Subjective Subjective Patient feels better this morning. Still having loose liquidy stools. Still needed to have IV pain medication yesterday. Objective Data Objective Data Abdomen is soft some slight tenderness in the upper abdomen. No rebound guarding or peritoneal signs are identified Vital Signs: Vital Signs Temp Pulse Resp BP Pulse Ox 98.3 F 53 L 18 109/63 100 03/06/21 10:02 03/06/21 10:02 03/06/21 10:02 03/06/21 10:02 03/06/21 10:02 Oxygen Delivery Method Room Air Weight: 194 lb 3.636 oz Body Mass Index (BMI) 35.5 Intake & Output: Intake and Output for Last 24 Hours 03/04/21 03/05/21 03/06/21 23:59 23:59 23:59 Intake Total 1279.17 / 1279.17 5852.09 / 5852.09 1647.91 / 1647.91 Output Total 200 / 200 1400 / 1400 300 / 300 Balance 1079.17 / 1079.17 4452.09 / 4452.09 1347.91 / 1347.91 Medical Nutrition Assessment Dietitian: Nutrition Therapy Diagnosis Start: 03/05/21 11:14 Freq: Status: Active Protocol: Document 03/05/21 11:27 (Rec: 03/05/21 11:27 [id number]) Nutrition Malnutrition Evidence of Malnutrition Exists No Intake Problem Inadequate Oral Intake Etiology r/t decreased appetite d/t pain, GI dysfunction Signs/Symptoms as evidenced by estimated PO intake meeting <50% of pt's nutritional needs x 3 days Status Active Problem Recommendation Dietitian Recommendations/Changes Recommend advance diet as tolerated to transitional. Recommend Ensure Clear (Apple) if pt to remain on clear liquids over next 24-48 hours and pt is agreeable to supplement. Lab / Micro Data Result Diagrams: 03/05/21 05:55 03/05/21 05:55 Micro: Microbiology 03/04/21 11:30 Urine, Clean Catch Urine Culture - Final Escherichia coli 03/04/21 17:45 Stool Stool Lactoferrin - Final Assessment & Plan Assessment/Plan (1) Ileitis: PLAN: Patient is doing. White count is improving. Discharge per hospitalist
--- NOTE | 2021-03-06 11:43 | PN.HOSP_ITS ---
Subjective Subjective Patient was seen and examined. She feels better. Diarrhea has slowed down; stool are less watery. Denies any fever or chills. Objective Data Objective Data Vital Signs: Vital Signs Temp Pulse Resp BP Pulse Ox 98.3 F 53 L 18 109/63 100 03/06/21 10:02 03/06/21 10:02 03/06/21 10:02 03/06/21 10:02 03/06/21 10:02 Oxygen Delivery Method Room Air Weight: 88.1 kg Body Mass Index (BMI) 35.5 Intake & Output: Intake and Output for Last 24 Hours 03/04/21 03/05/21 03/06/21 23:59 23:59 23:59 Intake Total 1279.17 / 1279.17 5852.09 / 5852.09 1647.91 / 1647.91 Output Total 200 / 200 1400 / 1400 300 / 300 Balance 1079.17 / 1079.17 4452.09 / 4452.09 1347.91 / 1347.91 Medical Nutrition Assessment Dietitian: Nutrition Therapy Diagnosis Start: 03/05/21 11:14 Freq: Status: Active Protocol: Document 03/05/21 11:27 AG (Rec: 03/05/21 11:27 [id number]) Nutrition Malnutrition Evidence of Malnutrition Exists No Intake Problem Inadequate Oral Intake Etiology r/t decreased appetite d/t pain, GI dysfunction Signs/Symptoms as evidenced by estimated PO intake meeting <50% of pt's nutritional needs x 3 days Status Active Problem Recommendation Dietitian Recommendations/Changes Recommend advance diet as tolerated to transitional. Recommend Ensure Clear (Apple) if pt to remain on clear liquids over next 24-48 hours and pt is agreeable to supplement. Lab / Micro Data Result Diagrams: 03/05/21 05:55 03/05/21 05:55 Micro: Microbiology 03/04/21 11:30 Urine, Clean Catch Urine Culture - Final Escherichia coli 03/04/21 17:45 Stool Stool Lactoferrin - Final Physical Exam Narrative Physical exam: General: Alert, Oriented x3, Cooperative, No apparent distress, Well developed HEENT: Atraumatic Oral: Moist Mucosa Neck: Supple Lungs: Clear to auscultation Cardiovascular: HS I+II, regular, no murmurs Abdomen: Bowel Sounds Present, Soft, slight generalized tenderness in the epi gastric and right lower quadrant, no guarding no rebound tenderness Extremities: No edema Skin: No rashes, No breakdown Neurological: Grossly intact Psych/Mental Status: Appropriate Assessment & Plan Assessment/Plan (1) Ileitis: (2) Colitis: (3) Sepsis: QUALIFIERS: Sepsis type: sepsis due to unspecified organism Sepsis acute organ dysfunction status: without acute organ dysfunction Qualified Code(s): A41.9 - Sepsis, unspecified organism (4) Hypokalemia: PLAN: 1. Sepsis secondary to acute ileitis of the distal and terminal ileum with possible phlegmon, the differential of possible inflammatory bowel disease, improving Discontinue IV fluids, Continue IV Cipro and Flagyl as well as Solu-Medrol Continue on clear liquid diet; full liquid diet at dinner General surgery following; needs colonoscopy in outpatient later 2. Hypokalemia, resolved 3. Asymptomatic bacteriuria, patient denies any acute UTI We will continue to monitor on antibiotics 4. Rest of her chronic medical conditions appear stable Disposition; Possible dc in am if she continues to improve Charges/Coding Visit Charges Inpatient E&M: 80476 Subs Hosp L2
[2021-03-06] MEDS: Ferrous Gluconate 324 MG Tablet PO ×2 (13:14→16:49)
[2021-03-06] MEDS: 0.9% Saline Lock 10 ML Syringe IV ×2 (13:52→22:48)
[2021-03-06] MEDS: Methocarbamol 750 MG Tablet PO (13:52)
[2021-03-06 16:45] VITALS: BP 135/80; PULSE 71; RESP 16; TEMP 36.9; O2SAT 100
[2021-03-06] MEDS: Paroxetine 20 MG Tablet PO (21:16)
[2021-03-06 21:23] VITALS: BP 132/77; PULSE 61; RESP 18; TEMP 36.9; O2SAT 98
[2021-03-07 04:10] VITALS: BP 128/67; PULSE 51; RESP 16; TEMP 36.9; O2SAT 98
[2021-03-07] MEDS: metroNIDAZOLE 500 MG/100 ML BAG 100 MG IV (05:56)
[2021-03-07] MEDS: Heparin Injection (Vial) 5,000 UNIT/ML VIAL 5000 UNIT SC (05:56)
[2021-03-07 06:29] LABS: Absolute Neutrophil Count 7.7 X10^3/uL (2.0-7.7); Basophil# 0.01 X10^3/uL; Basophil% 0.1 % (0-1); Hematocrit 36.1 % (37-47); Hemoglobin 11.4 g/dL (12.0-15.0); Lymphocyte % 6.7 % (19-41); Mean Corp Hgb Conc 31.6 g/dL (32-36); Mean Corpuscular Hgb 28.6 pg (27.0-32.0); Mean Corpuscular Volume 90.7 fL (81-99); Mean Platelet Vol. 11.5 fl (6.2-12.0); Monocyte# 0.69 X10^3/uL; Monocyte% 7.6 % (0-10); NRBC Flagged by Analyzer 0 % (0-5); Neutrophil # 7.67 X10^3/uL (2.7-7.7); POSITIVE DIFFERENTIAL YES; Platelet Count 308 K/mm3 (150-450); RBC Distribution Width CV 13.2 % (11.6-14.6); RBC Distribution Width SD 44.4 fl (35.1-43.9); Red Blood Count 3.98 M/mm3 (4.2-5.4)
[2021-03-07 06:30] LABS: Differential Indicated SCAN CRITERIA MET
[2021-03-07 06:54] LABS: Differential Comment SCANNED
[2021-03-07 07:05] LABS: ALB/GLOB Ratio 0.7 RATIO (0.9-2.4); AST(SGOT) 12 U/L (15-37); Alanine Aminotransfer ALT/SGPT 24 U/L (13-56); Albumin, Serum 2.5 g/dL (3.2-5.0); Alkaline Phosphatase 86 U/L (45-117); Anion Gap 7 (5-15); BUN 10 mg/dL (7-18); BUN/Creat Ratio 17.2 RATIO (10-20); Calcium,Total 8.2 mg/dL (8.5-10.1); Chloride 116 mmol/L (98-107); Creatinine, Serum 0.58 mg/dL (0.55-1.02); EST Glomerular Filtration Rate 118 mL/min (>60); Est Glom Filt Rate - Afr Amer 143 mL/min (>60); Estimated Creatinine Clearance 95.86 ml/min; Globulin 3.6 g/dL (2.2-4.2); Glucose 95 mg/dL (74-106); Protein, Total 6.1 g/dL (6.4-8.2); Sodium Level 140 mmol/L (136-145)
--- NOTE | 2021-03-07 07:53 | PN.SURG_ITS ---
Subjective Subjective Patient feels much better today. Pain is significantly improved. Passing flatus. Objective Data Objective Data Abdomen is soft and nontender. Vital Signs: Vital Signs Temp Pulse Resp BP Pulse Ox 98.5 F 51 L 16 128/67 H 98 03/07/21 04:10 03/07/21 04:10 03/07/21 04:10 03/07/21 04:10 03/07/21 04:10 Oxygen Delivery Method Room Air Weight: 194 lb 3.636 oz Body Mass Index (BMI) 35.5 Intake & Output: Intake and Output for Last 24 Hours 03/05/21 03/06/21 03/07/21 23:59 23:59 23:59 Intake Total 5852.09 / 5852.09 3694.66 / 3994.66 1200 / 1200 Output Total 1400 / 1400 1300 / 1300 400 / 400 Balance 4452.09 / 4452.09 2394.66 / 2694.66 800 / 800 Medical Nutrition Assessment Dietitian: Nutrition Therapy Diagnosis Start: 03/05/21 11:14 Freq: Status: Active Protocol: Document 03/05/21 11:27 (Rec: 03/05/21 11:27 [id number]) Nutrition Malnutrition Evidence of Malnutrition Exists No Intake Problem Inadequate Oral Intake Etiology r/t decreased appetite d/t pain, GI dysfunction Signs/Symptoms as evidenced by estimated PO intake meeting <50% of pt's nutritional needs x 3 days Status Active Problem Recommendation Dietitian Recommendations/Changes Recommend advance diet as tolerated to transitional. Recommend Ensure Clear (Apple) if pt to remain on clear liquids over next 24-48 hours and pt is agreeable to supplement. Lab / Micro Data Result Diagrams: 03/07/21 05:57 03/07/21 05:57 Labs: Laboratory Results - last 24 hr 03/07/21 05:57: WBC 9.0, RBC 3.98 L, Hgb 11.4 L, Hct 36.1 L, MCV 90.7, MCH 28.6, MCHC 31.6 L, RDW Std Deviation 44.4 H, RDW Coeff of Kristin 13.2, Plt Count 308, MPV 11.5, Immature Gran % (Auto) 0.600, Neut % (Auto) 85.0 H, Lymph % (Auto) 6.7 L, [place] % (Auto) 7.6, Eos % (Auto) 0.0, Baso % (Auto) 0.1, Absolute Neuts (auto) 7.7, Absolute Lymphs (auto) 0.60 L, Nucleated RBC % 0, Differential Comment SCANNED 03/07/21 05:57: Sodium 140, Potassium 4.0, Chloride 116 H, Carbon Dioxide 17.0 L , Anion Gap 7, BUN 10, Creatinine 0.58, Estim Creat Clear Calc 95.86, Est GFR (MDRD) Af Amer 143, Est GFR (MDRD) Non-Af 118, BUN/Creatinine Ratio 17.2, Glucose 95, Calcium 8.2 L, Total Bilirubin 0.30, AST 12 L, ALT 24, Alkaline Phosphatase 86, Total Protein 6.1 L, Albumin 2.5 L, Globulin 3.6, Albumin/Globulin Ratio 0.7 L Micro: Microbiology 03/04/21 11:30 Urine, Clean Catch Urine Culture - Final Escherichia coli 03/04/21 17:45 Stool Stool Lactoferrin - Final Assessment & Plan Assessment/Plan (1) Ileitis: PLAN: Okay to be discharged and follow-up with Dr. Glasgow in a week.
[2021-03-07 10:00] VITALS: BP 119/72; PULSE 59; RESP 20; TEMP 36.9; O2SAT 98
[2021-03-07] MEDS: Potassium Chloride Oral Tablet 20 MEQ 40 MEQ PO (10:16)
[2021-03-07] MEDS: Mycophenolate Mofetil 250 MG Capsule 500 MG PO (10:16)
[2021-03-07] MEDS: Gabapentin 300 MG Capsule PO ×2 (10:16→12:56)
[2021-03-07] MEDS: Cholecalciferol (VIT D3) 25 MCG TABLET (1,000 UNITS) 50 MCG PO (10:17)
[2021-03-07] MEDS: MethylPREDNISolone 125 MG/2 ML Vial 60 MG IV (10:17)
--- NOTE | 2021-03-07 10:18 | DS.PCM_ITS ---
Providers Date of Admission: 03/04/21 Date of Discharge: 03/07/21 Primary Care Physician: Dr. Manny Barajas MD Consultations 03/04/21 15:42 Consult: General Surgery Routine Consulting Provider: Cherise Horowitz Reason for Consult: GIB/Colitis EMERGENT Consult: No MD Notified: Yes Date Notified: 03/04/21 Time Notified: 15:22 Method of Notification: Verbal Reason For Visit: ACUTE COLITIS Diagnosis Discharge Diagnosis (1) Ileitis: Status: Acute Code(s): K52.9 - Noninfective gastroenteritis and colitis, unspecified (2) Hypokalemia: Status: Resolved Code(s): E87.6 - Hypokalemia (3) Sepsis: Status: Resolved Code(s): A41.9 - Sepsis, unspecified organism Qualifiers: Sepsis type: sepsis due to unspecified organism Sepsis acute organ dysfunction status: without acute organ dysfunction Qualified Code(s): A41.9 - Sepsis, unspecified organism (4) Leukocytosis: Status: Acute Code(s): D72.829 - Elevated white blood cell count, unspecified (5) Essential hypertension: Status: Chronic Code(s): I10 - Essential (primary) hypertension Medications at Discharge Home Medications multivitamin 1 tab PO DAILY 11/08/17 paroxetine HCl 20 mg tablet 20 mg PO DAILY 11/08/17 prasterone (dhea) 25 mg capsule 25 mg PO DAILY 11/08/17 mycophenolate mofetil 500 mg PO BID 05/15/19 gabapentin 300 mg capsule 300 mg PO 4X/DAY cap 05/20/19 oxycodone-acetaminophen 5 mg-325 mg tablet 1 tab PO Q6H PRN tab 05/20/19 fluticasone propionate 50 mcg/actuation nasal spray,suspension 2 spray INTRANASAL DAILY PRN 05/21/19 methocarbamol 750 mg tablet 750 mg PO 4X/DAY PRN tab 05/21/19 albuterol sulfate 1 - 2 puff INHALATION Q4H PRN PRN #1 inhaler 09/29/19 esomeprazole magnesium 20 mg capsule,delayed release 20 mg PO DAILY PRN 06/29/20 furosemide 40 mg tablet 80 mg PO DAILY tab 06/29/20 potassium chloride 20 mEq tablet,extended release 40 meq PO DAILY tab 07/24/20 cholecalciferol (vitamin D3) 50 mcg PO DAILY 03/04/21 ferrous gluconate 324 mg PO BID 03/04/21 ciprofloxacin HCl [Cipro] 500 mg PO BID #10 tab 03/07/21 metronidazole [Flagyl] 500 mg PO TID #15 tab 03/07/21 prednisone See Taper PO DAILY #30 tab 03/07/21 Hospital Course Operations None Procedures None Summary of Care Provided Minutes Spent on Discharge: 40 Hospital Course: 45-year-old female with past medical history of SLE who prese nted with persistent abdominal pain and fever as well as nausea. Patient's work- up in the ED showed hypokalemia with potassium 3.[address] that was replaced[address] Her CT of her abdomen and pelvis showed distal and terminal ileitis with possible phlegmon. Patient was followed by general surgery. Recommended bowel rest, clear liquid diet, IV fluids, IV Cipro and Flagyl as well as IV steroids. Patient would need colonoscopy in the future. She continued to improve and was discharged on 5 more days of Cipro Flagyl to complete 1 week. She was also given prednisone taper. She knows to follow-up with general surgery within 1 week. She will follow up with her primary care doctor. She was asked to continue on full liquid diet and advance her diet as tolerated. Physical Exam Narrative Physical exam: General: Alert, Oriented x3, Cooperative, No apparent distress, Well developed HEENT: Atraumatic Oral: Moist Mucosa Neck: Supple Lungs: Clear to auscultation Cardiovascular: HS I+II, regular, no murmurs Abdomen: Bowel Sounds Present, Soft, slight generalized tenderness in the epigastric and right lower quadrant, no guarding no rebound tenderness Extremities: No edema Skin: No rashes, No breakdown Neurological: Grossly intact Psych/Mental Status: Appropriate Medical Records Data Medical Nutrition Assessment Dietitian: Nutrition Therapy Diagnosis Start: 03/05/21 11:14 Freq: Status: Active Protocol: Document 03/05/21 11:27 (Rec: 03/05/21 11:27 [id number]) Nutrition Malnutrition Evidence of Malnutrition Exists No Intake Problem Inadequate Oral Intake Etiology r/t decreased appetite d/t pain, GI dysfunction Signs/Symptoms as evidenced by estimated PO intake meeting <50% of pt's nutritional needs x 3 days Status Active Problem Recommendation Dietitian Recommendations/Changes Recommend advance diet as tolerated to transitional. Recommend Ensure Clear (Apple) if pt to remain on clear liquids over next 24-48 hours and pt is agreeable to supplement. Weight / BMI Weight Weight: 88.1 kg Body Mass Index (BMI) 35.5 ABG / Lab / Microbiology Data Result Diagrams: 03/07/21 05:57 03/07/21 05:57 Laboratory: Laboratory Results - last 24 hr 03/07/21 05:57: WBC 9.0, RBC 3.98 L, Hgb 11.4 L, Hct 36.1 L, MCV 90.7, MCH 28.6, MCHC 31.6 L, RDW Std Deviation 44.4 H, RDW Coeff of Kristin 13.2, Plt Count 308, MPV 11.5, Immature Gran % (Auto) 0.600, Neut % (Auto) 85.0 H, Lymph % (Auto) 6.7 L, [place] % (Auto) 7.6, Eos % (Auto) 0.0, Baso % (Auto) 0.1, Absolute Neuts (auto) 7.7, Absolute Lymphs (auto) 0.60 L, Nucleated RBC % 0, Differential Comment SCANNED 03/07/21 05:57: Sodium 140, Potassium 4.0, Chloride 116 H, Carbon Dioxide 17.0 L , Anion Gap 7, BUN 10, Creatinine 0.58, Estim Creat Clear Calc 95.86, Est GFR (MDRD) Af Amer 143, Est GFR (MDRD) Non-Af 118, BUN/Creatinine Ratio 17.2, Glucose 95, Calcium 8.2 L, Total Bilirubin 0.30, AST 12 L, ALT 24, Alkaline Phosphatase 86, Total Protein 6.1 L, Albumin 2.5 L, Globulin 3.6, Albumin/Globulin Ratio 0.7 L Microbiology: Microbiology 03/04/21 11:30 Urine, Clean Catch Urine Culture - Final Escherichia coli 03/04/21 17:45 Stool Stool Lactoferrin - Final D/C Instructions Discharge Diet: No restrictions Meaningful Use Info Meaningful Use Diagnoses (Choose all that apply): None applicable Discharge Plan Admission Admit Date/Time: 03/04/21 15:23 Primary Reason for Your Visit: Acute colitis Attending Provider: Lorri Norton Primary Care Provider: Manny Barajas Consulting Providers: Cherise Horowitz Instructions Patient Instructions: ED Chest Pain, Noncardiac Additional Instructions / Restrictions: Complete your antibiotics as prescribed. Continue to keep yourself hydrated. Follow-up with general surgery within a week . Follow-up with your primary care doctor within 1 to 2 weeks. Discharge Orders/Prescriptions Prescriptions: New ciprofloxacin HCl [Cipro] 500 mg tablet 500 mg PO BID Qty: 10 RF: 0 metronidazole [Flagyl] 500 mg tablet 500 mg PO TID Qty: 15 RF: 0 prednisone 10 mg tablet See Taper mg PO DAILY Qty: 30 RF: 0 Continued prasterone (dhea) [DHEA] 25 mg capsule 25 mg PO DAILY RF: 0 multivitamin tablet 1 tab PO DAILY RF: 0 paroxetine HCl 20 mg tablet 20 mg PO DAILY RF: 0 gabapentin [Neurontin] 300 mg capsule 300 mg PO 4X/DAY RF: 0 oxycodone-acetaminophen 5-325 mg tablet 1 tab PO Q6H PRN (Reason: Pain Score 1-10/10) RF: 0 methocarbamol 750 mg tablet 750 mg PO 4X/DAY PRN (Reason: Pain/Inflammation) RF: 0 furosemide [Lasix] 40 mg tablet 80 mg PO DAILY RF: 0 esomeprazole magnesium [Nexium 24HR] 20 mg capsule,delayed release(DR/EC) 20 mg PO DAILY PRN (Reason: Heartburn Or Indigestion) RF: 0 fluticasone propionate [Allergy Relief (fluticasone)] 50 mcg/actuation spray,suspension 2 spray INTRANASAL DAILY PRN (Reason: Allergies) RF: 0 mycophenolate mofetil 500 MG tablet 500 mg PO BID RF: 0 albuterol sulfate 1 INHALER inhaler 1 - 2 puff INHALATION Q4H PRN PRN (Reason: Wheezing) Qty: 1 RF: 0 potassium chloride 20 mEq tablet extended release 40 meq PO DAILY RF: 0 cholecalciferol (vitamin D3) 25 mcg (1,000 unit) Capsule 50 mcg PO DAILY RF: 0 ferrous gluconate 324 mg (38 mg iron) Tablet 324 mg PO BID RF: 0 Discontinued aspirin 325 mg tablet 325 mg PO DAILY RF: 0 prednisone 10 mg tablet 10 mg PO DAILY RF: 0 meloxicam 15 mg tablet 15 mg PO DAILY RF: 0 Referrals / Follow Up: Manny Barajas MD [Primary Care Provider] - 2 Days Cherise Horowitz MD [STAFF PHYSICIAN] - Within 1 Week Disposition Disposition (needs filled in before D/C Order can be placed): Home, Self Care Charges/Coding Visit Charges Inpatient E&M: 07328 Disch Hosp
[2021-03-07] MEDS: Ciprofloxacin 400 MG/200 ML BAG 200 MG IV (11:13)
[2021-03-07] MEDS: Ferrous Gluconate 324 MG Tablet PO (13:00)
[2021-03-07] MEDS: Acetaminophen 500 MG Tablet PO (13:07)
[2021-03-07] MEDS: Methocarbamol 750 MG Tablet PO (13:07)
[2021-03-07 13:14] VITALS: BP 141/75; PULSE 58; RESP 20; TEMP 36.6; O2SAT 100
--- NOTE | 2021-03-08 14:03 | CASEMGMT ---
JARAD HARVEY Discharge Follow Up Phone Call: LIZZY: 11 Strata: 3 Call Date: 03/08/21 Discharge Date: 03/07/21 Time of Call: 1401 Duration: 3 min Admitting Dx: colitis JARAD HARVEY completed follow up phone call after recent hospitalization. Pt states she is doing about the same since dc from the hospital. She was able to black pickler her rx without difficulty. She has an appt scheduled with the surgeon on Apr 09 and her PCP on March 18. Pt denied questions regarding her dc instructions or medications. Pt has no further questions or concerns at this time.
== END 2021-03-07 13:36 | disposition home or self-care (01) | DRG 387 ==
LOC: ED 14:23 → MS3 15:48
PROVIDERS: Admitting Provider Internal Medicine; Emergency Provider Emergency Medicine; PCP Family Medicine; Visit Provider Internal Medicine
DX: K50.00 Crohn's disease of small intestine without complications (principal); E78.6 Lipoprotein deficiency; M32.9 Systemic lupus erythematosus, unspecified; J45.909 Unspecified asthma, uncomplicated; M79.7 Fibromyalgia; K21.9 Gastro-esophageal reflux disease without esophagitis; F32.9 Major depressive disorder, single episode, unspecified; E66.9 Obesity, unspecified; R82.71 Bacteriuria; Z68.35 Body mass index [BMI] 35.0-35.9, adult; Z79.51 Long term (current) use of inhaled steroids; Z87.891 Personal history of nicotine dependence
CPT/HCPCS: 36415; 74176; 74177; 80053; 81001; 83605; 83630; 83690; 83735; 84100; 84443; 85014; 85018; 85025; 85610; 87077; 87086; 87088; 87186; 99251; 99284; Q9967; A4216; G0463; J0744; J2405

== ENCOUNTER 2021-04-12 05:47 | Day surgery (SDC) | payer MEDICARE, SELFPAY ==
[2021-04-12] VITALS (7 sets, daily range): BP systolic 96–119; BP diastolic 56–76; PULSE 61–82; RESP 16–18; TEMP 36.1–36.9; O2SAT 98–100; BMI 33.0
--- NOTE | 2021-04-12 05:52 | HP.PCM_ITS ---
History and Physical Date of Admission: 04/12/21 Date of Service: 04/09/21 MR#:[id number]:[id number]: ZAC LOCKHARTRep #[id number] Provider:Kaylynn Gonzales/Sex: 45/F [facility] Vital Signs 04/09/21 13:02 04/09/21 13:08 Height 5 ft 2 in Weight: 183 lb 8 oz BMI 33.5 35.5 BP 137/83 H Blood Pressure Location Rt brachial Position Sitting Respiration 18 Pulse 79 Pulse Source Monitor Temp 97.8 F Temp Source Temporal Pulse Oximetry (%) 99 Oxygen Delivery Method room air Intake Visit Reasons: 1month f/u ER Acute Colitis Chief Complaint: 1 month f/u ER Acute colitis [employer] Required: No Is patient in pain?: No Allergies acetaminophen [From Darvocet-N 100] Allergy (Intermediate, Verified 04/09/21 13:03) unknown propoxyphene [From Darvocet-N 100] Allergy (Intermediate, Verified 04/09/21 13:03) unknown celecoxib [From Celebrex] Allergy (Verified 04/09/21 13:03) Angioedema red (food color) Allergy (Verified 04/09/21 13:03) Angioedema Medications multivitamin 1 tab PO DAILY 11/08/17 [History Confirmed 04/09/21] paroxetine HCl 20 mg tablet 20 mg PO DAILY 11/08/17 [History Confirmed 04/09/21] prasterone (dhea) 25 mg capsule 25 mg PO DAILY 11/08/17 [History Confirmed 04/09/21] mycophenolate mofetil 500 mg PO BID 05/15/19 [History Confirmed 04/09/21] gabapentin 300 mg capsule 300 mg PO 4X/DAY cap 05/20/19 [History Confirmed 04/09/21] oxycodone-acetaminophen 5 mg-325 mg tablet 1 tab PO Q6H PRN tab 05/20/19 [His tory Confirmed 04/09/21] fluticasone propionate 50 mcg/actuation nasal spray,suspension 2 spray INTRANASAL DAILY PRN 05/21/19 [History Confirmed 04/09/21] methocarbamol 750 mg tablet 750 mg PO 4X/DAY PRN tab 05/21/19 [History Confirmed 04/09/21] albuterol sulfate 1 - 2 puff INHALATION Q4H PRN PRN #1 inhaler 09/29/19 [Rx Confirmed 04/09/21] esomeprazole magnesium 20 mg capsule,delayed release 20 mg PO DAILY PRN 06/29/20 [History Confirmed 04/09/21] furosemide 40 mg tablet 80 mg PO DAILY tab 06/29/20 [History Confirmed 04/09/21] potassium chloride 20 mEq tablet,extended release 40 meq PO DAILY tab 07/24/20 [History Confirmed 04/09/21] prednisone See Taper PO DAILY #30 tab 03/07/21 [Rx Confirmed 04/09/21] aspirin 325 mg tablet 325 mg PO DAILY 04/09/21 [History Confirmed 04/09/21] cholecalciferol (vitamin D3) 25 mcg (1,000 unit) capsule 25 mcg PO DAILY 04/09/21 [History Confirmed 04/09/21] ferrous gluconate 324 mg (38 mg iron) tablet 324 mg PO TID tab 04/09/21 [History Confirmed 04/09/21] meloxicam 15 mg tablet 15 mg PO DAILY 04/09/21 [History Confirmed 04/09/21] [facility] Medical History (Updated 04/09/21 @ 13:[address] Cherise Horowitz MD) Abnormal EKG Abnormal uterine bleeding (AUB) Anemia Chest pain Depression Dyspnea on exertion Endometrial polyp Essential hypertension Fibromyalgia Hypokalemia Ileitis Kidney stones Lupus Multiple lipomas Palpitations Pulmonary hypertension Submucous uterine fibroid Vitamin D deficiency Surgical History History of bilateral tubal ligation History of left heart catheterization (07/30/20) History of nasal surgery History of uterine fibroid (05/16/19) Previous section S/P bunionectomy S/P laparoscopic cholecystectomy S/P right knee surgery Family History (Updated 04/09/21 @ 13:02 by Makayla Fink) Father Cancer lung Grandmother Diabetes Brother Hypertension Mother Hypercholesterolemia Social History Smoking Status: Former smoker how long ago did patient quit smokin years ago alcohol intake: never substance use type: does not use caffeine: Yes Type: carbonated beverages and coffee Number of servings: 6 HPI HPI HPI: ZAC LOCKHART, is a 45 F who presents to the office today for follow-up from hospitalization normal CT scan of the abdomen showing ileitis was discharged 03/07/21. Patient states since then she was able to slowly advance her diet is basically on a normal diet now. Patient states she has bowel moods daily denies any blood in her stool. Patient denies any abdominal pain during this time. Patient thinks her last colonoscopy was maybe ago Joanie. Patient has previously been on ranitidine for years until it was removed and then she has had Nexium 20 mg p.o. daily as needed. Patient states she only takes Nexium when the reflux depends on what she eats. Patient denies any family history of colon cancer. ROS General General: Yes weight change and fatigue; No appetite, colon cancer, breast cancer or weakness HEENT HEENT: No difficulty swallowing, eye injury, eye surgery, swollen glands or hoarseness Endo Endocrine: No thyroid disease, diabetes mellitus, thyroid cancer, Hair loss, heat intolerance or cold intolerance Skin Skin: Yes rash; No changing moles Additional Details: Lupus Breast Breast: No left breast lump, right breast lump, nipple discharge, breast pain, abnormal mammogram, abnormal US or breast enlargement Musc Musculoskeletal: Yes back problems; No arthritis, rheumatoid arthritis, gout or joint pain Cardio Cardiovascular: No murmur, pacemaker, heart disease, atrial fibrillation, high blood pressure, heart attack, heart stent, palpitations, shortness of breat with exertion or chest pain Psych Psychiatric: Yes depression; No anxiety or hearing voices Resp Respiratory: No shortness of breath, No sleep apnea, No cough, No COPD, No asthma, No emphysema and No wheezing Gastro Gastrointestinal: No abdominal pain, No nausea or vomiting, No diarrhea, No cons tipation, No blood in stool, Yes acid reflux, No hemorrhoids, No ulcers, No gallbladder problem and No black,tarry stools Mark Hematologic: Yes blood thinners, Yes blood disorders, No bleeding, Yes anemia and No blood clots Neuro Neurologic: No system reviewed and no additional complaints, except as documented, No as per HPI, No abnormal gait, No abnormal hearing, No abnormal movements, No abnormal speech, No behavioral changes, No burning sensations, No confusion, No convulsions, No disequilibrium, No dizziness, No localized weakness, No frequent falls, No headache(s), No lack of coordination, No loss of vision, No memory loss, No numbness, No other visual disturbances, No radicular pain, No restless legs, No sensory deficit, No syncope, No tingling, No tremor(s), No weakness and No other Exam Const General: cooperative, healthy appearing, comfortable and no acute distress Neck Neck: normal visual inspection Resp Effort & Inspection: normal respiratory effort Cardio Rate: regular rate GI Inspection: non-distended Palpation: soft, no guarding and nontender Skin General: no rashes or lesions noted Neuro General: patient oriented x3 Psych Affect: normal affect COVID (Procedure Consent) Procedure Criteria Procedure Criteria: Yes Elective The surgeon/proceduralist and patient have discussed in detail the risk of exposure to and/or potential harm posed by the COVID-19 virus with having a surgery/procedure at this time versus the risk of delaying the surgery/procedure. It is not possible to know either the risk of delaying the surgery or procedure or chance of getting an infection with perfect accuracy, but a joint decision was made between the patient and the surgeon/proceduralist to proceed at this time with the scheduled surgery/procedure as indicated on the consent form. Assessment and Plan Assessment and Plan (1) Ileitis: Status: Acute (2) Abnormal CT of the abdomen: Status: Acute (3) GERD (gastroesophageal reflux disease): Status: Acute Plan - Dr. Cherise Horowitz MD: Discussed with patient that Nexium does not work well if she does not take it every day. Would recommend Pepcid to be used as needed instead of Nexium as needed. Really depending on what she eats. But she had been on ranitidine years and is never had an EGD. Ileocecal valve as CT was more consistent with ileitis. I have discussed the above with the patient. I have offered the patient EGD and colonoscopy for evaluation. I have explained the risks/benefits of the procedure and described the procedure. I have discussed the risks with the patient, including but not limited to: infection, bleeding, perforation of the GI tract requiring emergency surgery, inability to complete the procedure, injury to any internal organs, complications of anesthesia, etc. - the patient understands and agrees to proceed. I have answered all the patient's questions to the patient's satisfaction and the patient has no further questions. The patient has been given instructions for the colon cleansing preparation. 1 day clears, MiraLAX Dulcolax split prep. Cherise Horowitz M.D. Pager: [phone] [facility] [address] [place] [address], [address] [place] [address] Office: [phone] Plan Details Other Orders: Orders: Colonoscopy Today EGD Today Coding Level of Care Code Off vis,est,level 3 Diagnoses Ileitis K52.[address] of the abdomen R93.5 GERD (gastroesophageal reflux disease) K21.9 04/09/21 1330<Electronically signed by Cherise Horowitz MD>Date Cherise Horowitz MD
--- NOTE | 2021-04-12 07:00 | IMM_PTH ---
PATIENT: ZAC LOCKHART LOC: EN U#:[id number] AGE/SX: 45/F ROOM: RE04/12/[address]: Dr. Cherise Horowitz MD : 1975 BED: DIS: 04/12/2021 SPEC #: [id number] RECD: 04/12/21 14:28 STATUS: ADIA REQ #: [id number] KENZIE: 04/12/21 07:[address]: Cherise Horowitz DEPT: IMMUNOHISTOCHEMISTRY RECD BY: Jyoti Guthrie ENTERED: 04/12/21 14:29 SP TYPE: IMMUNO OTHR DR: Dr. Ed Barajas MD Tissues: A - Stomach, NOS Procedures: H Pylori (initial) PHYSICIAN & INSTITUTION [place] [id number] SPECIMEN INFORMATION: Tissue Source: A ? Antrum biopsy Clinical Info: Ileitis, abnormal CT abdomen, GERD Specimen Number: [id number] CPT code: 79859 METHODOLOGY: Deparaffinized sections of prefer/formalin-fixed tissue or PAP/DQ stained slides are incubated with monoclonal/polyclonal antibodies/oligonucleotide probes. Localization is made via biotin free immunoperoxidase method. Appropriate controls are performed and reacted as expected. Results on target cell population are indicated in the following table: RESULTS: ANTIBODY / CLONE RESULT Block A H Pylori (polyclonal) negative These tests were developed and their performance characteristics determined by [facility]. They may not have been cleared or approved by the U.S. Food and Drug Administration. The FDA has determined that such clearance or approval is not necessary. The above immunohistochemical/dualISH markers are ordered and reviewed by the Pathologist. INTERPRETATION: A. Antrum biopsy: Negative for Helicobacter pylori organisms. YAZ:lisseth 04/13/2021
--- NOTE | 2021-04-12 07:00 | GASB_PTH ---
PATIENT: ZAC LOCKHART LOC: EN U#:[id number] AGE/SX: 45/F ROOM: RE04/12/[address]: Dr. Cherise Horowitz MD : 1975 BED: DIS: 04/12/2021 SPEC #: [id number] RECD: 04/12/21 10:58 STATUS: ADIA REJuan Manuel #: [id number] KENZIE: 04/12/21 07:[address]: Cherise Horowitz DEPT: SURGICAL PATHOLOGY RECD BY: Vitaliy Farias ENTERED: 04/12/21 11:48 SP TYPE: Gastric Bx OT DR: Dr. Ed Barajas MD Tissues: A - Gastric mucous membrane B - Gastric mucous membrane Procedures: Special Stain Group II Surgery Specimen Level IV Alcian Blue/PAS (control) HEADER OPERATION: Colonoscopy, EGD ([facility] [place]) PRE-OP DIAGNOSIS: Ileitis, abnormal CT abdomen, GERD TISSUE SUBMITTED: A ? Antrum biopsy for histo and H. pylori, B ? GE junction biopsy MICROSCOPIC DIAGNOSIS A. Antrum biopsy: Mild gastritis. See microscopic description and comment. B. GE junction, biopsy: A fragments of gastroesophageal mucosa with focal intestinal metaplasia (goblet cell metaplasia) consistent with Almanza?s esophagus. Chronic inflammation. Negative for dysplasia. See comment. SJ:rg 04/13/2021 COMMENT A. The results of immunohistochemistry for Helicobacter pylori will be reported separately ([id number]). B. Alcian blue/PAS stain with matched control is used in the evaluation of the specimen. MICROSCOPIC DESCRIPTION Slides are reviewed. A. The specimen shows fragments of gastric mucosa with chronic inflammatory cell infiltrates in the lamina propria consisting of lymphocytes and plasma cells, consistent with mild chronic gastritis. GROSS DESCRIPTION A - Received in fixative is one container labeled with the patient's name and designated antrum biopsy. The specimen consists of one irregular fragment of light hannah soft tissue that measures 0.3 x 0.3 x 0.1 cm. The specimen is totally submitted in one cassette. B - Received in fixative is one container labeled with the patient's name and designated GE junction biopsy. The specimen consists of one irregular fragment of light hannah soft tissue that measures 0.3 x 0.3 x 0.1 cm. The specimen is totally submitted in one cassette. / YAZ:lisseth 04/12/21 TC:3 CPT: 59099 x2, 41505
--- NOTE | 2021-04-12 07:39 | OP.COLON_ITS ---
Patient Name: Mirta Diamond Procedure Date: 04/12/2021 7:14 AM Date of : 1975 Age: 45 Procedure: Colonoscopy Indications: Abnormal CT of the GI tract Providers: Cherise Horowitz MD Medicines: Monitored Anesthesia Care Patient Profile: This is a 45 year old female. Last Colonoscopy: 10 years ago. Complications: No immediate complications. Procedure: Pre-Anesthesia Assessment: - Prior to the procedure, a History and Physical was performed, and patient medications and allergies were reviewed. The patient's tolerance of previous anesthesia was also reviewed. The risks and benefits of the procedure and the sedation options and risks were discussed with the patient. All questions were answered, and informed consent was obtained. Prior Anticoagulants: The patient has taken no previous anticoagulant or antiplatelet agents. ASA Grade Assessment: Per anesthesia. After reviewing the risks and benefits, the patient was deemed in satisfactory condition to undergo the procedure. After I obtained informed consent, the scope was passed under direct vision. Throughout the procedure, the patient's blood pressure, pulse, and oxygen saturations were monitored continuously. The Colonoscope was introduced through the anus and advanced to the terminal ileum. The colonoscopy was performed without difficulty. The patient tolerated the procedure well. The quality of the bowel preparation was good. Scope In: Scope Withdrawal Time 0 hours 10 minutes 15 seconds Scope Out: 7:30:36 AM Findings: Hemorrhoids were found on perianal exam. Multiple small-mouthed diverticula were found in the sigmoid colon, descending colon and transverse colon. The terminal ileum appeared normal. Non-bleeding internal hemorrhoids were found. The hemorrhoids were Grade I (internal hemorrhoids that do not prolapse). Impression: - Hemorrhoids found on perianal exam. - Diverticulosis in the sigmoid colon, in the descending colon and in the transverse colon. - The examined portion of the ileum was normal. - Non-bleeding internal hemorrhoids. - No specimens collected. Recommendation: - Repeat colonoscopy in 10 years for screening purposes. - Discharge patient to home. - High fiber diet. - Continue present medications. Procedure Code(s): --- Professional --- 61911, Colonoscopy, flexible; diagnostic, including collection of specimen(s) by brushing or washing, when performed (separate procedure) Diagnosis Code(s): --- Professional --- K64.0, First degree hemorrhoids K57.30, Diverticulosis of large intestine without perforation or abscess without bleeding R93.3, Abnormal findings on diagnostic imaging of other parts of digestive tract CPT copyright 2017 [employer]. All rights reserved. The codes documented in this report are preliminary and upon data architect manager review may be revised to meet current compliance requirements. MD Cherise Rosales MD 04/12/2021 7:37:51 AM This report has been signed electronically. Number of Addenda: 0 Note Initiated On: 04/12/2021 7:14 AM
--- NOTE | 2021-04-12 07:39 | OP.CCLET_ITS ---
04/12/2021 Manny Barajas [address] [place] [address] Re : Colonoscopy procedure for Mirta Diamond Dear Dr. Barajas This procedure was performed on Monday, April 12, 2021. My impressions and recommendations are as follows: Impressions : - Hemorrhoids found on perianal exam. - Diverticulosis in the sigmoid colon, in the descending colon and in the transverse colon. - The examined portion of the ileum was normal. - Non-bleeding internal hemorrhoids. - No specimens collected. Recommendations : - Repeat colonoscopy in 10 years for screening purposes. - Discharge patient to home. - High fiber diet. - Continue present medications. My findings are described in the full procedure note, which is enclosed. If I can be of further assistance, please feel free to contact me at Doctor phone number(s): , Work: . Sincerely, MD Cherise Rosales MD 04/12/2021 7:37:51 AM This report has been signed electronically.
--- NOTE | 2021-04-12 07:48 | OP.EGD_ITS ---
Patient Name: Mirta Diamond Procedure Date: 04/12/2021 6:54 AM Date of : 1975 Age: 45 Procedure: Upper GI endoscopy Indications: Esophageal reflux Providers: Cherise Horowitz MD Medicines: Monitored Anesthesia Care Patient Profile: This is a 45 year old female. Complications: No immediate complications. Procedure: Pre-Anesthesia Assessment: - Prior to the procedure, a History and Physical was performed, and patient medications and allergies were reviewed. The patient's tolerance of previous anesthesia was also reviewed. The risks and benefits of the procedure and the sedation options and risks were discussed with the patient. All questions were answered, and informed consent was obtained. Prior Anticoagulants: The patient has taken no previous anticoagulant or antiplatelet agents. ASA Grade Assessment: Per anesthesia. After reviewing the risks and benefits, the patient was deemed in satisfactory condition to undergo the procedure. After obtaining informed consent, the endoscope was passed under direct vision. Throughout the procedure, the patient's blood pressure, pulse, and oxygen saturations were monitored continuously. The gastroscope was introduced through the mouth, and advanced to the second part of duodenum. The upper GI endoscopy was accomplished without difficulty. The patient tolerated the procedure well. Scope In: 7:09:18 AM Scope Out: 7:13:20 AM Total Procedure Duration Time 0 hours 4 minutes 2 seconds Findings: The Z-line was variable and was found 35 cm from the incisors. Biopsies were taken with a cold forceps for histology. Moderately erythematous mucosa without bleeding was found in the gastric antrum. Biopsies were taken with a cold forceps for histology. Biopsies were taken with a cold forceps for Helicobacter pylori cultures. The cardia and gastric fundus were normal on retroflexion. The exam of the esophagus was otherwise normal. The examined duodenum was normal. Impression: - Z-line variable, 35 cm from the incisors. Biopsied. - Erythematous mucosa in the antrum. Biopsied. - Normal examined duodenum. Recommendation: - Await pathology results. - Discharge patient to home. - Resume previous diet [Duration]. - - Use Nexium (esomeprazole) 40 mg PO daily for 1 week--then 20mg PO daily. - Continue present medications. Procedure Code(s): --- Professional --- 74200, Esophagogastroduodenoscopy, flexible, transoral; with biopsy, single or multiple Diagnosis Code(s): --- Professional --- K22.8, Other specified diseases of esophagus K31.89, Other diseases of stomach and duodenum K21.9, Gastro-esophageal reflux disease without esophagitis CPT copyright 2017 [employer]. All rights reserved. The codes documented in this report are preliminary and upon tax revenue officer review may be revised to meet current compliance requirements. MD Cherise Rosales MD 04/12/2021 7:48:21 AM This report has been signed electronically. Number of Addenda: 0 Note Initiated On: 04/12/2021 6:54 AM
--- NOTE | 2021-04-12 07:50 | OP.CCLET_ITS ---
04/12/2021 Manny Barajas [address] [place] [address] Re : Upper GI endoscopy procedure for Mirta Diamond Dear Dr. Barajas This procedure was performed on Monday, April 12, 2021. My impressions and recommendations are as follows: Impressions : - Z-line variable, 35 cm from the incisors. Biopsied. - Erythematous mucosa in the antrum. Biopsied. - Normal examined duodenum. Recommendations : - Await pathology results. - Discharge patient to home. - Resume previous diet [Duration]. - - Use Nexium (esomeprazole) 40 mg PO daily for 1 week--then 20mg PO daily. - Continue present medications. My findings are described in the full procedure note, which is enclosed. If I can be of further assistance, please feel free to contact me at Doctor phone number(s): , Work: . Sincerely, MD Cherise Rosales MD 04/12/2021 7:48:21 AM This report has been signed electronically.
[2021-04-12] MEDS: Lactated Ringers 1,000 ML 100 ML IV (08:10)
== END 2021-04-12 08:37 | disposition home or self-care (01) ==
LOC: EN 05:48 → AC 05:49
PROVIDERS: PCP Family Medicine; Referring Provider Family Medicine; Visit Provider Surgery
PROC: 0DJD8ZZ Inspection of Lower Intestinal Tract, Via Natural or Artificial Opening Endoscopic (ICD-10-PCS; CPT 45378; principal; 2021-04-12 06:55)
DX: K57.30 Diverticulosis of large intestine without perforation or abscess without bleeding (principal); K64.0 First degree hemorrhoids; K21.00 Gastro-esophageal reflux disease with esophagitis, without bleeding; K29.70 Gastritis, unspecified, without bleeding; K22.70 Barrett's esophagus without dysplasia; F32.9 Major depressive disorder, single episode, unspecified; I10 Essential (primary) hypertension; M79.7 Fibromyalgia; Z79.899 Other long term (current) drug therapy; Z87.891 Personal history of nicotine dependence
CPT/HCPCS: 43239; 45378; 88305; 88313; 88342; J7120; J2405

== ENCOUNTER → 2021-04-21 10:31 | Outpatient (CLI) | payer MEDICARE, SELFPAY ==
[2021-04-21 12:31] LABS: T4 Free Direct 0.96 ng/dL (0.76-1.46); Thyroid Stim Hormone (TSH) 0.73 uIU/mL (0.358-3.74)
== END ==
PROVIDERS: PCP Family Medicine; Referring Provider Family Medicine; Visit Provider Family Medicine
DX: I10 Essential (primary) hypertension (principal); R79.89 Other specified abnormal findings of blood chemistry
CPT/HCPCS: 36415; 84439; 84443

== ENCOUNTER 2021-08-19 15:49 | Outpatient (CLI) | payer MEDICARE, SELFPAY | END 2021-08-19 23:59 | disposition short-term general hospital (02) | PROVIDERS: PCP Family Medicine; Visit Provider Nurse Practitioner Family | DX: Z11.52 Encounter for screening for COVID-19 (principal) | CPT/HCPCS: 87635; U0003; U0005 ==

== ENCOUNTER 2021-08-23 13:49 | Outpatient (CLI) | payer MEDICARE, SELFPAY | END 2021-08-23 23:59 | disposition short-term general hospital (02) | LOC: MFPLAB 13:49 | PROVIDERS: PCP Family Medicine; Visit Provider Family Medicine | DX: N39.0 Urinary tract infection, site not specified (principal) | CPT/HCPCS: 87077; 87086; 87088; 87186 ==

== ENCOUNTER 2021-09-13 18:05 | Outpatient (CLI) | payer MEDICARE, SELFPAY | END 2021-09-13 23:59 | disposition short-term general hospital (02) | PROVIDERS: PCP Family Medicine; Visit Provider Family Medicine | DX: Z20.822 Contact with and (suspected) exposure to COVID-19 (principal) | CPT/HCPCS: 87635; U0003; U0005 ==

== ENCOUNTER 2021-09-15 14:27 | Outpatient (CLI) | payer MEDICARE, SELFPAY ==
[2021-09-15 14:55] VITALS: BP 130/84; PULSE 83; RESP 16; TEMP 37.4; O2SAT 97; BMI 35.3
[2021-09-15] MEDS: 0.9% Saline Lock 10 ML Syringe IV (15:06)
[2021-09-15 15:36] VITALS: BP 119/78; PULSE 60; RESP 16; TEMP 37.4; O2SAT 100
[2021-09-15 16:24] VITALS: BP 120/82; PULSE 97; RESP 16; TEMP 37; O2SAT 97
== END 2021-09-15 23:59 | disposition home or self-care (01) ==
LOC: MS3OUT 14:28 → MS3 14:29
PROVIDERS: PCP Family Medicine; Referring Provider Nurse Practitioner Adult Health; Visit Provider Nurse Practitioner Adult Health
DX: Z23 Encounter for immunization (principal); U07.1 COVID-19; I10 Essential (primary) hypertension
CPT/HCPCS: J7050; M0247; A4216; Q0247

== ENCOUNTER 2021-11-02 11:04 | Outpatient (CLI) | payer MEDICARE, SELFPAY ==
--- NOTE | 2021-11-02 11:07 | RAD_ITS ---
EXAM: XR RIGHT WRIST COMPLETE, 3 OR MORE VIEWS CLINICAL INDICATION: WRIST PAIN TECHNIQUE: Frontal, lateral and oblique views of the right wrist. This report was created using [employer] report generation technology. COMPARISON: None. FINDINGS: BONES/JOINTS: Positive ulnar variance with ulnolunate abutment abutment. Moderate degenerative changes at the radiocarpal articulation. No acute or healing fracture or malalignment. No unusual lytic or sclerotic lesions of bone. SOFT TISSUES: No focal soft tissue abnormalities. No soft tissue swelling or gas. No radiopaque foreign body. RAD/Wrist min 3 Views IMPRESSION: Positive ulnar variance with ulnolunate abutment abutment. Electronically Signed: Adam Naranjo MD at 0:18 EDT ,
== END 2021-11-02 23:59 | disposition home or self-care (01) ==
LOC: MTRAD 11:06
PROVIDERS: PCP Family Medicine; Referring Provider Family Medicine; Visit Provider Family Medicine
DX: M25.531 Pain in right wrist (principal)
CPT/HCPCS: 73110

== ENCOUNTER 2021-11-03 10:32 | Outpatient (CLI) | payer MEDICARE, SELFPAY ==
[2021-11-03 12:20] LABS: Hematocrit 41.8 % (37-47); Hemoglobin 13.8 g/dL (12.0-15.0); Mean Corpuscular Hgb 29.6 pg (27.0-32.0); Mean Corpuscular Volume 89.5 fL (81-99); Platelet Count 405 K/mm3 (150-450); RBC Distribution Width CV 13.6 % (11.6-14.6); RBC Distribution Width SD 44.7 fl (35.1-43.9); Red Blood Count 4.67 M/mm3 (4.2-5.4); White Blood Count 6.8 K/mm3 (4.4-11.0)
[2021-11-03 13:15] LABS: Anion Gap 9 (5-15); BUN 18 mg/dL (7-18); Calcium,Total 8.5 mg/dL (8.5-10.1); Chloride 106 mmol/L (98-107); Cholesterol 207 mg/dL (200); Creatinine, Serum 0.86 mg/dL (0.55-1.02); EST Glomerular Filtration Rate 75 mL/min (>60); Est Glom Filt Rate - Afr Amer 91 mL/min (>60); Ferritin 31 ng/mL (8-252); Glucose 96 mg/dL (74-106); High Density Lipoprotein 59 mg/dL; Iron 154 ug/dL (50-170); Potassium 3.5 mmol/L (3.5-5.1); Sodium Level 140 mmol/L (136-145); Thyroid Stim Hormone (TSH) 1.68 uIU/mL (0.358-3.74); Triglycerides 131 mg/dL; Very Low Density Lipoprotein 26 mg/dL (5-40)
== END 2021-11-03 23:59 | disposition home or self-care (01) ==
LOC: MFPLAB 10:32
PROVIDERS: PCP Family Medicine; Referring Provider Family Medicine; Visit Provider Family Medicine
DX: I10 Essential (primary) hypertension (principal); M79.7 Fibromyalgia; D64.9 Anemia, unspecified
CPT/HCPCS: 36415; 80048; 80061; 82306; 82728; 83540; 84443; 85027

== ENCOUNTER 2022-02-22 09:33 | Emergency (ER) | payer MEDICARE, SELFPAY ==
[2022-02-22 09:34] VITALS: BP 133/92; PULSE 75; RESP 16; TEMP 36.2; O2SAT 99; BMI 31.6
--- NOTE | 2022-02-22 09:44 | EDS_ITS ---
HPI History of Present Illness Chief Complaint: Laceration Detail of Chief Complaint: Laceration of left middle finger Informant: patient Narrative Narrative: Patient presents the emergency department after sustaining a laceration to her left middle finger. Patient states that she was breaking up some glass in a box and she brushed her hand against a piece of glass sustaining a laceration. Patient unsure of her last tetanus. Patient is left-hand dominant. Tetanus Immunization: Unknown Prior similar symptoms: No PFSH PFSH Medical History (Updated 02/22/22 @ 10:[address] Renetta Rasmussen, DO) Abnormal EKG Abnormal uterine bleeding (AUB) Alcohol use Anemia Anemia Back pain Cardiology follow-up encounter Chest pain Depression Dyspnea on exertion Easy bruising Endometrial polyp Essential hypertension Fibromyalgia Former smoker Gastric reflux History of echocardiogram History of edema History of irregular heartbeat History of steroid therapy History of stress test Hypokalemia Ileitis Kidney stones Loss of hearing Lupus Multiple lipomas Palpitations Pulmonary hypertension Rash Shortness of breath on exertion Submucous uterine fibroid Syncope Vitamin D deficiency Wears glasses Home Medications multivitamin 1 tab PO DAILY 11/08/17 [History Last Taken 03/03/21] paroxetine HCl 20 mg tablet 20 mg PO DAILY 11/08/17 [History Last Taken 03/03/21] prasterone (dhea) 25 mg capsule (DHEA) 25 mg PO DAILY 11/08/17 [History Last Taken 03/03/21] mycophenolate mofetil 500 mg tablet 500 mg PO BID 05/15/19 [History Last Taken 03/03/21] gabapentin 300 mg capsule (Neurontin) 300 mg PO 4X/DAY 05/20/19 [History Last Taken 04/12/21] oxycodone-acetaminophen 5 mg-325 mg tablet 1 tab PO Q6H PRN Pain Score 1-05/2305/20/19 [History Last Taken 03/02/21] fluticasone propionate 50 mcg/actuation nasal spray,suspension (Allergy Relief (fluticasone)) 2 spray intranasal DAILY PRN Allergies 05/21/19 [History Last Taken Unknown] methocarbamol 750 mg tablet 750 mg PO 4X/DAY PRN Pain/Inflammation 05/21/19 [History Last Taken 03/03/21] albuterol sulfate 90 mcg/actuation aerosol inhaler 1 - 2 puff inhalation Q4H PRN PRN Wheezing ##1 09/29/19 [Rx Last Taken Unknown] furosemide 40 mg tablet (Lasix) 80 mg PO DAILY 06/29/20 [History Last Taken 03/03/21] potassium chloride 20 mEq tablet,extended release 40 meq PO DAILY 07/24/20 [History Last Taken 03/03/21] aspirin 325 mg tablet 325 mg PO DAILY 04/09/21 [History Last Taken Unknown] cholecalciferol (vitamin D3) 25 mcg (1,000 unit) capsule 25 mcg PO DAILY 04/09/21 [History Last Taken Unknown] ferrous gluconate 324 mg (38 mg iron) tablet 324 mg PO TID 04/09/21 [History Last Taken Unknown] meloxicam 15 mg tablet 15 mg PO DAILY 04/09/21 [History Last Taken Unknown] prednisone 10 mg tablet 10 mg PO DAILY 04/09/21 [History Last Taken 04/12/21] Allergy/AdvReac Type Severity Reaction Status Date / Time propoxyphene Allergy Intermediate unknown Verified 02/22/22 09:34 [From Darvocet-N 100] celecoxib [From Celebrex] Allergy Angioedema Verified 02/22/22 09:34 red (food color) Allergy Angioedema Verified 02/22/22 09:34 Family History (Updated 04/09/21 @ 13:02 by Makayla Fink) Father Cancer lung Grandmother Diabetes Brother Hypertension Mother Hypercholesterolemia Surgical History History of bilateral tubal ligation History of cardiac catheterization History of hysteroscopy History of left heart catheterization (07/30/20) History of nasal surgery History of uterine fibroid (05/16/19) Previous section S/P bunionectomy S/P laparoscopic cholecystectomy S/P right knee surgery Social History Smoking Status: Former smoker how long ago did patient quit smokin years ago alcohol intake: never substance use type: does not use caffeine: Yes Type: carbonated beverages and coffee Number of servings: 6 ROS ROS ED Constitutional Constitutional ED: Reports systems reviewed and no addt'l complaints, except as documented; Denies body ache(s), change in weight or chills Eyes Eyes: Denies acute decrease in peripheral vision, change in vision, double vision or loss of vision ENT ENT ED: Reports none; Denies ear pain, lip swelling, loss taste/smell, neck pain, otalgia or sore throat Cardiovascular Cardiovascular: Reports none; Denies abdominal pain, chest pain with activity, leg edema, lightheadedness, palpitations, rapid heart rate or syncope Respiratory/Chest Respiratory/Chest: Reports none; Denies change in mental status, dry cough, dyspnea, hemoptysis, shortness of breath at rest or shortness of breath with exertion Gastrointestinal Gastrointestinal: Reports none; Denies abdominal pain, change in stool characte r, diarrhea, hematemesis, hematochezia, melena, rectal bleeding or vomiting Genitourinary Genitourinary ED: Reports none; Denies abdominal discomfort, anuria, dysuria, genital pain or polyuria Musculoskeletal Musculoskeletal: Reports none and other Details: Laceration left middle finger ; Denies arthralgias, back pain, difficulty walking, extremity pain, muscle weakness or myalgias Integumentary Reports none; Denies abscess or rash Neurologic Neurologic: Reports none; Denies abnormal gait, confusion, focal weakness, frequent falls, headache(s), loss of vision, numbness, paresthesias, radicular pain, vertigo or weakness Psychiatric Psychiatric: Reports systems reviewed and no addt'l complaints, except as documented and none; Denies behavioral changes, confusion, difficulty concentrating, hallucinations, suicidal ideation, tactile hallucinations or visual hallucinations Endocrine Endocrinology: Denies none, cold intolerance, excessive sweating, fatigue or heat intolerance Hematologic/Lymphatic Hematologic/Lymphatic: Reports none; Denies anemia, easy bleeding or easy bruising Allergic/Immunologic Allergic/Immunologic ED: Denies as per HPI, none, lip swelling, mouth swelling, throat swelling, tongue swelling or hives EXAM Physical Exam Const Vital Signs: 02/22/22 09:34 Temperature 97.2 F L Temperature Source Temporal Pulse Rate 75 Respiratory Rate 16 Blood Pressure 133/92 H Blood Pressure Mean 105 Pulse Ox 99 Oxygen Delivery Method Room Air Positive well nourished and well developed General Appearance ED: well developed and NAD HEENT Reports TM's clear and moist mucous membranes normocephalic and atraumatic; Negative for trauma or tenderness Tympanic Membrane ED: Yes TM's clear Eyes PERRL and EOMs intact bilaterally General Eye ED: Negative for pale conjunctiva or scleral icterus Neck no lymphadenopathy, supple and no JVD General: Negative for tenderness Chest Wall inspection of chest normal and palpation of chest normal Chest: Negative for tenderness Resp normal respiratory effort and clear to auscultation bilaterally Effort and Inspection: Negative for respiratory distress or pain with movement Auscultation: Negative for rhonchi, wheezes or diminished lung sounds Cardio regular rate, regular rhythm, S1 normal heart sound, S2 normal heart sound and no murmurs Peripheral Pulses: pulses 2+ throughout GI normal to inspection, nondistended, normoactive bowel sounds, soft to palpation, non-tender, non-distended and no masses Back/Spine no CVA tenderness and no thoracic nor lumbar tenderness Extremity Extremity Narrative: Evaluation of the left middle finger does reveal a oblique laceration to the dorsal aspect of the proximal phalanx and middle phalanx traversing the PIP joint. Patient has normal flexion extension of the digit. She is able to extend the digit against resistance. Neurovascularly intact distally. Laceration length is 3 cm. General Extremety ED: Negative for edema General Extremity: Negative for edema Neuro oriented x3, CN's II-XII intact bilaterally, no sensory deficits noted and gait normal Sensorium / Orientation: awake, alert, oriented to person, oriented to place and oriented to time Motor Exam: strength 5/5 throughout and strength abnormal Psych mental status grossly normal Skin no rashes or lesions noted and no wounds MDM MDM MDM Narrative Medical decision making narrative: Patient was offered suture repair to which she agreed. See procedure note. Patient had a clean dressing applied after the laceration was sutured. Patient advised to follow-up with her primary care physician in 10 days for suture removal. Patient to return if increasing pain, redness, swelling, purulent drainage, or condition worsen anyway. Procedures Lacerations Finger laceration: Length: 1.18 in Depth: Sub Q Shape: Linear Prep: Sterile Conditions and Shure-Clens Laceration repair: Digital block, Lidocaine and Skin sutures Irrigated (ml): 50 Number of Sutures/Roro: 6 Suture Information: Ethilon, Simple and 5-0 Comment: Wound was inspected through range of motion of flexion extension of the digit. I am able to visualize the extensor tendon and do not appreciate any lacerations in the tendon itself. Wound was irrigated with copious saline and using 5-0 nylon a total of 6 simple interrupted sutures placed with good wound edge approximation. Patient tolerated procedure well. Discharge Plan Triage Chief Complaint: Laceration ED Provider: Renetta Rasmussen Dx/Rx/DC Orders Clinical Impression: Finger laceration Instructions: ED Laceration, Hand: All Closures Prescriptions: No Action prasterone (dhea) [DHEA] 25 mg capsule 25 mg PO DAILY multivitamin tablet 1 tab PO DAILY paroxetine HCl 20 mg tablet 20 mg PO DAILY gabapentin [Neurontin] 300 mg capsule 300 mg PO 4X/DAY oxycodone-acetaminophen 5-325 mg tablet 1 tab PO Q6H PRN (Reason: Pain Score 1-10/10) methocarbamol 750 mg tablet 750 mg PO 4X/DAY PRN (Reason: Pain/Inflammation) furosemide [Lasix] 40 mg tablet 80 mg PO DAILY fluticasone propionate [Allergy Relief (fluticasone)] 50 mcg/actuation spray,suspension 2 spray INTRANASAL DAILY PRN (Reason: Allergies) meloxicam 15 mg tablet 15 mg PO DAILY aspirin 325 mg tablet 325 mg PO DAILY cholecalciferol (vitamin D3) 25 mcg (1,000 unit) capsule 25 mcg PO DAILY mycophenolate mofetil 500 MG tablet 500 mg PO BID albuterol sulfate 1 INHALER inhaler 1 - 2 puff INHALATION Q4H PRN PRN (Reason: Wheezing) Qty: 1 0RF potassium chloride 20 mEq tablet extended release 40 meq PO DAILY ferrous gluconate 324 mg (38 mg iron) tablet 324 mg PO TID prednisone 10 mg tablet 10 mg PO DAILY Taper: Prednisone Taper 40 mg WITH BREAKFAST for 3 Days and 0 Hour 30 mg WITH BREAKFAST for 3 Days and 0 Hour 20 mg WITH BREAKFAST for 3 Days and 0 Hour 10 mg WITH BREAKFAST for 3 Days and 0 Hour Primary Care Provider: Manny Barajas Referrals: Manny Barajas MD [Primary Care Provider] - 10 Day for suture removal Disposition Disposition: Home, Self Care
[2022-02-22] MEDS: Diphth,Pertuss(Acell),Tet Vac 0.5 ML Vial IM (09:49)
[2022-02-22] MEDS: Lidocaine 1% (20 ml mdv) 20 ML Vial 6 ML INFILT (09:55)
== END 2022-02-22 10:24 | disposition home or self-care (01) ==
PROVIDERS: Emergency Provider Emergency Medicine; PCP Family Medicine; Visit Provider Emergency Medicine
DX: S61.213A Laceration without foreign body of left middle finger without damage to nail, initial encounter (principal); I27.20 Pulmonary hypertension, unspecified; I10 Essential (primary) hypertension; W25.XXXA Contact with sharp glass, initial encounter; Z87.891 Personal history of nicotine dependence; F32.A Depression, unspecified; M79.7 Fibromyalgia; K21.9 Gastro-esophageal reflux disease without esophagitis; Z87.442 Personal history of urinary calculi; E55.9 Vitamin D deficiency, unspecified; Z79.899 Other long term (current) drug therapy; Z79.82 Long term (current) use of aspirin; Z23 Encounter for immunization
CPT/HCPCS: 12002; 90471; 90715; 99284

== ENCOUNTER → 2023-03-02 | Outpatient (CLI) | payer MEDICARE, SELFPAY ==
--- NOTE | 2023-03-02 14:30 | BD_ITS ---
STUDY: DUAL ENERGY X-RAY ABSORPTIOMETRY / DXA REASON FOR EXAM: Female, 47 years old. Z79.52 TECHNIQUE: Bone Mineral Density (BMD) measurements of lumbar spine and bilateral hips were obtained. COMPARISON: Comparison is made with prior study November 03, 2020. FINDINGS: Lumbar Spine (L1-L4): g/cm2 (0.941) / T-score (-1.0) / Z-score (-0.3) Findings are suggestive of normal bone density with a low fracture risk. Left Femur Total: g/cm2 (0.860) / T-score (-0.7) / Z-score (-0.3) Left Femoral Neck: g/cm2 (0.694) / T-score (-1.4) / Z-score (-0.8) Right Femur Total: g/cm2 (0.849) / T-score (-0.8) / Z-score (-0.4) Right Femoral Neck: g/cm2 (0.709) / T-score (-1.3) / Z-score (-0.6) The T-Scores on the most recent prior examination were: Lumbar Spine (L1-L4): There has been improvement of bone density since the previous examination. Left Femur Total: which represents a worsening of 3.1%. Right Femur Total: which represents a worsening of 8.5%. BD/Dexa Bone Density Study IMPRESSION: The patient is considered osteopenic as outlined below according to World Ayan Organization (WHO) criteria with a low fracture risk. There has been worsening of bone density since the previous examination. Reference Information: The T-score is the number of standard deviations above or below the standard which is normal for young adults at their peak bone mineral density. The World Health Organization (WHO) interprets the T-scores as follows: Above -1 Normal bone density Between -1 and -2.5 Osteopenia Equal to / or below -2.5 Osteoporosis As a practical clinical guideline, osteopenia may be graded as follows: Mild -1 through -1.5 Moderate -1.6 through -2.0 Severe -2.1 through -2.4 The Z-score is the number of standard deviations above or below age-matched controls. A Z-score of less than -1.5 would be considered abnormal. References: 1. NIH Osteoporosis and Related Bone Diseases www osteo.org 2. International Society for Clinical Densitometry www iscd.org 3. National Osteoporosis Foundation www nof.org Electronically Signed: Paxton Hong MD at 12:30 EDT ,
== END | disposition home or self-care (01) ==
LOC: OPBD 14:22
PROVIDERS: PCP Family Medicine; Referring Provider Family Medicine; Visit Provider Family Medicine
DX: M32.9 Systemic lupus erythematosus, unspecified (principal); Z79.52 Long term (current) use of systemic steroids
CPT/HCPCS: 77080

== ENCOUNTER → 2023-03-07 | Outpatient (CLI) | payer MEDICARE, SELFPAY ==
[2023-03-07 15:31] LABS: Hematocrit 42.9 % (37-47); Hemoglobin 13.3 g/dL (12.0-15.0); Mean Corpuscular Volume 93.5 fL (81-99); Mean Platelet Vol. 11.3 fl (6.2-12.0); Platelet Count 354 K/mm3 (150-450); RBC Distribution Width CV 13.2 % (11.6-14.6); RBC Distribution Width SD 45.2 fl (35.1-43.9); Red Blood Count 4.59 M/mm3 (4.2-5.4); White Blood Count 6.2 K/mm3 (4.4-11.0)
[2023-03-07 15:58] LABS: Vitamin B12 435 pg/mL (211-911); Vitamin D,25 Hydroxy 45.2 ng/mL
[2023-03-07 16:06] LABS: ALB/GLOB Ratio 1.2 RATIO (0.9-2.4); AST(SGOT) 17 U/L (15-37); Alanine Aminotransfer ALT/SGPT 17 U/L (13-56); Albumin, Serum 3.7 g/dL (3.2-5.0); Alkaline Phosphatase 48 U/L (45-117); Anion Gap 6 (5-15); BUN 19 mg/dL (7-18); BUN/Creat Ratio 21.3 RATIO (10-20); CRP 5.03 mg/L (0.0-3.0); Calcium,Total 8.2 mg/dL (8.5-10.1); Chloride 107 mmol/L (98-107); Cholesterol 212 mg/dL (200); Creatinine, Serum 0.89 mg/dL (0.55-1.02); EST Glomerular Filtration Rate 72 mL/min (>60); Est Glom Filt Rate - Afr Amer 87 mL/min (>60); Ferritin 43 ng/mL (8-252); Globulin 3.1 g/dL (2.2-4.2); Glucose 71 mg/dL (74-106); High Density Lipoprotein 55 mg/dL; Iron 53 ug/dL (50-170); Protein, Total 6.8 g/dL (6.4-8.2); Sodium Level 141 mmol/L (136-145); Thyroid Stim Hormone (TSH) 1.71 uIU/mL (0.358-3.74); Triglycerides 124 mg/dL; Very Low Density Lipoprotein 25 mg/dL (5-40)
[2023-03-07 16:36] LABS: Erythrocyte Sedimentation Rate 8 mm/hr (0-30)
[2023-03-09 05:28] LABS: Complement C3 134 mg/dL (82-167)
[2023-03-09 15:08] LABS: Anti-dsDNA Ab 1 IU/mL (0-9)
== END | disposition home or self-care (01) ==
LOC: MFPLAB 09:09
PROVIDERS: PCP Family Medicine; Visit Provider Family Medicine
DX: M32.9 Systemic lupus erythematosus, unspecified (principal); D64.9 Anemia, unspecified; I10 Essential (primary) hypertension; M79.7 Fibromyalgia
CPT/HCPCS: 36415; 80053; 80061; 82306; 82607; 82728; 83540; 84443; 85027; 85652; 86140; 86160; 86225

== ENCOUNTER → 2023-03-16 | Outpatient (CLI) | payer MEDICARE, SELFPAY ==
[2023-03-16 15:45] LABS: Potassium 3.8 mmol/L (3.5-5.1)
[2023-03-16 15:48] LABS: PTHIN 75.9 pg/mL (18.4-80.1)
== END | disposition home or self-care (01) ==
LOC: MFPLAB 14:25
PROVIDERS: PCP Family Medicine; Visit Provider Family Medicine
DX: E83.51 Hypocalcemia (principal); E87.6 Hypokalemia
CPT/HCPCS: 36415; 83970; 84132

== ENCOUNTER 2023-05-10 09:20 | Day surgery (SDC) | payer MEDICARE, SELFPAY ==
--- NOTE | 2023-05-10 09:39 | HP.PCM_ITS ---
[facility] - General General Date of Service: 05/10/23 [facility] Jacquie LOCKHART, is a 47 F who presents for EGD due to Almanza's for screening. Patient is currently on Protonix 40 mg p.o. daily. Denies any current symptoms. office visit 03/28/23 [facility] HPI: 39-year-old female presents due to receiving a recent call letter for repeat EGD. Patient an EGD March 2021 patient did have Almanza's with no dysplasia on pathology. Patient was taking Nexium 20 mg at that time did instruct patient go to 40 mg. Patient states for about a year she was on the 40 and now she is currently back on the 20 mg patient does buy this [id number]. Patient states she does feel bloated occasionally and can get some reflux depending on the type of food that she eats. Patient has not been on Protonix previously. Patient does take an aspirin 325 daily. [facility] Medical History (Updated 05/05/23 @ 12:37 by Gladys Whitney) Abnormal EKG Abnormal uterine bleeding (AUB) Alcohol use Anemia Anemia Back pain Barretts esophagus Cardiology follow-up encounter Chest pain Depression Dyspnea on exertion Easy bruising Endometrial polyp Essential hypertension Fibromyalgia Former smoker Gastric reflux History of echocardiogram History of edema History of irregular heartbeat History of steroid therapy History of stress test Hypokalemia Ileitis Kidney stones Loss of hearing Lupus Multiple lipomas Palpitations Pulmonary hypertension Rash Shortness of breath on exertion Submucous uterine fibroid Syncope Vitamin D deficiency Wears glasses Home Medications multivitamin 1 tab PO DAILY 11/08/17 [History Last Taken 03/03/21] paroxetine HCl 20 mg tablet 20 mg PO DAILY 11/08/17 [History Last Taken 03/03/21] prasterone (dhea) 25 mg capsule (DHEA) 25 mg PO DAILY 11/08/17 [History Last Taken 03/03/21] mycophenolate mofetil 500 mg tablet 500 mg PO BID 05/15/19 [History Last Taken 03/03/21] gabapentin 300 mg capsule (Neurontin) 300 mg PO 4X/DAY 05/20/19 [History Last Taken 04/12/21] oxycodone-acetaminophen 5 mg-325 mg tablet 1 tab PO Q6H PRN Pain Score 1-05/2305/20/19 [History Last Taken 03/02/21] fluticasone propionate 50 mcg/actuation nasal spray,suspension (Allergy Relief (fluticasone)) 2 spray intranasal DAILY PRN Allergies 05/21/19 [History Last Taken Unknown] methocarbamol 750 mg tablet 750 mg PO 4X/DAY PRN Pain/Inflammation 05/21/19 [History Last Taken 03/03/21] albuterol sulfate 90 mcg/actuation aerosol inhaler 1 - 2 puff inhalation Q4H PRN PRN Wheezing ##1 09/29/19 [Rx Last Taken Unknown] furosemide 40 mg tablet (Lasix) 80 mg PO DAILY 06/29/20 [History Last Taken 03/03/21] potassium chloride 20 mEq tablet,extended release 40 meq PO DAILY 07/24/20 [History Last Taken 03/03/21] aspirin 325 mg tablet 325 mg PO DAILY 04/09/21 [History Last Taken 05/09/23] cholecalciferol (vitamin D3) 25 mcg (1,000 unit) capsule 25 mcg PO DAILY 04/09/21 [History Last Taken Unknown] ferrous gluconate 324 mg (38 mg iron) tablet 324 mg PO TID 04/09/21 [History Last Taken Unknown] meloxicam 15 mg tablet 15 mg PO DAILY 04/09/21 [History Last Taken Unknown] prednisone 10 mg tablet 10 mg PO DAILY 04/09/21 [History Last Taken 04/12/21] pantoprazole 40 mg tablet,delayed release 40 mg PO DAILY #30 tabs 03/28/23 [Rx Last Taken Unknown] amoxicillin 500 mg capsule 500 mg PO Q8H 05/10/23 [History Last Taken 05/09/23] Allergy/AdvReac Type Severity Reaction Status Date / Time nickel Allergy Severe Rash Verified 05/10/23 09:44 propoxyphene Allergy Intermediate unknown Verified 05/10/23 09:44 [From Darvocet-N 100] celecoxib [From Celebrex] Allergy Angioedema Verified 05/10/23 09:44 red (food color) Allergy Angioedema Verified 05/10/23 09:44 Family History Father Cancer lung Grandmother Diabetes Brother Hypertension Mother Hypercholesterolemia Surgical History (Updated 05/05/23 @ 12:37 by Gladys Whitney) History of bilateral tubal ligation History of cardiac catheterization History of esophagogastroduodenoscopy (EGD) History of hysteroscopy History of left heart catheterization (07/30/20) History of nasal surgery History of uterine fibroid (05/16/19) Hx of tooth extraction Previous section S/P bunionectomy S/P laparoscopic cholecystectomy S/P right knee surgery Social History Smoking Status: Former smoker how long ago did patient quit smokin years ago alcohol intake: never substance use type: does not use caffeine: Yes Type: carbonated beverages and coffee Number of servings: 6 Past Medical/Surgical History Planned Operation Planned Operative Procedure/s: EGD S.O.S: No Previous Hospitalizations/Surgeries HX Hospitalizations: No HX of Surgeries: TUBAL LAP SHANON BROKEN NOSE 1991 BUNIONECTONY R KNEE ESWL ORAL SURGERY COLONOSCOPY Any Problems With Anesthesia: No You/Your Family Experience Fever (Hyperthermia) With Anes: No Cholinesterase deficiency: No Cardiovascular Hx Chest Pain within Last 2 months: No Hx of Irregular Heartbeat and/or Afib: No Hx Heart Attack: No Hx Congestive Heart Failure: No Hx Rheumatic Fever: No Hx Hypertension: No Hx Internal Defibrillator: No Hx Pacemaker: No Hx Cardiac Catheterization: No Hx Cardiac Surgery/Stents/Etc.: No Hx Stress Test: Yes (ECHO 06/30, 07/16/20) Hx Pain in Legs when Walking/Leg Cramps: No Respiratory Chronic Cough: No HX of Shortness of Breath: Yes Hoarseness: No Hx Chronic Obstructive Pulmonary Disease (COPD): No Hx Asthma: No Hx Emphysema: No Hx Sleep Apnea: No Hx Respiratory Tract Infection/Cold (presently): No Do You Snore Loudly (louder than talking or can be heard): No Do You Often Feel Tired/ Fatigued/ Sleepy Dring Daytime?: No Has Anyone Observed You Stop Breathing During Sleep?: No Result (for STOP score): Negative Hx Smoking: Yes Smoking Status: Former smoker Gastrointestinal Hx Gastroesophageal Reflux: Yes Controlled With Meds: Yes (ON MED) Hx Gastrointestinal Disorders: No Hx Gastrointestinal Bleed: No Hx Ulcer: No Hx Hiatal Hernia: No Difficulty Chewing/Swallowing: No Special diet followed at home: No Hx Unplanned Weight Loss of 20#: No HX Unplanned Weight Gain of 20#: No Neurological Hx Seizures: No HX Syncope/Blackout Spells/Unconsciousness: No Hx Transient Ischemic Attacks (TIA): No Hx Multiple Sclerosis: No Hx Parkinson's Disease: No Hx Head/Neck Injury: No Hx Headaches: No Hx Back Injury/Pain: Yes Recent Onset of Speech Difficulty: No Restless Legs: No Does patient have nerve stimulator: No Blood Disorder Hx Leukemia: No Bleeding Tendencies: No Hx Deep Vein Thrombosis: No Hx High Cholesterol: No Blood Transmitted Disease: No Hx Hepatitis: No Hx Cirrhosis: No Hx Anemia: Yes (ON IRON) Hx Blood Disorders: No (PRONE TO CLOTTING, ON ASA) Reproduction Is Patient Lactating: No Hx Hysterectomy: No Hx Tubal Ligation: Yes Are You Post Menopause: No Genitourinary Hx Renal Disease: No Hx Dialysis: No Musculoskeletal Hx Arthritis: No (LUPUS) Hx Rheumatoid Arthritis: No Hx Gout: No Recent Onset of an Orthopedic Problem: No Endocrine Hx Diabetes: No Thyroid Disease: No Hx Steroid Therapy: Yes (ON DAILY PREDNISONE) Psycho/Social Hx Substance Use: No Hx Alcohol Use: Yes (SOCIAL) Hx Anxiety: No Hx Depression: Yes Mental Illness: No Hx Dementia: No Miscellaneous Hx Cancer: No Recent Exposure to Contagious Disease: No Hx of C-Diff: No Any Loose Teeth: No Allergies nickel Allergy (Severe, Verified 05/10/23 09:44) Rash propoxyphene [From Darvocet-N 100] Allergy (Intermediate, Verified 05/10/23 09:44) unknown celecoxib [From Celebrex] Allergy (Verified 05/10/23 09:44) Angioedema red (food color) Allergy (Verified 05/10/23 09:44) Angioedema Discharge Is Pt Admitted From a Fpc, or a Halfway: No After D/C, Where Do you Plan to Go: Return Home Physical Exam Const alert, oriented x3 and no apparent distress HEENT normocephalic and head/scalp atraumatic Resp normal respiratory effort Cardio regular rate GI soft to palpation and non-tender; Negative for non-distended Palpation: Negative for guarding Extremity no clubbing, cyanosis or edema Neuro CN's II-XII intact bilaterally Psych mental status grossly normal Assessment & Plan Assessment/Plan (1) Barretts esophagus: Surgery Risks - Colonoscopy I discussed with the patient the risks of the procedure: Yes Risks Include but are not Limited To: Plan for an EGD. Risks include but are not limited to: Bleeding, perforation requiring further surgery
[2023-05-10 09:46] VITALS: BP 134/83; PULSE 62; RESP 16; TEMP 36.6; O2SAT 100; BMI 33.5
[2023-05-10] MEDS: Lactated Ringers 1,000 ML 15 ML IV (09:49)
--- NOTE | 2023-05-10 10:30 | EGD_PTH ---
PATIENT: ZAC LOCKHART LOC: EN U#:[id number] AGE/SX: 47/F ROOM: RE05/10/[address]: Dr. Cherise Horowitz MD : 1975 BED: DIS: 05/10/2023 SPEC #: [id number] RECD: 05/10/23 13:43 STATUS: ADIA REJuan Manuel #: [id number] KENZIE: 05/10/23 10:[address]: Cherise Horowitz DEPT: SURGICAL PATHOLOGY RECD BY: Elvin Adams ENTERED: 05/11/23 07:37 SP TYPE: EGD BIOPSY OTHR DR: Dr. Ed Barajas MD Tissues: A - Gastric mucous membrane B - Esophagus, NOS Procedures: Special Stain Group II Special Stain Group I Surgery Specimen Level IV GMS Stain (control) Alcian Blue/PAS (control) HEADER OPERATION: EGD, biopsy PRE-OP DIAGNOSIS: Screening TISSUE SUBMITTED: A - Antrum biopsy for histo and H. pylori, B - Distal Gastroesophageal junction biopsy MICROSCOPIC DIAGNOSIS A. Gastric antrum, biopsy: Chronic gastritis. See comment. B. Distal Gastroesophageal junction, biopsy: Chronic inflammation. Fungal hyphae and budding forms present. No evidence of goblet cell metaplasia. See comment. AM:lisseth 05/12/2023 COMMENT A. The results of immunohistochemistry for Helicobacter pylori will be reported separately ([id number]). B. Alcian blue/PAS stain with matched control supports the above diagnosis. GMS stain with matched control was used in the evaluation of this case. MICROSCOPIC DESCRIPTION Slides are reviewed. GROSS DESCRIPTION A - Received in fixative is one container labeled with the patient's name and designated antrum biopsy. The specimen consists of one irregular fragment of light hannah soft tissue that measures 0.6 x 0.2 x 0.1 cm. The specimen is totally submitted in one cassette. B - Received in fixative is one container labeled with the patient's name and designated GE junction biopsy. The specimen consists of multiple irregular fragments of light hannah soft tissue that in aggregate measure 1.0 x 0.5 x 0.1 cm. The specimen is totally submitted in one cassette. / AM:lisseth 05/11/2023 TC:3 CPT: 28352 x2, 66127, 36669
--- NOTE | 2023-05-10 10:30 | IMM_PTH ---
PATIENT: ZAC LOCKHART LOC: EN U#:[id number] AGE/SX: 47/F ROOM: RE05/10/[address]: Dr. Cherise Horowitz MD : 1975 BED: DIS: 05/10/2023 SPEC #: [id number] RECD: 05/11/23 12:56 STATUS: ADIA REQ #: [id number] KENZIE: 05/10/23 10:[address]: Cherise Horowitz DEPT: IMMUNOHISTOCHEMISTRY RECD BY: Jyoti Guthrie ENTERED: 05/11/23 12:59 SP TYPE: IMMUNO OTHR DR: Dr. Ed Barajas MD Tissues: A - Stomach, NOS Procedures: H Pylori (initial) PHYSICIAN & INSTITUTION [place] [id number] SPECIMEN INFORMATION: Tissue Source: A - Antrum Clinical Info: Screening Specimen Number: [id number] CPT code: 27020 METHODOLOGY: Deparaffinized sections of prefer/formalin-fixed tissue or PAP/DQ stained slides are incubated with monoclonal/polyclonal antibodies/oligonucleotide probes. Localization is made via biotin free immunoperoxidase method. Appropriate controls are performed and reacted as expected. Results on target cell population are indicated in the following table: RESULTS: ANTIBODY / CLONE RESULT Block A H Pylori (polyclonal) negative These tests were developed and their performance characteristics determined by [facility]. They may not have been cleared or approved by the U.S. Food and Drug Administration. The FDA has determined that such clearance or approval is not necessary. The above immunohistochemical/dualISH markers are ordered and reviewed by the Pathologist. INTERPRETATION: A. Antrum, biopsy: Negative for Helicobacter pylori organisms. AM:lisseth 05/12/2023
[2023-05-10 11:08] VITALS: BP 125/73; BP 134/83; PULSE 61; RESP 16; TEMP 36.6; O2SAT 96
[2023-05-10 11:10] VITALS: BP 114/68; BP 134/83; PULSE 62; RESP 16; O2SAT 95
--- NOTE | 2023-05-10 11:13 | OP.EGD_ITS ---
Patient Name: Mirta Diamond Procedure Date: 05/10/2023 10:21 AM Date of : 1975 Age: 47 Procedure: Upper GI endoscopy Indications: Follow-up of Almanza's esophagus Providers: Cherise Horowitz MD Referring MD: Manny Barajas Medicines: Monitored Anesthesia Care Patient Profile: This is a 47 year old female. Complications: No immediate complications. Procedure: Pre-Anesthesia Assessment: - Prior to the procedure, a History and Physical was performed, and patient medications and allergies were reviewed. The patient's tolerance of previous anesthesia was also reviewed. The risks and benefits of the procedure and the sedation options and risks were discussed with the patient. All questions were answered, and informed consent was obtained. Prior Anticoagulants: The patient has taken no anticoagulant or antiplatelet agents except for aspirin. ASA Grade Assessment: Per anesthesia. After reviewing the risks and benefits, the patient was deemed in satisfactory condition to undergo the procedure. After obtaining informed consent, the endoscope was passed under direct vision. Throughout the procedure, the patient's blood pressure, pulse, and oxygen saturations were monitored continuously. The Endoscope was introduced through the mouth, and advanced to the second part of duodenum. The upper GI endoscopy was accomplished without difficulty. The patient tolerated the procedure well. Scope In: 10:51:48 AM Scope Out: 10:59:56 AM Total Procedure Duration Time 0 hours 8 minutes 8 seconds Findings: The Z-line was variable and was found 35 cm from the incisors. Biopsies were taken with a cold forceps for histology. Striped mildly erythematous mucosa without bleeding was found in the gastric antrum. Biopsies were taken with a cold forceps for histology. Biopsies were taken with a cold forceps for Helicobacter pylori cultures. The examined duodenum was normal. The cardia and gastric fundus were normal on retroflexion. Impression: - Z-line variable, 35 cm from the incisors. Biopsied. - Erythematous mucosa in the antrum. Biopsied. - Normal examined duodenum. Recommendation: - Await pathology results. - Discharge patient to home. - Resume previous diet. - Use Nexium (esomeprazole) 40 mg PO daily. - Repeat upper endoscopy 2-3 years for surveillance of Almanza's esophagus. - Continue present medications. Procedure Code(s): --- Professional --- 83722, PT, Esophagogastroduodenoscopy, flexible, transoral; with biopsy, single or multiple Diagnosis Code(s): --- Professional --- K22.89, Other specified disease of esophagus K31.89, Other diseases of stomach and duodenum K22.70, Almanza's esophagus without dysplasia CPT copyright 2021 [employer]. All rights reserved. The codes documented in this report are preliminary and upon bryologist review may be revised to meet current compliance requirements. MD Cherise Rosales MD 05/10/2023 11:12:38 AM This report has been signed electronically. Number of Addenda: 0 Note Initiated On: 05/10/2023 10:21 AM
--- NOTE | 2023-05-10 11:13 | OP.CCLET_ITS ---
05/10/2023 Manny Barajas [address] [place] [address] Re : Upper GI endoscopy procedure for Mirta Diamond Dear Dr. Barajas This procedure was performed on Wednesday, May 10, 2023. My impressions and recommendations are as follows: Impressions : - Z-line variable, 35 cm from the incisors. Biopsied. - Erythematous mucosa in the antrum. Biopsied. - Normal examined duodenum. Recommendations : - Await pathology results. - Discharge patient to home. - Resume previous diet. - Use Nexium (esomeprazole) 40 mg PO daily. - Repeat upper endoscopy 2-3 years for surveillance of Almanza's esophagus. - Continue present medications. My findings are described in the full procedure note, which is enclosed. If I can be of further assistance, please feel free to contact me at Doctor phone number(s): , Work: . Sincerely, MD Cherise Rosales MD 05/10/2023 11:12:38 AM This report has been signed electronically.
[2023-05-10 11:15] VITALS: BP 121/75; BP 134/83; PULSE 62; RESP 16; O2SAT 96
[2023-05-10 11:23] VITALS: BP 115/71; BP 134/83; PULSE 58; RESP 16; TEMP 36.3; O2SAT 96
[2023-05-10 11:37] VITALS: BP 134/83
== END 2023-05-10 11:56 | disposition home or self-care (01) ==
LOC: EN 09:20 → AC 09:21
PROVIDERS: PCP Family Medicine; Referring Provider Family Medicine; Visit Provider Surgery
PROC: 0DJ08ZZ Inspection of Upper Intestinal Tract, Via Natural or Artificial Opening Endoscopic (ICD-10-PCS; CPT 43235; principal; 2023-05-10 10:25)
DX: K29.50 Unspecified chronic gastritis without bleeding (principal); K22.70 Barrett's esophagus without dysplasia; I10 Essential (primary) hypertension; Z79.82 Long term (current) use of aspirin; Z87.891 Personal history of nicotine dependence; M79.7 Fibromyalgia; Z79.899 Other long term (current) drug therapy; Z79.52 Long term (current) use of systemic steroids; K21.00 Gastro-esophageal reflux disease with esophagitis, without bleeding
CPT/HCPCS: 43239; 88305; 88312; 88313; 88342; J7120; J2405

== ENCOUNTER → 2024-02-21 | Outpatient (CLI) | payer MEDICARE, SELFPAY ==
[2024-02-21 10:08] LABS: Absolute Lymphocyte Count 1.98 X10^3/uL (0.83-4.51); Absolute Neutrophil Count 3.8 X10^3/uL (2.0-7.7); Basophil# 0.06 X10^3/uL; Basophil% 0.9 % (0-1); Eosinophil# 0.09 X10^3/uL; Eosinophils% 1.4 % (0-5); Hematocrit 39.7 % (37-47); Hemoglobin 12.5 g/dL (12.0-15.0); Lymphocyte # 1.98 X10^3/ul (0.83-4.51); Lymphocyte % 30.9 % (19-41); Mean Corp Hgb Conc 31.5 g/dL (32-36); Mean Corpuscular Hgb 28.3 pg (27.0-32.0); Mean Platelet Vol. 10.6 fl (6.2-12.0); Monocyte# 0.49 X10^3/uL; Monocyte% 7.7 % (0-10); NRBC Flagged by Analyzer 0 % (0-5); Neutrophil # 3.76 X10^3/uL (2.7-7.7); Neutrophil % 58.8 % (47-70); Platelet Count 388 K/mm3 (150-450); RBC Distribution Width CV 12.8 % (11.6-14.6); Red Blood Count 4.41 M/mm3 (4.2-5.4); White Blood Count 6.4 K/mm3 (4.4-11.0)
[2024-02-21 10:10] LABS: Color, Urine Yellow (Yellow); Glucose, Dipstick Normal (Normal); Ketone-Dipstick Negative (Negative); Leukocyte Esterase-Dipstick 100 /ul (Negative); Nitrite-Dipstick Negative (Negative); Occult Blood-Urine 50 /ul (Negative); Protein-Dipstick Negative (Negative); Urine Bilirubin Dipstick Negative (Negative); Urine Clarity Clear (Clear); Urine Urobilinogen 1 mg/dl (Normal)
[2024-02-21 10:29] LABS: Vitamin B12 561 pg/mL (211-911); Vitamin D,25 Hydroxy 80.8 ng/mL
[2024-02-21 11:27] LABS: ALB/GLOB Ratio 1.1 RATIO (0.9-2.4); AST(SGOT) 12 U/L (15-37); Alanine Aminotransfer ALT/SGPT 19 U/L (13-56); Albumin, Serum 3.4 g/dL (3.2-5.0); Alkaline Phosphatase 45 U/L (45-117); Anion Gap 7 (5-15); BUN 15 mg/dL (7-18); BUN/Creat Ratio 18.2 RATIO (10-20); Calcium,Total 9.1 mg/dL (8.5-10.1); Chloride 109 mmol/L (98-107); Cholesterol 210 mg/dL (200); Creatinine, Serum 0.83 mg/dL (0.55-1.02); EST Glomerular Filtration Rate 78 mL/min (>60); Est Glom Filt Rate - Afr Amer 94 mL/min (>60); Ferritin 14 ng/mL (8-252); Glucose 93 mg/dL (74-106); High Density Lipoprotein 56 mg/dL; Iron 66 ug/dL (50-170); Potassium 3.5 mmol/L (3.5-5.1); Protein, Total 6.4 g/dL (6.4-8.2); Sodium Level 141 mmol/L (136-145); Thyroid Stim Hormone (TSH) 2.15 uIU/mL (0.358-3.74); Triglycerides 165 mg/dL; Very Low Density Lipoprotein 33 mg/dL (5-40)
[2024-02-21 11:37] LABS: Microalbumin,Random Urine 19.1 mg/L (NO RANGE EST.)
== END | disposition home or self-care (01) ==
LOC: MTLAB 08:05
PROVIDERS: PCP Family Medicine; Referring Provider Family Medicine; Visit Provider Family Medicine
DX: Z00.00 Encounter for general adult medical examination without abnormal findings (principal); I10 Essential (primary) hypertension; K21.9 Gastro-esophageal reflux disease without esophagitis; M79.7 Fibromyalgia; E55.9 Vitamin D deficiency, unspecified; D64.9 Anemia, unspecified
CPT/HCPCS: 36415; 80053; 80061; 81002; 82043; 82306; 82607; 82728; 83540; 84443; 85025

== ENCOUNTER → 2024-10-16 | Outpatient (CLI) | payer MEDICARE, SELFPAY ==
--- NOTE | 2024-10-16 13:03 | ECHOD_ITS ---
Reason For Study Reason For Study: Hx Abnormal EKG Procedure This was a 2D Doppler, Color Flow transthoracic echocardiogram. Myocardial strain analysis was performed in this exam to aid in the assessment of cardiac function. Exam performed in department. Left Ventricle Normal size and thickness. The global longitudinal strain = -18.2 % (normal). The left ventricular ejection fraction is 65 %. No evidence for diastolic dysfunction. Right Ventricle Normal right ventricle. Atria The left and right atria are normal. Mitral Valve Trivial mitral valve insufficiency. Tricuspid Valve Trivial tricuspid valve insufficiency. Normal pulmonary artery pressure. Aortic Valve Trisinus/trileaflet aortic valve. Trivial aortic valve insufficiency. Pulmonic Valve The pulmonic valve is not well visualized. Trivial pulmonic valve insufficiency. Great Vessels Normal sized aortic root. Pericardium/Pleural No pericardial effusion. MMode/2D Measurements & Calculations LVIDd: 5.4 cm IVSd: 0.94 cm Ao root diam: 3.3 cm LVIDs: 2.9 cm LVPWd: 0.90 cm LA dimension: 3.9 cm RVDd: 2.8 cm FS: 45.7 % LAV(MOD-bp): 52.7 ml LVAd ap4: 24.5 cm2 SV(MOD-sp4): 51.7 ml LAV(MOD-bp) Indexed: 28.2 ml/m2 LVLd ap4: 6.9 cm SI(MOD-sp4): 27.7 ml/m2 LAV(MOD-sp2): 52.8 ml EDV(MOD-sp4): 74.0 ml LAV(MOD-sp4): 50.3 ml EDV(sp4-el): 73.5 ml LVAs ap4: 11.4 cm2 LVLs ap4: 5.7 cm ESV(MOD-sp4): 22.3 ml ESV(sp4-el): 19.4 ml EF(MOD-sp4): 69.8 % EF(sp4-el): 73.6 % SV(sp4-el): 54.1 ml Ao sinus diam: 3.[address] Junction: 2.7 cm LA dimension(2D): 3.9 cm LA A4 area: 18.1 cm2 RA A4 area: 12.2 cm2 TAPSE: 2.2 cm Time Measurements MV dec time: 0.17 sec Doppler Measurements & Calculations MV E max jose angel: 88.5 cm/sec Lat Peak E' Jose Angel: 14.8 cm/sec Med Peak E' Jose Angel: 12.6 cm/sec MV A max jose angel: 52.0 cm/sec E/E' lat: 6.0 E/E' med: 7.0 MV E/A: 1.7 MV V2 max: 105.6 cm/sec MV P1/2t max jose angel: 105.6 cm/sec Ao V2 max: 124.8 cm/sec MV max P.5 mmHg MV P1/2t: 59.2 msec Ao max P.2 mmHg MV V2 mean: 54.9 cm/sec MV dec slope: 522.8 cm/sec2 Ao V2 mean: 84.6 cm/sec MV mean P.4 mmHg Ao mean P.3 mmHg MV V2 VTI: 29.0 cm MVA(P1/2t): 3.7 cm2 Ao V2 VTI: 28.0 cm AV (velocity ratio): 0.87 LV V1 max: 113.6 cm/sec PA V2 max: 85.7 cm/sec TR max jose angel: 262.9 cm/sec LV V1 max P.2 mmHg TR max P.7 mmHg LV V1 mean P.6 mmHg LV V1 mean: 75.1 cm/sec LV V1 VTI: 24.3 cm ECHO/Echo Complete Interpretation Summary The left ventricular ejection fraction is 65 %. No evidence for diastolic dysfunction. Ordering Physician: Whitney Alvarez Referring Physician: Whitney Alvarez Performed By: Lopez Arvizu, ELTICIA
== END | disposition home or self-care (01) ==
LOC: CVS 13:02
PROVIDERS: PCP Family Medicine; Referring Provider Physician Assistant Medical; Visit Provider Physician Assistant Medical
DX: Z01.810 Encounter for preprocedural cardiovascular examination (principal); R94.31 Abnormal electrocardiogram [ECG] [EKG]; R01.1 Cardiac murmur, unspecified
CPT/HCPCS: 93306

== ENCOUNTER 2024-11-07 06:47 | Day surgery (SDC) | payer MEDICARE, SELFPAY ==
--- NOTE | 2024-10-24 17:49 | PAT.ANESEVAL ---
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 When Was Last Pacemaker Check QUESTION #4 FULL TEXT: You/Your Family Experience fever (hyperthermia) with Anesthesia Last Oral Intake Last Oral intake: Last Oral Intake NPO since Meds taken in AM with sips of water? Meds patient instructed to take am of surgery PONV PONV - production trainer: PONV - production trainer Female Yes 10/24/24 15:01 HX of Motion Sickness Yes 10/24/24 15:01 HX of N/V After Surgery No 10/24/24 15:01 Non-Smoker Yes 10/24/24 15:01 Duration of Surgery greater No 10/24/24 15:01 than 60 minutes Number of Risk Factors 3 10/24/24 15:01 PONV Score Moderate Risk 10/24/24 15:01 Height & Weight Height & Weight: Anesthesia: Height & Weight Height 5 ft 2 in 05/10/23 09:46 Respiratory Assessment Respiratory Assessment - production trainer: Respiratory Tract Infection Hx - production trainer Hx Respiratory Tract Infection No 10/24/24 15:01 STOP Sleep Apnea STOP Sleep Apnea - production trainer: STOP Sleep Apnea - production trainer Hx Hypertension No 10/24/24 15:01 Hx Sleep Apnea No 10/24/24 15:01 CPAP BIPAP Do you snore loudly (louder No 10/24/24 15:01 than talking or can be heard Do you often feel tired/ Yes 10/24/24 15:01 fatigued/ sleepy during daytime? Has anyone observed you stop No 10/24/24 15:01 breathing during sleep? STOP Results Negative 10/24/24 15:01 QUESTION #5 FULL TEXT : Do you snore loudly (louder than talking or can be heard through closed doors)? 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 Specify any problems Hx of Preganancy in last 3 No 10/24/24 15:01 Months Nurse Filling Out Transfusion DSCHRIBER 10/24/24 15:01 & Questions: Date: 10/24/24 10/24/24 15:01 Time: 15:02 10/24/24 15:01 Patient unable to answer at this time (ie. confused, unrespo /Reproduction History /Reproductive History - production trainer: /Reproductive Hx- production trainer Hx Now Gestational Age (in weeks): EDC: Hx Hx Para Hx Section SAB No 10/24/24 15:01 PFSH Medical History (Updated 10/24/24 @ 15:05 by Marla Hsieh) Barretts esophagus Loss of hearing Wears glasses Alcohol use History of steroid therapy Anemia Easy bruising Back pain Syncope Gastric reflux Former smoker Shortness of breath on exertion History of edema Cardiology follow-up encounter History of echocardiogram History of stress test History of irregular heartbeat Ileitis Depression Palpitations Chest pain Dyspnea on exertion Vitamin D deficiency Abnormal EKG Fibromyalgia Essential hypertension Submucous uterine fibroid Endometrial polyp Abnormal uterine bleeding (AUB) Multiple lipomas Anemia Hypokalemia Lupus Home Medications ?Medication ?Instructions ?Recorded ?Last Taken ?Type multivitamin 1 tab PO DAILY 11/08/17 03/03/21 History paroxetine HCl 20 mg tablet 20 mg PO QHS 11/08/17 03/03/21 History prasterone (dhea) 25 mg capsule 25 mg PO DAILY 11/08/17 03/03/21 History (DHEA) mycophenolate mofetil 500 mg tablet 500 mg PO BID 05/15/19 03/03/21 History gabapentin 300 mg capsule 300 mg PO 4X/DAY 05/20/19 04/12/21 History (Neurontin) oxycodone-acetaminophen 5 mg-325 1 tab PO Q6H PRN Pain Score 1-05/2305/20/19 03/02/21 History mg tablet fluticasone propionate 50 2 spray intranasal DAILY PRN 05/21/19 Unknown History mcg/actuation nasal Allergies spray,suspension (Allergy Relief (fluticasone)) methocarbamol 750 mg tablet 750 mg PO 4X/DAY PRN 05/21/19 03/03/21 History Pain/Inflammation albuterol sulfate 90 mcg/actuation 1 - 2 puff inhalation Q4H PRN PRN 09/29/19 Unknown Rx aerosol inhaler Wheezing ##1 furosemide 40 mg tablet (Lasix) 80 mg PO DAILY 06/29/20 03/03/21 History potassium chloride 20 mEq 40 meq PO DAILY 07/24/20 03/03/21 History tablet,extended release aspirin 325 mg tablet 325 mg PO QHS 04/09/21 05/09/23 History cholecalciferol (vitamin D3) 25 25 mcg PO DAILY 04/09/21 Unknown History mcg (1,000 unit) capsule ferrous gluconate 324 mg (38 mg 324 mg PO TID 04/09/21 Unknown History iron) tablet meloxicam 15 mg tablet 15 mg PO DAILY PRN pain 04/09/21 Unknown History prednisone 10 mg tablet 10 mg PO DAILY 04/09/21 04/12/21 History esomeprazole magnesium 40 mg 40 mg PO DAILY #30 caps 09/27/24 Unknown Rx capsule,delayed release (Nexium) Allergy/AdvReac Type Severity Reaction Status Date / Time nickel Allergy Severe Rash Verified 10/24/24 14:59 propoxyphene (From Allergy Intermediate unknown Verified 10/24/24 14:59 Darvocet-N 100) celecoxib (From Celebrex) Allergy Angioedema Verified 10/24/24 14:59 red (food color) Allergy Angioedema Verified 10/24/24 14:59 Family History Father Cancer lung Grandmother Diabetes Brother Hypertension Mother Hypercholesterolemia Surgical History (Updated 10/04/24 @ 09:07 by Marla Hsieh) Hx of dilation and curettage Hx of tooth extraction History of esophagogastroduodenoscopy (EGD) History of cardiac catheterization History of hysteroscopy History of left heart catheterization (07/30/20) History of nasal surgery History of uterine fibroid (05/16/19) S/P bunionectomy S/P laparoscopic cholecystectomy History of bilateral tubal ligation Previous section S/P right knee surgery Social History Smoking Status: Former smoker how long ago did patient quit smokin years ago alcohol intake: never substance use type: does not use caffeine: Yes Type: carbonated beverages and coffee Number of servings: 6 Audit: Pertinent Findings Pertinent Findings EKG Perinent findings: Sinus jesus manuel with LVH, and some ST changes Stress test pertinent findings: Impression in 2020: 1. There is no evidence of significant ischemia or infarction on the nuclear portion of the test. Please see above for the EKG portion. 2. The gated Cardiolite study reports an LVEF of greater than 70%. Echo (EF%) pertinent findings: 65%, WNL study Recommendation Anesthesia Recommendation Anesthesia recommendation: OPTIMIZED for anesthesia
--- NOTE | 2024-11-06 17:36 | PCM.HP.BLA ---
History and Physical Date of Admission: 11/07/24 VIRTUAL VISIT History and Phsyical This is a virtual visit using [employer] Zoom Video Visit. It required patient-provider interaction for the medical decision making as documented below. I have communicated my name and active licensure. The patient's identity and physical location were verified at the time of this visit. Either the patient or their legal national sales representative has been informed of the risks and benefits of -- and alternatives to -- treatment through a remote evaluation and consents to proceed with the evaluation remotely. Expand All Collapse All Pre-Op History and Physical HPI: The patient is a 49 year old female presenting for pre-operative visit. She is scheduled for Hysteroscopy D&C, polypectomy for AUB, endometrial polyp- original surgery canceled due to needing further testing for cardiac clearance. Had previous medical clearance. on 11/07/24. Procedure discussed along with risks, benefits and complications. Other alternatives discussed for management. Consent form signed? Previously signed but will need to resign day of surgery PAST MEDICAL HISTORY PAST MEDICAL HISTORY Diagnosis Date ? Abdominal pain, left lower quadrant ? Anemia, unspecified ? Blood in stool ? Depressive disorder, not elsewhere classified ? Diarrhea ? Fibromyalgia ? Hemorrhage of gastrointestinal tract, unspecified ? Left ovarian cyst 03/18/2011 ? Lupus erythematosus PAST SURGICAL HISTORY PAST SURGICAL HISTORY Procedure Laterality Date ? BUNIONECTOMY, [place]-TYPE 06/23 bilateral ? DELIVERY ONLY 1991 , low transverse ? CHOLECYSTECTOMY 2004 Cholecystectomy ? COLONOSCOPY W/BIOPSY SINGLE/MULTIPLE 02/21/11 ? DILATION & CURETTAGE 05/2019 benign pathology done at [facility]- Dr. Roach ? LIG/TRNSXJ FLP TUBE ABDL/VAG APPR UNI/BI 1998 Tubal ligation ? PAST SURGICAL HISTORY OF 2007 torn patella tendon right knee ? PAST SURGICAL HISTORY OF 2008 right knee CURRENT MEDICATIONS Current Outpatient Medications Medication Sig Dispense Refill ? norethindrone (AYGESTIN) 5 mg tablet Take 1 pill three times daily until bleeding stops then 1 tab BID x 3 days then daily until surgery. 45 tablet 1 ? Prasterone, DHEA, 25 mg tab Take 25 mg by mouth. ? albuterol HFA (PROVENTIL HFA, VENTOLIN HFA) 90 mcg/actuation inhaler Inhale as instructed. ? fluticasone (FLONASE) 50 mcg/actuation nasal spray Use in the nose. ? ergocalciferol, vitamin D2, (VITAMIN D2 ORAL) Take by mouth. D3 ? esomeprazole (NEXIUM) 20 mg capsule Take 20 mg by mouth DAILY (6 AM). ? METHOCARBAMOL ORAL Take by mouth as needed. ? PARoxetine (PAXIL) 20 mg tablet Take 20 mg by mouth once daily. ? gabapentin (NEURONTIN) 300 mg capsule Take 1 capsule by mouth four times daily. 0 ? potassium chloride(K-DUR 10 MEQ TAB) Take 20 mEq by mouth. 0 0 ? FERROUS GLUCONATE 325 MG TAB 1 tab. three times daily 0 0 ? ASPIRIN 325 MG TAB Take by mouth. 0 0 ? furosemide(LASIX 40 MG TAB) Take one(1) tablet daily. 0 0 ? oxycodone hcl/acetaminophen(PERCOCET 7.5 MG-325 MG TAB) 1-2 tabs as needed 0 0 ? meloxicam(MOBIC 15 MG TAB) Take one(1) tablet daily. 0 0 ? multivitamins(DAILY MULTIVITAMIN TAB) Take one(1) tablet daily. 0 0 ? mycophenolate mofetil(CELLCEPT 500 MG TAB) 1 tab. twice daily 0 0 ? PREDNISONE 10 MG TAB Take one(1) tablet daily. 0 0 No current facility-administered medications for this visit. ALLERGIES: Celebrex [Celecoxib], Darvocet A500 [Propoxyphene N-Acetaminophen], and Red Dye PERSONAL HISTORY: SOCIAL HISTORY Social History Tobacco Use ? Smoking status: Former ? Smokeless tobacco: Never Vaping Use ? Vaping status: Never Used Substance Use Topics ? Alcohol use: Yes Comment: rarely ? Drug use: Never FAMILY HISTORY: FAMILY HISTORY FAMILY HISTORY Problem Relation Age of Onset ? other (Cancer, lung - heavy smoker) Father lung to brain ( at 68) ? Lipids Mother ? No Known Problems Brother in a car accident ? Diabetes Maternal Grandmother ? Colon Cancer Maternal Grandfather ? Diabetes Paternal Grandmother ? No Known Problems Paternal Grandfather ? Hypertension Brother ? No Known Problems Daughter ? No Known Problems Daughter ? No Known Problems Daughter ? No Known Problems Son REVIEW OF SYMPTOMS: negative except as noted above PHYSICAL EXAMINATION: VITALS: not done today . GENERAL: The patient is well nourished, well hydrated in no acute distress. The patient is oriented to time, place, and person. Happy and smiling on video IMPRESSION: 49yo with AUB, Endometrial Polyp PLAN: Hysteroscopy , D&C, polypectomy with symphion Pt has been counseled on risks/benefits and alternatives of surgery including but not limited to anesthesia, bleeding, infection, uterine perforation with subsequent injury to pelvic structures including bowel, bladder, ureters and vessels. Pt wishes to proceed with surgery at this time. Pre and post op instructions reviewed. Dose not need to stop asa prior to procedure. Pre op clearance received, cardiac clearance sent to [facility]. I have reviewed and updated past medical and surgical history, medications and allergies Catalina Roach MD [facility] on 10/25/2024 Note shared with patient
[2024-11-07] VITALS (9 sets, daily range): BP systolic 114–131; BP diastolic 62–84; PULSE 53–65; RESP 14–18; TEMP 36.2–36.8; O2SAT 95–100; BMI 34.7
[2024-11-07] MEDS: 0.9% Normal Saline (1000mL) 1,000 ML 15 ML IV (07:45)
[2024-11-07 07:57] LABS: Absolute Lymphocyte Count 2.18 X10^3/uL (0.83-4.51); Absolute Neutrophil Count 4.6 X10^3/uL (2.0-7.7); Basophil# 0.06 X10^3/uL; Basophil% 0.8 % (0-1); Eosinophil# 0.18 X10^3/uL; Eosinophils% 2.3 % (0-5); Hematocrit 41.5 % (37-47); Hemoglobin 13.6 g/dL (12.0-15.0); Lymphocyte # 2.18 X10^3/ul (0.83-4.51); Lymphocyte % 27.9 % (19-41); Mean Corp Hgb Conc 32.8 g/dL (32-36); Mean Corpuscular Hgb 28.3 pg (27.0-32.0); Mean Corpuscular Volume 86.3 fL (81-99); Mean Platelet Vol. 10.5 fl (6.2-12.0); Monocyte# 0.79 X10^3/uL; Monocyte% 10.1 % (0-10); NRBC Flagged by Analyzer 0 % (0-5); Neutrophil # 4.58 X10^3/uL (2.7-7.7); Neutrophil % 58.5 % (47-70); Platelet Count 414 K/mm3 (150-450); RBC Distribution Width CV 14.5 % (11.6-14.6); RBC Distribution Width SD 46.2 fl (35.1-43.9); Red Blood Count 4.81 M/mm3 (4.2-5.4); White Blood Count 7.8 K/mm3 (4.4-11.0)
--- NOTE | 2024-11-07 08:16 | PCM.PRE.AN2 ---
ASA Classification* ASA Classification ASA Classification: 2 Assessment & Plan Anesthesia* Anesthesia Assessment Anesthesia Assessment: Discussed sedation and/or anesthesia options, risks, benefits, and alternatives with patient/parents/legal guardian/POA. Questions invited. The patient/parents/legal guardian/POA seems to understand and agrees to proceed with anesthesia plan. Reviewed the physical assessment, medical history, allergy history and patient home medications list prior to surgery/procedure/anesthetic and documented any changes. Performed airway and anesthesia risk assessments. Anesthesia Type Anesthesia Type: MAC History Source History Obtained from:: Patient and Chart Anesthesia Focused Assessment* Temperature: 97.9 F Pulse Rate: 60 Blood Pressure: 131/75 Respiratory Rate: 18 Pulse Ox: 98 Oxygen Delivery Method: Room Air Airway Assessment Mouth opens: >3 cm Mallampati Score: II Teeth Condition: Chipped/Broken (Tooth #26 is broken.) Neck Range of motion (ROM): Full ROM Focused Labs Anesthesia Preop lab: CBC WBC 7.8 K/mm3 (4.4-11.0) 11/07/24 07:41 11/07/24 RBC 4.81 M/mm3 (4.2-5.4) 11/07/24 07:41 11/07/24 Hgb 13.6 g/dL (12.0-15.0) 11/07/24 07:41 11/07/24 Hct 41.5 % (37-47) 11/07/24 07:41 11/07/24 Plt Count 414 K/mm3 (150-450) 11/07/24 07:41 11/07/24 CHEMISTRY Potassium 3.5 mmol/L (3.5-5.1) 02/21/24 08:06 02/21/24 Sodium 141 mmol/L (136-145) 02/21/24 08:06 02/21/24 Magnesium 2.3 mg/dL (1.6-2.6) 03/05/21 05:55 03/05/21 Phosphorus 2.6 mg/dL (2.5-4.9) 03/05/21 05:55 03/05/21 BUN 15 mg/dL (7-18) 02/21/24 08:06 02/21/24 Creatinine 0.83 mg/dL (0.55-1.02) 02/21/24 08:06 02/21/24 Glucose 93 mg/dL (74-106) 02/21/24 08:06 02/21/24 TSH 2.15 uIU/mL (0.358-3.74) 02/21/24 08:06 02/21/24 COAG PT 15.7 SECONDS (11.7-14.9) H 03/04/21 09:00 03/04/21 Urine Test Negative Negative 05/16/19 05:52 05/16/19 Pre-Assessment Diagnosis/Proposed Procedure Planned Operative Procedure(s): HYSTEROSCOPY D&C POLYPECTOMY Anesthesia History 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 When Was Last Pacemaker Check QUESTION #4 FULL TEXT: You/Your Family Experience fever (hyperthermia) with Anesthesia Last Oral Intake Last Oral intake: Last Oral Intake NPO since 20:00 11/07/24 07:29 Meds taken in AM with sips of water? Meds patient instructed to take am of surgery PONV PONV - supervisor electronic coils: PONV - supervisor electronic coils Female Yes 10/24/24 15:01 HX of Motion Sickness Yes 10/24/24 15:01 HX of N/V After Surgery No 10/24/24 15:01 Non-Smoker Yes 10/24/24 15:01 Duration of Surgery greater No 10/24/24 15:01 than 60 minutes Number of Risk Factors 3 10/24/24 15:01 PONV Score Moderate Risk 10/24/24 15:01 Height & Weight Height & Weight: Anesthesia: Height & Weight Height 5 ft 2 in 11/07/24 07:29 Weight: 86 kg 11/07/24 07:29 Body Mass Index (BMI) 34.7 11/07/24 07:29 Respiratory Assessment Respiratory Assessment - supervisor electronic coils: Respiratory Tract Infection Hx - supervisor electronic coils Hx Respiratory Tract Infection No 10/24/24 15:01 STOP Sleep Apnea STOP Sleep Apnea - supervisor electronic coils: STOP Sleep Apnea - supervisor electronic coils Hx Hypertension No 10/24/24 15:01 Hx Sleep Apnea No 10/24/24 15:01 CPAP BIPAP Do you snore loudly (louder No 10/24/24 15:01 than talking or can be heard Do you often feel tired/ Yes 10/24/24 15:01 fatigued/ sleepy during daytime? Has anyone observed you stop No 10/24/24 15:01 breathing during sleep? STOP Results Negative 10/24/24 15:01 QUESTION #5 FULL TEXT : Do you snore loudly (louder than talking or can be heard through closed doors)? 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 Specify any problems Hx of Preganancy in last 3 No 10/24/24 15:01 Months Nurse Filling Out Transfusion DSCHRIBER 10/24/24 15:01 & Questions: Date: 10/24/24 10/24/24 15:01 Time: 15:02 10/24/24 15:01 Patient unable to answer at this time (ie. confused, unrespo /Reproduction History /Reproductive History - supervisor electronic coils: /Reproductive Hx- supervisor electronic coils Hx Now Gestational Age (in weeks): EDC: Hx Hx Para Hx Section SAB No 10/24/24 15:01 Active Medications Active Medications: Current Medications Generic Name Dose Route Start Last Admin Trade Name Freq PRN Reason Stop Dose Admin Sodium Chloride 1,000 mls @ 15 mls/hr 11/07/24 07:05 11/07/24 07:45 IV 15 mls/hr .Q48H NIECY Administration PFSH Medical History Barretts esophagus Loss of hearing Wears glasses Alcohol use History of steroid therapy Anemia Easy bruising Back pain Syncope Gastric reflux Former smoker Shortness of breath on exertion History of edema Cardiology follow-up encounter History of echocardiogram History of stress test History of irregular heartbeat Ileitis Depression Palpitations Chest pain Dyspnea on exertion Vitamin D deficiency Abnormal EKG Fibromyalgia Essential hypertension Submucous uterine fibroid Endometrial polyp Abnormal uterine bleeding (AUB) Multiple lipomas Anemia Hypokalemia Lupus Home Medications ?Medication ?Instructions ?Recorded ?Last Taken ?Type multivitamin 1 tab PO DAILY 11/08/17 11/06/24 History paroxetine HCl 20 mg tablet 20 mg PO QHS 11/08/17 11/06/24 History prasterone (dhea) 25 mg capsule 25 mg PO DAILY 11/08/17 11/06/24 History (DHEA) mycophenolate mofetil 500 mg tablet 500 mg PO BID 05/15/19 11/06/24 History gabapentin 300 mg capsule 300 mg PO 4X/DAY 05/20/19 11/06/24 History (Neurontin) oxycodone-acetaminophen 5 mg-325 1 tab PO Q6H PRN Pain Score 1-05/2305/20/19 03/02/21 History mg tablet fluticasone propionate 50 2 spray intranasal DAILY PRN 05/21/19 11/05/24 History mcg/actuation nasal Allergies spray,suspension (Allergy Relief (fluticasone)) methocarbamol 750 mg tablet 750 mg PO 4X/DAY PRN 05/21/19 03/03/21 History Pain/Inflammation albuterol sulfate 90 mcg/actuation 1 - 2 puff inhalation Q4H PRN PRN 09/29/19 11/05/24 Rx aerosol inhaler Wheezing ##1 furosemide 40 mg tablet (Lasix) 80 mg PO DAILY 06/29/20 11/06/24 History potassium chloride 20 mEq 40 meq PO DAILY 07/24/20 11/06/24 History tablet,extended release aspirin 325 mg tablet 325 mg PO QHS 04/09/21 11/06/24 History cholecalciferol (vitamin D3) 25 25 mcg PO DAILY 04/09/21 11/06/24 History mcg (1,000 unit) capsule ferrous gluconate 324 mg (38 mg 324 mg PO TID 04/09/21 11/06/24 History iron) tablet meloxicam 15 mg tablet 15 mg PO DAILY PRN pain 04/09/21 11/06/24 History prednisone 10 mg tablet 10 mg PO DAILY 04/09/21 11/06/24 History esomeprazole magnesium 40 mg 40 mg PO DAILY #30 caps 09/27/24 11/07/24 Rx capsule,delayed release (Nexium) Allergy/AdvReac Type Severity Reaction Status Date / Time nickel Allergy Severe Rash Verified 11/07/24 07:26 propoxyphene (From Allergy Intermediate unknown Verified 11/07/24 07:26 Darvocet-N 100) celecoxib (From Celebrex) Allergy Angioedema Verified 11/07/24 07:26 red (food color) Allergy Angioedema Verified 11/07/24 07:26 Family History Father Cancer lung Grandmother Diabetes Brother Hypertension Mother Hypercholesterolemia Surgical History Hx of dilation and curettage Hx of tooth extraction History of esophagogastroduodenoscopy (EGD) History of cardiac catheterization History of hysteroscopy History of left heart catheterization (07/30/20) History of nasal surgery History of uterine fibroid (05/16/19) S/P bunionectomy S/P laparoscopic cholecystectomy History of bilateral tubal ligation Previous section S/P right knee surgery Social History Smoking Status: Former smoker how long ago did patient quit smokin years ago alcohol intake: never substance use type: does not use caffeine: Yes Type: carbonated beverages and coffee Number of servings: 6 Review of Systems (Anesthesia) ROS Narrative System reviewed and no additional complaints, except as documented.
[2024-11-07 08:25] LABS: Anion Gap 12 (5-15); BUN 19 mg/dL (4-19); BUN/Creat Ratio 22.2 RATIO (10-20); Calcium,Total 8.7 mg/dL (7.6-11.0); Carbon Dioxide 20.9 mmol/L (21.0-32.0); Chloride 107 mmol/L (98-108); Creatinine, Serum 0.87 mg/dL (0.70-1.20); EST Glomerular Filtration Rate 81 (>60); Estimated Creatinine Clearance 78.72 ml/min (50-250); Glucose 92 mg/dL (70-99); Potassium 4.5 mmol/L (3.3-5.1); Sodium Level 140 mmol/L (133-145)
--- NOTE | 2024-11-07 08:30 | EMB_PTH ---
PATIENT: MIRTA DIAMOND [place] [facility] [place][id number] AGE/SX: 49/F ROOM: RE11/07/[address]: Dr. Catalina Ahn, MDDOB: 1975 BED: DIS: 11/07/2024 SPEC #: [id number] RECD: 11/07/24 11:53 STATUS: ADIA ASH #: [id number] KENZIE: 11/07/24 08:[address]: Catalina Ahn DEPT: SURGICAL PATHOLOGY RECD BY: Neto Vieyra ENTERED: 11/07/24 11:53 SP TYPE: ENDOM BX/C OTHR DR: Dr. Ed Barajas MD Tissues: A - Endometrium, NOS Procedures: Surgery Specimen Level IV HEADER OPERATION: Hysteroscopy, D&C, polypectomy PRE-OP DIAGNOSIS: Abnormal uterine bleeding, endometrial polyp TISSUE SUBMITTED: A- Endometrial curettings and polyp MICROSCOPIC DIAGNOSIS A. ENDOMETRIUM, CURETTAGE AND POLYPECTOMY: - INACTIVE ENDOMETRIUM WITH PROGESTIN EFFECT. - FOCAL NECROSIS WITH ACUTE INFLAMMATION SUGGESTIVE OF SHEDDING ENDOMETRIUM. - NO VIABLE ENDOCERVICAL TISSUE OBSERVED. MICROSCOPIC DESCRIPTION Slides are reviewed. GROSS DESCRIPTION A. Received in formalin labeled, Mirta Diamond, and designated endometrial curettings and polyp, are multiple pink-hannah, ragged, irregularly-shaped, soft tissue fragments and a minimal amount of red-brown, clotted material that aggregates to 6.2 x 6.0 x 2.5 cm. Totally submitted in 16 cassettes. TESS 11/07/2024 CPT:51959
--- NOTE | 2024-11-07 08:55 | PCM.DC ---
Discharge Instructions Diet Discharge Diet: No restrictions DC O2, CPAP, BIPAP needs Home O2 Discharge instructions: No Dressing / Incision May resume sexual activity in: 1 week Dressing / Incision Call your doctor if you observe: Fever of 101 or Higher, Inability to urinate, Using more than 1 pad per hour and Uncontrolled pain Follow Up Care Please Follow Up With: Catalina Ahn MD When: 1-2 weeks post OP if you need an appointment please call [phone] Test Results: Test results from this visit will be discussed in further detail at your follow-up appointment, if applicable. Discharge Plan Admission Attending Provider: Catalina Ahn Primary Care Provider: Ed Barajas Instructions Print Language: Czech Discharge Orders/Prescriptions Prescriptions: No Action prasterone (dhea) [DHEA] 25 mg capsule 25 mg PO DAILY multivitamin tablet 1 tab PO DAILY paroxetine HCl 20 mg tablet 20 mg PO QHS gabapentin [Neurontin] 300 mg capsule 300 mg PO 4X/DAY oxycodone-acetaminophen 5-325 mg tablet 1 tab PO Q6H PRN (Reason: Pain Score 1-10/10) methocarbamol 750 mg tablet 750 mg PO 4X/DAY PRN (Reason: Pain/Inflammation) furosemide [Lasix] 40 mg tablet 80 mg PO DAILY fluticasone propionate [Allergy Relief (fluticasone)] 50 mcg/actuation spray,suspension 2 spray INTRANASAL DAILY PRN (Reason: Allergies) meloxicam 15 mg tablet 15 mg PO DAILY PRN (Reason: pain) aspirin 325 mg tablet 325 mg PO QHS cholecalciferol (vitamin D3) 25 mcg (1,000 unit) capsule 25 mcg PO DAILY mycophenolate mofetil 500 MG tablet 500 mg PO BID albuterol sulfate 1 INHALER inhaler 1 - 2 puff INHALATION Q4H PRN PRN (Reason: Wheezing) Qty: 1 0RF potassium chloride 20 mEq tablet extended release 40 meq PO DAILY ferrous gluconate 324 mg (38 mg iron) tablet 324 mg PO TID prednisone 10 mg tablet 10 mg PO DAILY Taper: Prednisone Taper 40 mg WITH BREAKFAST for 3 Days and 0 Hour 30 mg WITH BREAKFAST for 3 Days and 0 Hour 20 mg WITH BREAKFAST for 3 Days and 0 Hour 10 mg WITH BREAKFAST for 3 Days and 0 Hour esomeprazole magnesium [Nexium] 40 mg capsule,delayed release(DR/EC) 40 mg PO DAILY Qty: 30 1RF Other Ambulatory Orders: Basic Metabolic Profile (BMP) (Routine) Timeframe: 20241107 Facility: [facility] - Location: Laboratory Ordered By: Dr. Catalina Ahn CBC-Complete Blood Cnt No Diff (Routine) Timeframe: 20241107 Facility: [facility] - Location: Laboratory Ordered By: Dr. Catalina Ahn ,Urine (Routine) Timeframe: 20241107 Facility: [facility] - Location: Laboratory Ordered By: Dr. Catalina Ahn Referrals / Follow Up: Ed Barajas MD [Primary Care Provider] - Disposition Disposition (needs filled in before D/C Order can be placed): Home, Self Care
--- NOTE | 2024-11-07 08:56 | OP.PCM_ITS ---
Operative Report (Standard) Operative Information Date of Procedure: 11/07/24 Pre-Operative Diagnosis: AUB, endometrial polyp Post-Operative Diagnosis: same Surgery/Procedure Performed: Hysteroscopy, D&C, polypectomy with symphion validation consultant: Yes Dairy Farm Operator: HIMA Rios Tasks completed by first dyer: Retracting Additional assistant women's tennis coach?: No Type of Anesthesia: MAC RN Documented Start/Stop Times: Operation Date: 11/07/24 08:30 Case Time Into Pre-Op 11/07/24 07:02 Select all DRAINS/GRAFTS/IMPLANTS that apply: None Specimen collected: Yes Description of specimen(s) removed: endometrial curettings, endometrial polyp Description of surgery: Informed consent was obtained the patient was taken the operating room she was placed in supine position. She was given anesthesia. She was then placed in the [facility] where she was prepped and draped in the normal sterile fashion. At this time the weighted speculum was placed in the posterior fornix of vagina. Single-tooth tenaculum was used to gently grasp the anterior lip the cervix. At this time the uterine cavity was sounded to approximately 10 cm. Gentle dilatation was performed once adequate dilatation of the cervix was achieved the hysteroscope using normal saline as a distention medium was placed. Tubal ostia visualized. . Symphion resecting device used to obtain endometrial curettings and to perform polypectomy. Tissue will be sent to pathology for evaluation. Tenaculum removed. Good hemostasis. Instrument, lap count correct x 2. Vaginal Sweep was negative. Complications Complications: No Admit VTE Documentation VTE Present on Admission: Yes VTE Mechan Device Prophylaxis: SCD's VTE Pharm Prophylaxis ordered?: No Reason prophylaxis not ordered: Treatment Not Indicated
--- NOTE | 2024-11-07 08:56 | PCM.OPRPT ---
Operative Report (Standard) Operative Information Date of Procedure: 11/07/24 Pre-Operative Diagnosis: AUB, endometrial polyp Post-Operative Diagnosis: same Surgery/Procedure Performed: Hysteroscopy, D&C, polypectomy with symphion ditching machine operating engineer: Yes Bulbs Farmworker: HIMA Rios Tasks completed by credentialing assistant: Retracting Additional carpenter's assistant?: No Type of Anesthesia: MAC RN Documented Start/Stop Times: Operation Date: 11/07/24 08:30 Case Time Into Pre-Op 11/07/24 07:02 Procedure Start Time: 09:10 Procedure Stop Time: 09:26 Select all DRAINS/GRAFTS/IMPLANTS that apply: None Estimated Blood Loss: 5cc Specimen collected: Yes Description of specimen(s) removed: endometrial curettings, endometrial polyp Description of surgery: Informed consent was obtained the patient was taken the operating room she was placed in supine position. She was given anesthesia. She was then placed in the [facility] where she was prepped and draped in the normal sterile fashion. At this time the weighted speculum was placed in the posterior fornix of vagina. Single-tooth tenaculum was used to gently grasp the anterior lip the cervix. At this time the uterine cavity was sounded to approximately 10 cm. Gentle dilatation was performed once adequate dilatation of the cervix was achieved the hysteroscope using normal saline as a distention medium was placed. Thickened endometrial tissue- endometrial polypoid tissue and possible submucosal fibroid present . Symphion resecting device used to obtain endometrial curettings and to perform polypectomy. there was some bleeding from the polypoid or possible fibroid tissue on right side of uterus which started to obscure visualization, therefore procedure was stopped however it appeared majority of tissue was removed . Tissue will be sent to pathology for evaluation. Tenaculum removed. Good hemostasis. Instrument, lap count correct x 2. Vaginal Sweep was negative. fluid deficit 650cc. Surgical Findings: thickened endometrial tissue with polypoid tissue and possible submucosal fibroid. Complications Complications: No Admit VTE Documentation VTE Present on Admission: Yes VTE Mechan Device Prophylaxis: SCD's VTE Pharm Prophylaxis ordered?: No Reason prophylaxis not ordered: Treatment Not Indicated
--- NOTE | 2024-11-07 09:40 | PCM.POST.ANE ---
Anesthesia: Postop Eval I Current Vital Signs Temperature: 97.1 F Pulse Rate: 65 Blood Pressure: 117/62 Respiratory Rate: 14 Pulse Ox: 98 Oxygen Delivery Method: Room Air Assessment Airway patent: Yes Spontaneous unlabored respirations: Yes Mental status: Awake nausea: No Vomiting: No Anesthesia Complication: No Fluid Hydration Crystalloid volume administer (ml): 500 Total IV fluid infused: 500 Progress Note Anesthesia document: Postop Eval 1 completed: Yes
[2024-11-07] MEDS: HYDROcodone Bitartrate/Apap 5/325 Tablet PO (10:19)
--- NOTE | 2024-11-07 22:41 | POSTOPAN2_ITS ---
Anesthesia Postop Eval I Sum Postop Eval Completion status Anesthesia document: Postop Eval 1 completed: Yes Anesthesia Postop Eval I Summary Anesthesia Postop Eval I Summary: Anesthesia Postop Eval I: Assessment Summary Airway patent Yes 11/07/24 09:40 HEALTH [email or web address].[email or web address] Spontaneous unlabored Yes 11/07/24 09:40 HEALTH ADMINISTRATOR.HBARR respirations Mental status Awake 11/07/24 09:40 HEALTH ADMINISTRATOR.HBARR nausea No 11/07/24 09:40 HEALTH ADMINISTRATOR.HBARR Vomiting No 11/07/24 09:40 HEALTH ADMINISTRATOR.HBARR Anesthesia Postop Eval I: Fluid Summary Crystalloid volume administer 500 11/07/24 09:40 HEALTH ADMINISTRATOR.HBARR (ml) Colloids volume administered ( ml) Blood Product volume administered (ml) Total IV fluid infused 500 11/07/24 09:40 HEALTH ADMINISTRATOR.HBARR Anesthesia Postop Eval I: Summary Notes Anesthesia Complication No 11/07/24 09:40 HEALTH ADMINISTRATOR.HBARR Anesthesia Complication Comment: Post-operative progress note Anesthesia: Postop Eval II Evaluation Mental status: Awake and Calm Pain Level: 1 nausea: No Vomiting: No Complications Anesthesia Complication: No
--- NOTE | 2024-11-07 22:41 | PCM.POSTANE2 ---
Anesthesia Postop Eval I Sum Postop Eval Completion status Anesthesia document: Postop Eval 1 completed: Yes Anesthesia Postop Eval I Summary Anesthesia Postop Eval I Summary: Anesthesia Postop Eval I: Assessment Summary Airway patent Yes 11/07/24 09:40 INSURANCE SALES SPECIALIST.[email or web address] Spontaneous unlabored Yes 11/07/24 09:40 INSURANCE SALES SPECIALIST.HBARR respirations Mental status Awake 11/07/24 09:40 INSURANCE SALES SPECIALIST.HBARR nausea No 11/07/24 09:40 INSURANCE SALES SPECIALIST.HBARR Vomiting No 11/07/24 09:40 INSURANCE SALES SPECIALIST.HBARR Anesthesia Postop Eval I: Fluid Summary Crystalloid volume administer 500 11/07/24 09:40 INSURANCE SALES SPECIALIST.HBARR (ml) Colloids volume administered ( ml) Blood Product volume administered (ml) Total IV fluid infused 500 11/07/24 09:40 INSURANCE SALES SPECIALIST.HBARR Anesthesia Postop Eval I: Summary Notes Anesthesia Complication No 11/07/24 09:40 INSURANCE SALES SPECIALIST.HBARR Anesthesia Complication Comment: Post-operative progress note Anesthesia: Postop Eval II Evaluation Mental status: Awake and Calm Pain Level: 1 nausea: No Vomiting: No Complications Anesthesia Complication: No
== END 2024-11-07 11:00 | disposition home or self-care (01) ==
LOC: SDC 06:48 → AC 06:48
PROVIDERS: PCP Family Medicine; Referring Provider Obstetrics & Gynecology; Visit Provider Obstetrics & Gynecology
PROC: 0UB98ZZ Excision of Uterus, Via Natural or Artificial Opening Endoscopic (ICD-10-PCS; CPT 58558; principal; 2024-11-07 08:15)
DX: N71.0 Acute inflammatory disease of uterus (principal); N93.9 Abnormal uterine and vaginal bleeding, unspecified; N84.0 Polyp of corpus uteri; Z87.891 Personal history of nicotine dependence; K21.9 Gastro-esophageal reflux disease without esophagitis; I10 Essential (primary) hypertension; Z79.899 Other long term (current) drug therapy; Z79.82 Long term (current) use of aspirin
CPT/HCPCS: 58558; 00952; 80048; 85025; 88305; J2405

== ENCOUNTER → 2025-03-06 | Outpatient (CLI) | payer MEDICARE, SELFPAY ==
[2025-03-06 13:15] LABS: Cholesterol 174 mg/dL (<=200); Low Density Lipoprotein Calc. 80 mg/dL; Triglycerides 165 mg/dL; Very Low Density Lipoprotein 33 mg/dL (5-40); cholesterol:hdl ratio screen 2.87
[2025-03-06 13:25] LABS: AST(SGOT) 25 U/L (<=31); Alanine Aminotransfer ALT/SGPT 40 U/L (<=34); Albumin, Serum 4.1 g/dL (3.5-5.0); Alkaline Phosphatase 55 U/L (35-104); Bilirubin, Direct 0.15 mg/dL (0.00-0.30); Globulin 1.9 g/dL (2.2-4.2); Magnesium 1.9 mg/dL (1.5-2.2); Vitamin B12 990 pg/mL (180-914); Vitamin D,25 Hydroxy 48.8 ng/mL (30-100)
== END | disposition home or self-care (01) ==
LOC: MTLAB 09:01
PROVIDERS: PCP Family Medicine; Referring Provider Family Medicine; Visit Provider Family Medicine
DX: Z13.220 Encounter for screening for lipoid disorders (principal); E78.5 Hyperlipidemia, unspecified; E55.9 Vitamin D deficiency, unspecified; K52.9 Noninfective gastroenteritis and colitis, unspecified
CPT/HCPCS: 36415; 80061; 80076; 82306; 82607; 83735; 84443

== ENCOUNTER 2025-05-22 07:07 | Day surgery (SDC) | payer MEDICARE, SELFPAY ==
--- NOTE | 2025-05-15 17:37 | PAT.ANESEVAL ---
Pre-Assessment Diagnosis/Proposed Procedure Planned Operative Procedure(s): HYSTEROSCOPY D&C,POSS POLYPECTOMY, SYMPHION, IUD INSERTION, ABLATION WITH TITO Anesthesia History Anesthesia History - medical coding instructor: Anesthesia History - medical coding instructor Hx Hospitalization Yes: 02/2025, FOOD POSIONING. 05/15/25 10:20 [place]. Any Problems With Anesthesia No 05/15/25 10:20 Cholinesterase deficiency No 05/15/25 10:20 You/Your Family Experience No 05/15/25 10:20 fever (hyperthermia) with Relationship Recent Exposure to Contagious No 11/07/24 07:29 Disease Does patient have nerve No 05/15/25 10:20 stimulator Patient instructed to have device shut off --Does patient have Pacemaker or ICD? When Was Last Pacemaker Check QUESTION #4 FULL TEXT: You/Your Family Experience fever (hyperthermia) with Anesthesia Last Oral Intake Last Oral intake: Last Oral Intake NPO since Meds taken in AM with sips of water? Meds patient instructed to take am of surgery PONV PONV - medical coding instructor: PONV - medical coding instructor Female Yes 05/15/25 10:20 HX of Motion Sickness No 05/15/25 10:20 HX of N/V After Surgery No 05/15/25 10:20 Non-Smoker Yes 05/15/25 10:20 Duration of Surgery greater No 05/15/25 10:20 than 60 minutes Number of Risk Factors 2 05/15/25 10:20 PONV Score Moderate Risk 05/15/25 10:20 Height & Weight Height & Weight: Anesthesia: Height & Weight Height 5 ft 2 in 11/07/24 07:29 Respiratory Assessment Respiratory Assessment - medical coding instructor: Respiratory Tract Infection Hx - medical coding instructor Hx Respiratory Tract Infection No 05/15/25 10:20 STOP Sleep Apnea STOP Sleep Apnea - medical coding instructor: STOP Sleep Apnea - medical coding instructor Hx Hypertension No 05/15/25 10:20 Hx Sleep Apnea No 05/15/25 10:20 CPAP BIPAP Do you snore loudly (louder No 05/15/25 10:20 than talking or can be heard Do you often feel tired/ No 05/15/25 10:20 fatigued/ sleepy during daytime? Has anyone observed you stop No 05/15/25 10:20 breathing during sleep? STOP Results Negative 05/15/25 10:20 QUESTION #5 FULL TEXT : Do you snore loudly (louder than talking or can be heard through closed doors)? Tobacco Use History Tobacco Use History - medical coding instructor: Tobacco Use History - medical coding instructor Tobacco Use Smoking Status Former smoker 05/15/25 10:20 Hx Tobacco Use No 05/15/25 10:20 Years Smoking Packs Smoked per Day Smoking Cessation Date was No - quit smoking greater 05/15/25 10:20 within the last 15 years than 15 years ago Hx Smoking Cessation Date 08/14/97 05/15/25 10:20 Hx Smoking Cessation No 05/15/25 10:20 Counseling Hematologic Medial History Hematologic Hx - medical coding instructor: Hematologic Medical Hx - cloth cutting machine operator Hx of Blood Transfusion No 05/15/25 10:20 Hx of Transfusion in last 3 No 05/15/25 10:20 Months Date of Last Transfusion (if within last 3 months) Ever experience any problems No 05/15/25 10:20 with transfusion(s)? Specify any problems Hx of Preganancy in last 3 No 05/15/25 10:20 Months Nurse Filling Out Transfusion [email or web address] 05/15/25 10:20 & Questions: Date: 05/15/25 05/15/25 10:20 Time: 10:22 05/15/25 10:20 Patient unable to answer at this time (ie. confused, unrespo /Reproduction History /Reproductive History - medical coding instructor: /Reproductive Hx- medical coding instructor Hx Now No 05/15/25 10:20 Gestational Age (in weeks): EDC: Hx Hx Para Hx Section SAB No 05/15/25 10:20 PFSH Medical History Barretts esophagus Loss of hearing Wears glasses Alcohol use History of steroid therapy Anemia Easy bruising Back pain Syncope Gastric reflux Former smoker Shortness of breath on exertion History of edema Cardiology follow-up encounter History of echocardiogram History of stress test History of irregular heartbeat Ileitis Depression Palpitations Chest pain Dyspnea on exertion Vitamin D deficiency Abnormal EKG Fibromyalgia Essential hypertension Submucous uterine fibroid Endometrial polyp Abnormal uterine bleeding (AUB) Multiple lipomas Anemia Hypokalemia Lupus Home Medications ?Medication ?Instructions ?Recorded ?Last Taken ?Type multivitamin 1 tab PO DAILY 11/08/17 11/06/24 History paroxetine HCl 20 mg tablet 20 mg PO QHS 11/08/17 11/06/24 History mycophenolate mofetil 500 mg tablet 500 mg PO BID 05/15/19 11/06/24 History gabapentin 300 mg capsule 300 mg PO 4X/DAY 05/20/19 11/06/24 History (Neurontin) oxycodone-acetaminophen 5 mg-325 1 tab PO Q6H PRN Pain Score 1-05/2305/20/19 03/02/21 History mg tablet fluticasone propionate 50 2 spray intranasal DAILY PRN 05/21/19 11/05/24 History mcg/actuation nasal Allergies spray,suspension (Allergy Relief (fluticasone)) methocarbamol 750 mg tablet 750 mg PO 4X/DAY PRN 05/21/19 03/03/21 History Pain/Inflammation albuterol sulfate 90 mcg/actuation 1 - 2 puff inhalation Q4H PRN PRN 09/29/19 11/05/24 Rx aerosol inhaler Wheezing ##1 furosemide 40 mg tablet (Lasix) 80 mg PO DAILY 06/29/20 11/06/24 History potassium chloride 20 mEq 40 meq PO DAILY 07/24/20 11/06/24 History tablet,extended release aspirin 325 mg tablet 325 mg PO QHS 04/09/21 11/06/24 History cholecalciferol (vitamin D3) 25 25 mcg PO DAILY 04/09/21 11/06/24 History mcg (1,000 unit) capsule ferrous gluconate 324 mg (38 mg 324 mg PO TID 04/09/21 11/06/24 History iron) tablet meloxicam 15 mg tablet 15 mg PO DAILY PRN pain 04/09/21 11/06/24 History prednisone 10 mg tablet 10 mg PO DAILY 04/09/21 11/06/24 History esomeprazole magnesium 40 mg 40 mg PO DAILY #30 caps 09/27/24 11/07/24 Rx capsule,delayed release (Nexium) norethindrone acetate 5 mg tablet 5 mg PO DAILY 05/15/25 Unknown History Allergy/AdvReac Type Severity Reaction Status Date / Time nickel Allergy Severe Rash Verified 05/15/25 10:15 propoxyphene (From Allergy Intermediate unknown Verified 05/15/25 10:15 Darvocet-N 100) celecoxib (From Celebrex) Allergy Angioedema Verified 05/15/25 10:15 red (food color) Allergy Angioedema Verified 05/15/25 10:15 Family History Father Cancer lung Grandmother Diabetes Brother Hypertension Mother Hypercholesterolemia Surgical History (Updated 05/15/25 @ 10:30 by Zackery Moss) Hx of dilation and curettage Hx of tooth extraction History of esophagogastroduodenoscopy (EGD) History of cardiac catheterization History of hysteroscopy History of left heart catheterization (07/30/20) History of nasal surgery History of uterine fibroid (05/16/19) S/P bunionectomy S/P laparoscopic cholecystectomy History of bilateral tubal ligation Previous section S/P right knee surgery Social History Smoking Status: Former smoker how long ago did patient quit smokin years ago alcohol intake: never substance use type: does not use caffeine: Yes Type: carbonated beverages and coffee Number of servings: 6 Audit: Pertinent Findings Pertinent Findings EKG Perinent findings: 05/16/2019. Normal sinus rhythm T wave abnormality, consider anterior lateral ischemia. Prolonged QT. Stress test pertinent findings: 07/16/2020. EF is 70%. No evidence of ischemia or infarction on nuclear portion of the test. Echo (EF%) pertinent findings: 10/16/2024. EF is 65%. Normal PA pressure. No aortic valve stenosis noted. Heart catheterization pertinent findings: 07/31/2020. No significant coronary artery disease. No significant . Consult pertinent findings: August 17, 2020. Kim WEINER. 1. Palpitations-continue to monitor. Reviewed Holter. 2. Dyspnea on exertion-likely related to functional status. Encouraged to exercise more speak with her primary care doctor. 3. Abnormal EKG- Follow-up cardiac cath was normal. Patient can follow as needed. Additional pertinent findings: Holter monitor. 07/16/2020. Baseline rhythm was normal sinus. Rare PACs. No runs. No A-fib. Rare PVCs. No runs. No VT. Patient had a diary which noted chest pain, flutters/flip-flops/thumbs, shortness of breath and feeling woozy. These occasionally correlated with tachycardia and/or ectopy. Recommendation Anesthesia Recommendation Anesthesia recommendation: OPTIMIZED for anesthesia
--- NOTE | 2025-05-19 16:52 | HP.PCM.OB_ITS ---
History and Physical Date of Admission: 05/22/25 Expand All Collapse All Pre-Op History and Physical HPI: The patient is a 49 year old female presenting for pre-operative visit. She is scheduled for Hysteroscopy D&C, Endometrial ablation with Christine and Insertion of Liletta IUD on 05/22/25. Procedure discussed along with risks, benefits and complications. Other alternatives discussed for management. Consent form signed? No. PAST MEDICAL HISTORY PAST MEDICAL HISTORY Diagnosis Date ? Abdominal pain, left lower quadrant ? Anemia, unspecified ? Blood in stool ? Depressive disorder, not elsewhere classified ? Diarrhea ? Fibromyalgia ? Hemorrhage of gastrointestinal tract, unspecified ? Left ovarian cyst 03/18/2011 ? Lupus erythematosus PAST SURGICAL HISTORY PAST SURGICAL HISTORY Procedure Laterality Date ? BUNIONECTOMY, LAPIDUS-TYPE 06/2010 bilateral ? DELIVERY ONLY 1991 , low transverse ? CHOLECYSTECTOMY 2004 Cholecystectomy ? COLONOSCOPY W/BIOPSY SINGLE/MULTIPLE 02/21/2011 ? D&C, DIAG AND/OR THERAPEUTIC 11/07/2024 Hysteroscopy D&C, polpyectomy with symphion ? DILATION & CURETTAGE 05/2019 benign pathology done at [facility]- Dr. Roach ? LIG/TRNSXJ FLP TUBE ABDL/VAG APPR UNI/BI 1998 Tubal ligation ? PAST SURGICAL HISTORY OF 2007 torn patella tendon right knee ? PAST SURGICAL HISTORY OF 2008 right knee CURRENT MEDICATIONS Current Outpatient Medications Medication Sig Dispense Refill ? norethindrone (AYGESTIN) 5 mg tablet Take 1 tablet TID until bleeding stops for 24 hours, then 1 tablet BID x 3 days, then 1 tablet daily x 3 days. 35 tablet 0 ? Prasterone, DHEA, 25 mg tab Take 25 mg by mouth. ? albuterol HFA (PROVENTIL HFA, VENTOLIN HFA) 90 mcg/actuation inhaler Inhale as instructed. ? fluticasone (FLONASE) 50 mcg/actuation nasal spray Use in the nose. ? ergocalciferol, vitamin D2, (VITAMIN D2 ORAL) Take by mouth. D3 ? esomeprazole (NEXIUM) 20 mg capsule Take 20 mg by mouth DAILY (6 AM). ? METHOCARBAMOL ORAL Take by mouth as needed. ? PARoxetine (PAXIL) 20 mg tablet Take 20 mg by mouth once daily. ? gabapentin (NEURONTIN) 300 mg capsule Take 1 capsule by mouth four times daily. 0 ? potassium chloride(K-DUR 10 MEQ TAB) Take 20 mEq by mouth. 0 0 ? FERROUS GLUCONATE 325 MG TAB 1 tab. three times daily 0 0 ? ASPIRIN 325 MG TAB Take by mouth. 0 0 ? furosemide(LASIX 40 MG TAB) Take one(1) tablet daily. 0 0 ? oxycodone hcl/acetaminophen(PERCOCET 7.5 MG-325 MG TAB) 1-2 tabs as needed 0 0 ? meloxicam(MOBIC 15 MG TAB) Take one(1) tablet daily. 0 0 ? multivitamins(DAILY MULTIVITAMIN TAB) Take one(1) tablet daily. 0 0 ? mycophenolate mofetil(CELLCEPT 500 MG TAB) 1 tab. twice daily 0 0 ? PREDNISONE 10 MG TAB Take one(1) tablet daily. 0 0 No current facility-administered medications for this visit. ALLERGIES: Nickel, Celebrex [Celecoxib], Darvocet A500 [Propoxyphene N-Acetam inophen], Propoxyphene, and Red Dye PERSONAL HISTORY: [SOCIAL HISTORY] [SOCIAL HISTORY] Social History Tobacco Use ? Smoking status: Former ? Smokeless tobacco: Never Vaping Use ? Vaping status: Never Used Substance Use Topics ? Alcohol use: Yes Comment: rarely ? Drug use: Never FAMILY HISTORY: FAMILY HISTORY FAMILY HISTORY Problem Relation Age of Onset ? other (Cancer, lung - heavy smoker) Father lung to brain ( at 68) ? Lipids Mother ? No Known Problems Brother in a car accident ? Diabetes Maternal Grandmother ? Colon Cancer Maternal Grandfather ? Diabetes Paternal Grandmother ? No Known Problems Paternal Grandfather ? Hypertension Brother ? No Known Problems Daughter ? No Known Problems Daughter ? No Known Problems Daughter ? No Known Problems Son REVIEW OF SYMPTOMS: negative except as noted above PHYSICAL EXAMINATION: VITALS: Last menstrual period 03/17/2025. GENERAL: The patient is well nourished, well hydrated in no acute distress. , The patient is oriented to time, place, and person. IMPRESSION: 49yo with PLAN: 49yo with AUB, adenomyosis , thickened endometrium Pt has been counseled on risks/benefits and alternatives of surgery including but not limited to anesthesia, bleeding, infection, subsequent injury to pelvic structures including bowel, bladder, ureters and vessels. Pt wishes to proceed with surgery at this time. Off label use of IUD after ablation reviewed. Pre and post op instructions reviewed- will sign consent day of surgery. I have reviewed and updated past medical and surgical history, medications and allergies Catalina Roach MD [facility] on 05/16/2025 Note shared with patient
[2025-05-22] VITALS (8 sets, daily range): BP systolic 100–138; BP diastolic 65–96; PULSE 52–71; RESP 12–18; TEMP 36.5–36.9; O2SAT 97–100; BMI 34.4
--- NOTE | 2025-05-22 07:17 | PCM.PRE.AN2 ---
ASA Classification* ASA Classification ASA Classification: 2 Assessment & Plan Anesthesia* Anesthesia Assessment Anesthesia Assessment: Discussed sedation and/or anesthesia options, risks, benefits, and alternatives with patient/parents/legal guardian/POA. Questions invited. The patient/parents/legal guardian/POA seems to understand and agrees to proceed with anesthesia plan. Reviewed the physical assessment, medical history, allergy history and patient home medications list prior to surgery/procedure/anesthetic and documented any changes. Performed airway and anesthesia risk assessments. Anesthesia Type Anesthesia Type: MAC Anesthesia Focused Assessment* Airway Assessment Mouth opens: >3 cm Mallampati Score: II Labs Anesthesia Preop lab: CBC WBC, (4.4-11.0) 7.8 K/mm3 11/07/24, 07:41 RBC, (4.2-5.4) 4.81 M/mm3 11/07/24, 07:41 Hgb, (12.0-15.0) 13.6 g/dL 11/07/24, 07:41 Hct, (37-47) 41.5 % 11/07/24, 07:41 Plt Count, (150-450) 414 K/mm3 11/07/24, 07:41 CHEMISTRY Potassium, (3.3-5.1) 4.5 mmol/L 11/07/24, 07:41 Sodium, (133-145) 140 mmol/L 11/07/24, 07:41 Magnesium, (1.5-2.2) 1.9 mg/dL 03/06/25, 09:11 Phosphorus, (2.5-4.9) 2.6 mg/dL 03/05/21, 05:55 BUN, (4-19) 19 mg/dL 11/07/24, 07:41 Creatinine, (0.70-1.20) 0.87 mg/dL 11/07/24, 07:41 Glucose, (70-99) 92 mg/dL 11/07/24, 07:41 TSH, (0.300-4.200) 1.680 uIU/mL 03/06/25, 09:11 COAG PT, (11.7-14.9) 15.7 SECONDS H 03/04/21, 09:00 Urine Test Negative Negative 05/16/19, 05:52 Pre-Assessment Diagnosis/Proposed Procedure Planned Operative Procedure(s): HYSTEROSCOPY D&C,POSS POLYPECTOMY, SYMPHION, IUD INSERTION, ABLATION WITH TITO Anesthesia History Anesthesia History - gis physical scientist: Anesthesia History - gis physical scientist Hx Hospitalization Yes: 02/2025, FOOD POSIONING. 05/15/25 10:20 [place]. Any Problems With Anesthesia No 05/15/25 10:20 Cholinesterase deficiency No 05/15/25 10:20 You/Your Family Experience No 05/15/25 10:20 fever (hyperthermia) with Relationship Recent Exposure to Contagious No 11/07/24 07:29 Disease Does patient have nerve No 05/15/25 10:20 stimulator Patient instructed to have device shut off --Does patient have Pacemaker or ICD? When Was Last Pacemaker Check QUESTION #4 FULL TEXT: You/Your Family Experience fever (hyperthermia) with Anesthesia Last Oral Intake Last Oral intake: Last Oral Intake NPO since Meds taken in AM with sips of water? Meds patient instructed to take am of surgery PONV PONV - gis physical scientist: PONV - gis physical scientist Female Yes 05/15/25 10:20 HX of Motion Sickness No 05/15/25 10:20 HX of N/V After Surgery No 05/15/25 10:20 Non-Smoker Yes 05/15/25 10:20 Duration of Surgery greater No 05/15/25 10:20 than 60 minutes Number of Risk Factors 2 05/15/25 10:20 PONV Score Moderate Risk 05/15/25 10:20 Height & Weight Height & Weight: Anesthesia: Height & Weight Height 5 ft 2 in 11/07/24 07:29 Respiratory Assessment Respiratory Assessment - gis physical scientist: Respiratory Tract Infection Hx - gis physical scientist Hx Respiratory Tract Infection No 05/15/25 10:20 STOP Sleep Apnea STOP Sleep Apnea - gis physical scientist: STOP Sleep Apnea - gis physical scientist Hx Hypertension No 05/15/25 10:20 Hx Sleep Apnea No 05/15/25 10:20 CPAP BIPAP Do you snore loudly (louder No 05/15/25 10:20 than talking or can be heard Do you often feel tired/ No 05/15/25 10:20 fatigued/ sleepy during daytime? Has anyone observed you stop No 05/15/25 10:20 breathing during sleep? STOP Results Negative 05/15/25 10:20 QUESTION #5 FULL TEXT : Do you snore loudly (louder than talking or can be heard through closed doors)? 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 Specify any problems Hx of Preganancy in last 3 No 05/15/25 10:20 Months Nurse Filling Out Transfusion [email or web address] 05/15/25 10:20 & Questions: Date: 05/15/25 05/15/25 10:20 Time: 10:22 05/15/25 10:20 Patient unable to answer at this time (ie. confused, unrespo /Reproduction History /Reproductive History - gis physical scientist: /Reproductive Hx- gis physical scientist Hx Now No 05/15/25 10:20 Gestational Age (in weeks): EDC: Hx Hx Para Hx Section SAB No 05/15/25 10:20 Active Medications Active Medications: Current Medications Generic Name Dose Route Start Last Admin Trade Name Freq PRN Reason Stop Dose Admin Lactated Ringer's 1,000 mls @ 15 mls/hr 05/22/25 07:30 IV .Q48H NIECY PFSH Medical History Barretts esophagus Loss of hearing Wears glasses Alcohol use History of steroid therapy Anemia Easy bruising Back pain Syncope Gastric reflux Former smoker Shortness of breath on exertion History of edema Cardiology follow-up encounter History of echocardiogram History of stress test History of irregular heartbeat Ileitis Depression Palpitations Chest pain Dyspnea on exertion Vitamin D deficiency Abnormal EKG Fibromyalgia Essential hypertension Submucous uterine fibroid Endometrial polyp Abnormal uterine bleeding (AUB) Multiple lipomas Anemia Hypokalemia Lupus Home Medications ?Medication ?Instructions ?Recorded ?Last Taken ?Type multivitamin 1 tab PO DAILY 11/08/17 11/06/24 History paroxetine HCl 20 mg tablet 20 mg PO QHS 11/08/17 11/06/24 History mycophenolate mofetil 500 mg tablet 500 mg PO BID 05/15/19 11/06/24 History gabapentin 300 mg capsule 300 mg PO 4X/DAY 05/20/19 11/06/24 History (Neurontin) oxycodone-acetaminophen 5 mg-325 1 tab PO Q6H PRN Pain Score 1-05/2305/20/19 03/02/21 History mg tablet fluticasone propionate 50 2 spray intranasal DAILY PRN 05/21/19 11/05/24 History mcg/actuation nasal Allergies spray,suspension (Allergy Relief (fluticasone)) methocarbamol 750 mg tablet 750 mg PO 4X/DAY PRN 05/21/19 03/03/21 History Pain/Inflammation albuterol sulfate 90 mcg/actuation 1 - 2 puff inhalation Q4H PRN PRN 09/29/19 11/05/24 Rx aerosol inhaler Wheezing ##1 furosemide 40 mg tablet (Lasix) 80 mg PO DAILY 06/29/20 11/06/24 History potassium chloride 20 mEq 40 meq PO DAILY 07/24/20 11/06/24 History tablet,extended release aspirin 325 mg tablet 325 mg PO QHS 04/09/21 11/06/24 History cholecalciferol (vitamin D3) 25 25 mcg PO DAILY 04/09/21 11/06/24 History mcg (1,000 unit) capsule ferrous gluconate 324 mg (38 mg 324 mg PO TID 04/09/21 11/06/24 History iron) tablet meloxicam 15 mg tablet 15 mg PO DAILY PRN pain 04/09/21 11/06/24 History prednisone 10 mg tablet 10 mg PO DAILY 04/09/21 11/06/24 History esomeprazole magnesium 40 mg 40 mg PO DAILY #30 caps 09/27/24 11/07/24 Rx capsule,delayed release (Nexium) norethindrone acetate 5 mg tablet 5 mg PO DAILY 05/15/25 Unknown History Allergy/AdvReac Type Severity Reaction Status Date / Time nickel Allergy Severe Rash Verified 05/15/25 10:15 propoxyphene (From Allergy Intermediate unknown Verified 05/15/25 10:15 Darvocet-N 100) celecoxib (From Celebrex) Allergy Angioedema Verified 05/15/25 10:15 red (food color) Allergy Angioedema Verified 05/15/25 10:15 Family History Father Cancer lung Grandmother Diabetes Brother Hypertension Mother Hypercholesterolemia Surgical History Hx of dilation and curettage Hx of tooth extraction History of esophagogastroduodenoscopy (EGD) History of cardiac catheterization History of hysteroscopy History of left heart catheterization (07/30/20) History of nasal surgery History of uterine fibroid (05/16/19) S/P bunionectomy S/P laparoscopic cholecystectomy History of bilateral tubal ligation Previous section S/P right knee surgery Social History Smoking Status: Former smoker how long ago did patient quit smokin years ago alcohol intake: never substance use type: does not use caffeine: Yes Type: carbonated beverages and coffee Number of servings: 6 Review of Systems (Anesthesia) ROS Narrative System reviewed and no additional complaints, except as documented.
[2025-05-22 07:57] LABS: Internal QC Validated? YES +Cl - CLEAR BKGD; Pregnancy, Urine Negative Negative; Record Kit Lot#,Urine Preg 0000980607
[2025-05-22] MEDS: Lactated Ringers 1,000 ML 15 ML IV (08:04)
--- NOTE | 2025-05-22 08:37 | PCM.DC ---
Discharge Instructions DC O2, CPAP, BIPAP needs Home O2 Discharge instructions: No Dressing / Incision May resume sexual activity in: 1 week Dressing / Incision Call your doctor if you observe: Fever of 101 or Higher, Inability to urinate, Using more than 1 pad per hour and Uncontrolled pain Follow Up Care Please Follow Up With: Catalina Ahn MD When: I will call you with pathology results in 1-2 weeks, if you feel you need an appointment please call [phone] Test Results: Test results from this visit will be discussed in further detail at your follow-up appointment, if applicable. Discharge Plan Admission Attending Provider: Catalina Ahn Primary Care Provider: Ed Barajas Instructions Print Language: Yemeni Discharge Orders/Prescriptions Prescriptions: No Action multivitamin tablet 1 tab PO DAILY paroxetine HCl 20 mg tablet 20 mg PO QHS gabapentin [Neurontin] 300 mg capsule 300 mg PO 4X/DAY oxycodone-acetaminophen 5-325 mg tablet 1 tab PO Q6H PRN (Reason: Pain Score 1-10/10) methocarbamol 750 mg tablet 750 mg PO 4X/DAY PRN (Reason: Pain/Inflammation) furosemide [Lasix] 40 mg tablet 80 mg PO DAILY fluticasone propionate [Allergy Relief (fluticasone)] 50 mcg/actuation spray,suspension 2 spray INTRANASAL DAILY PRN (Reason: Allergies) meloxicam 15 mg tablet 15 mg PO DAILY PRN (Reason: pain) aspirin 325 mg tablet 325 mg PO QHS cholecalciferol (vitamin D3) 25 mcg (1,000 unit) capsule 25 mcg PO DAILY mycophenolate mofetil 500 MG tablet 500 mg PO BID albuterol sulfate 1 INHALER inhaler 1 - 2 puff INHALATION Q4H PRN PRN (Reason: Wheezing) Qty: 1 0RF potassium chloride 20 mEq tablet extended release 40 meq PO DAILY ferrous gluconate 324 mg (38 mg iron) tablet 324 mg PO TID prednisone 10 mg tablet 10 mg PO DAILY Taper: Prednisone Taper 40 mg WITH BREAKFAST for 3 Days and 0 Hour 30 mg WITH BREAKFAST for 3 Days and 0 Hour 20 mg WITH BREAKFAST for 3 Days and 0 Hour 10 mg WITH BREAKFAST for 3 Days and 0 Hour norethindrone acetate 5 mg tablet 5 mg PO DAILY esomeprazole magnesium [Nexium] 40 mg capsule,delayed release(DR/EC) 40 mg PO DAILY Qty: 30 1RF Referrals / Follow Up: Ed Barajas MD [Primary Care Provider, Family Practice] Disposition Disposition (needs filled in before D/C Order can be placed): Home, Self Care
--- NOTE | 2025-05-22 08:38 | PCM.OPRPT ---
Operative Report (Standard) Operative Information Date of Procedure: 05/22/25 Pre-Operative Diagnosis: AUB, thickened endometrium, Adenomyosis Post-Operative Diagnosis: same , endometrial polyps Surgery/Procedure Performed: hysteroscopy, D&C, polypectomy, endometrial ablation with Christine face boss: Yes Satellite Specialist: Estela Miguel [id number] Tasks completed by surgical first assistant: Retracting Type of Anesthesia: MAC RN Documented Start/Stop Times: Operation Date: 05/22/25 08:45 Case Time Into Pre-Op 05/22/25 07:15 Out of Pre-Op 05/22/25 08:29 Procedure Start Time: 08:54 Procedure Stop Time: 09:09 Select all DRAINS/GRAFTS/IMPLANTS that apply: None Estimated Blood Loss: 5cc Fluids Replaced: 500 Specimen collected: Yes Description of specimen(s) removed: endometrial curettings Description of surgery: After informed consent was obtained patient taken to the operating room she is placed in supine position she is given anesthesia simply self insert she is prepped draped normal sterile fashion. Bladder was drained prior to the start of the procedure. At this time the weighted speculum was placed the posterior fornix of the vagina then a single-tooth tenaculum was used to grasp the anterior lip of the cervix. At this time the uterus was sounded to approximately 10.5 cm the endocervical canal sounded to 4.0 cm. Next cervix was dilated in incremental fashion. Once adequate dilatation was achieved the hysteroscope was inserted using normal saline as distention medium. On hysteroscopy there were two polyps noted one arising from right lower uterine segment and one posterior lower uterine segment. polyps were removed with symphion resecting device and Endometrial curettings obtained with device. Large amt of endometrial tissue present- will be sent to pathology for evaluation. At this time the Christine device was opened. The Christine was set at 6.5 cm. The device was activated. Prior to activation the field test was performed and cavity was intact. The device was then fired and activated for 120 seconds. Once the 120 seconds was completed the device was removed intact and the tenaculum was removed. Good hemostasis was appreciated. Weighted speculum was removed. Vaginal sweep was performed is negative. There were no complications. Anticipated normal postoperative course for this patient. Instrument and lap count were correct ?2. Originally Liletta IUD was to be placed- however insurance does not cover. Surgical Findings: endometrial polyps and thickened endometrial tissue Complications Complications: No Admit VTE Documentation VTE Present on Admission: Yes VTE Mechan Device Prophylaxis: SCD's VTE Pharm Prophylaxis ordered?: No Reason prophylaxis not ordered: Treatment Not Indicated
[2025-05-22] MEDS: Midazolam 2 MG/2 ML Syringe IV (08:41)
[2025-05-22] MEDS: Lidocaine 1% (5 ml sdv) 5 ML Vial IV (08:41)
[2025-05-22] MEDS: Lactated Ringers 500 ML IV (08:41)
--- NOTE | 2025-05-22 08:45 | EMB_PTH ---
PATIENT: ZAC LOCKHART LOC: [facility] [place] U#:[id number] AGE/SX: 49/F ROOM: RE05/22/[address]: Dr. Catalina Ahn, MDDOB: 1975 BED: DIS: 05/22/2025 SPEC #: [id number] RECD: 05/22/25 11:55 STATUS: ADIA MIHIR #: [id number] KENZIE: 05/22/25 08:[address]: Catalina Ahn DEPT: SURGICAL PATHOLOGY RECD BY: Neto Vieyra ENTERED: 05/22/25 13:48 SP TYPE: ENDOM BX/C NICOLASA DR: Dr. Ed Barajas MD Tissues: A - Endometrium, NOS Procedures: Surgery Specimen Level IV HEADER OPERATION: Hysteroscopy, D&C, possible polypectomy PRE-OP DIAGNOSIS: Abnormal uterine bleeding, adenomyosis, thickened endometrium TISSUE SUBMITTED: A- Endometrial curettings and polyp MICROSCOPIC DIAGNOSIS A. Endometrium, curettage: * Inactive endometrium with decidualized stromal alteration and areas of stromal breakdown consistent with hormonal therapy effect MICROSCOPIC DESCRIPTION Slides are reviewed. GROSS DESCRIPTION A. Received in formalin labeled with the patient's name and date of . Designated as endometrial curettings and polyp is a 6.9 x 4.4 x 1.2 cm aggregate of hannah-pink, rubbery, somewhat edematous, irregular tissue fragments and clotted blood. Entirely submitted in 11 cassettes. MD [id number]
[2025-05-22] MEDS: fentaNYL 100 MCG/2 ML Ampul 50 MCG IV (08:54)
[2025-05-22] MEDS: Ketorolac 30 MG/ML Syringe IV (09:14)
--- NOTE | 2025-05-22 10:39 | PCM.POST.ANE ---
Anesthesia: Postop Eval I Current Vital Signs Temperature: 98.4 F Pulse Rate: 64 Blood Pressure: 116/66 Respiratory Rate: 12 Pulse Ox: 97 Oxygen Delivery Method: Room Air Assessment Airway patent: Yes Spontaneous unlabored respirations: Yes Mental status: Awake and Calm nausea: No Vomiting: No Anesthesia Complication: No Fluid Hydration Crystalloid volume administer (ml): 500 Total IV fluid infused: 500 Progress Note Anesthesia document: Postop Eval 1 completed: Yes
--- NOTE | 2025-05-22 12:30 | POSTOPAN2_ITS ---
Anesthesia Postop Eval I Sum Postop Eval Completion status Anesthesia document: Postop Eval 1 completed: Yes Anesthesia Postop Eval I Summary Anesthesia Postop Eval I Summary: Anesthesia Postop Eval I: Assessment Summary Airway patent Yes 05/22/25 10:40 CHRISTIAN COUNSELOR.SHOF Spontaneous unlabored Yes 05/22/25 10:40 CHRISTIAN COUNSELOR.SHOF respirations Mental status Awake,Calm 05/22/25 10:40 CHRISTIAN COUNSELOR.SHOF nausea No 05/22/25 10:40 CHRISTIAN COUNSELOR.SHOF Vomiting No 05/22/25 10:40 CHRISTIAN COUNSELOR.SHOF Anesthesia Postop Eval I: Fluid Summary Crystalloid volume administer 500 05/22/25 10:40 CHRISTIAN COUNSELOR.SHOF (ml) Colloids volume administered ( ml) Blood Product volume administered (ml) Total IV fluid infused 500 05/22/25 10:40 CHRISTIAN COUNSELOR.SHOF Anesthesia Postop Eval I: Summary Notes Anesthesia Complication No 05/22/25 10:40 CHRISTIAN COUNSELOR.SHOF Anesthesia Complication Comment: Post-operative progress note Anesthesia: Postop Eval II Evaluation Mental status: Awake Pain Level: 0 nausea: No Vomiting: No
--- NOTE | 2025-05-22 12:30 | PCM.POSTANE2 ---
Anesthesia Postop Eval I Sum Postop Eval Completion status Anesthesia document: Postop Eval 1 completed: Yes Anesthesia Postop Eval I Summary Anesthesia Postop Eval I Summary: Anesthesia Postop Eval I: Assessment Summary Airway patent Yes 05/22/25 10:40 PAPER CONE MACHINE OPERATOR.SHOF Spontaneous unlabored Yes 05/22/25 10:40 PAPER CONE MACHINE OPERATOR.SHOF respirations Mental status Awake,Calm 05/22/25 10:40 PAPER CONE MACHINE OPERATOR.SHOF nausea No 05/22/25 10:40 PAPER CONE MACHINE OPERATOR.SHOF Vomiting No 05/22/25 10:40 PAPER CONE MACHINE OPERATOR.SHOF Anesthesia Postop Eval I: Fluid Summary Crystalloid volume administer 500 05/22/25 10:40 PAPER CONE MACHINE OPERATOR.SHOF (ml) Colloids volume administered ( ml) Blood Product volume administered (ml) Total IV fluid infused 500 05/22/25 10:40 PAPER CONE MACHINE OPERATOR.SHOF Anesthesia Postop Eval I: Summary Notes Anesthesia Complication No 05/22/25 10:40 PAPER CONE MACHINE OPERATOR.SHOF Anesthesia Complication Comment: Post-operative progress note Anesthesia: Postop Eval II Evaluation Mental status: Awake Pain Level: 0 nausea: No Vomiting: No
== END 2025-05-22 10:58 | disposition home or self-care (01) ==
LOC: SDC 07:14 → AC 07:15
PROVIDERS: Anesthesiology; PCP Family Medicine; Referring Provider Obstetrics & Gynecology; Visit Provider Obstetrics & Gynecology
PROC: 0UB98ZZ Excision of Uterus, Via Natural or Artificial Opening Endoscopic (ICD-10-PCS; CPT 58558; principal; 2025-05-22 08:30)
DX: N93.9 Abnormal uterine and vaginal bleeding, unspecified (principal); N84.0 Polyp of corpus uteri; N80.03 Adenomyosis of the uterus; Z79.82 Long term (current) use of aspirin; Z87.891 Personal history of nicotine dependence; R93.89 Abnormal findings on diagnostic imaging of other specified body structures; K21.9 Gastro-esophageal reflux disease without esophagitis; I10 Essential (primary) hypertension; Z79.899 Other long term (current) drug therapy
CPT/HCPCS: 58563; 00952; 81025; 88305